=== PATIENT | female | born 1955 | race Caucasian/White ===

== ENCOUNTER 2018-01-30 12:37 | Observation (INO) ==
--- NOTE | 2018-01-30 12:59 | Emergency Department Note ---
ED Disposition Clinical Impression: Troponin level elevated Disposition: Admitted As Inpatient Condition on Discharge: Good Additional Instructions: Dr Houser ([facility]) will take pt to [facility] - Critical Care Critical Care Time: No Attestation: On , the high probability of a clinically significant, sudden or life threatening deterioration of the following system(s) required my full and direct attention, intervention and personal management. The time I documented below is in addition to time spent performing reported procedures but includes the following listed in this critical care notation. Medical Decision Making - Medical Records Medical records reviewed: Yes: I reviewed the patient's medical records. - [place] Inquiry Pt receiving controlled substance: No Vital Signs: 01/30/18 12:39 Temperature 97.8 F Temperature Source Oral Pulse Rate [Left Radial] 98 H Respiratory Rate 22 Blood Pressure [Right Arm] 131/74 Blood Pressure Mean [Right Arm] 93 Blood Pressure Source [Right Arm] Automatic Cuff Blood Pressure Position [Right Arm] Sitting 02 Sat by Pulse Oximetry 74 L Oxygen Delivery Method Room Air - Lab Data Lab results reviewed: Yes: I reviewed the patient's lab results. Lab Results 01/30/18 13:05: WBC 15.9 H, RBC 4.69, Hgb 13.8, Hct 42.6, MCV 90.9, MCH 29.5, MCHC 32.4, RDW 14.7, Plt Count 347, MPV 7.7, Neut % (Auto) 85.5 H, Lymph % (Auto) 9.3 L, [place] % (Auto) 4.6, Eos % (Auto) 0.3, Baso % (Auto) 0.3, Neut # (Auto) 13.6 H, Lymph # (Auto) 1.5, [place] # (Auto) 0.7, Eos # (Auto) 0.1, Baso # (Auto) 0.0, Total Counted 100, Neutrophils % (Manual) 84 H, Band Neutrophils % 2.0, Lymphocytes % (Manual) 9 L, Monocytes % (Manual) 5, Platelet Estimate Normal, RBC Morphology Normal 01/30/18 13:05: Sodium 131 L, Potassium 3.8, Chloride 93 L, Carbon Dioxide 27, Anion Gap 14.8, BUN 27 H, Creatinine 0.91, Estimated Creat Clear 61, Estimated GFR 63, Est GFR ( Amer) 76, Glucose 115 H, Calcium 9.4, Total Bilirubin 1.1 H, AST 13 L, ALT 24, Alkaline Phosphatase 144 H, Troponin I 0.91 H, Total Protein 8.2, Albumin 2.8 L, Globulin 5.4 H, Albumin/Globulin Ratio 0.5 L 01/30/18 13:05: Lactate 1.8 01/30/18 13:05: B-Natriuretic Peptide 1310 H 01/30/18 13:05: D-Dimer 955 H* 01/30/18 13:15: Influenza Type A Ag Negative, Influenza Type B Ag Negative Result diagrams: 01/30/18 13:05 01/30/18 13:05 Orders (Tests/Meds): ED MEDICATIONS Generic Name Dose Route Start Last Admin Trade Name Freq PRN Reason Stop Dose Admin Levofloxacin/Dextrose 500 mg in 100 mls @ 100 mls/hr 01/30/18 14:15 01/30/18 14:13 Levaquin 500mg/100ml Premix IV 02/13/18 14:14 100 mls/hr Q24H SHRUTHI Administration Protocol Discontinued Medications Generic Name Dose Route Start Last Admin Trade Name Freq PRN Reason Stop Dose Admin Albuterol/Ipratropium 3 ml 01/30/18 12:55 01/30/18 12:55 Duoneb 3ml Neb IH 01/30/18 12:56 3 ml ONCE ONE Administration Aspirin 324 mg 01/30/18 14:51 01/30/18 14:54 Aspirin 81mg Chewable Tablet PO 01/30/18 14:52 324 mg ONCE ONE Administration Iopamidol 75 ml 01/30/18 14:32 01/30/18 14:33 [id number]; 75ml Vial IV 01/30/18 14:33 75 ml ONCE ONE Administration Protocol Methylprednisolone Sodium Succinate 125 mg 01/30/18 12:55 01/30/18 13:01 Solu-Medrol 125mg/2ml Vial IM 01/30/18 12:56 125 mg ONCE ONE Administration Nitroglycerin 0.5 gm 01/30/18 14:51 01/30/18 14:54 Nitroglycerin 1 Inch Oint Udp TD 01/30/18 14:52 0.5 gm ONCE ONE Administration Sodium Chloride 50 ml 01/30/18 14:32 01/30/18 14:32 Rad-Ns 50ml Vial IV 01/30/18 14:33 50 ml ONCE ONE Administration Sodium Chloride 10 ml 01/30/18 14:32 01/30/18 14:33 Rad-Saline Flush 10ml Syringe IV 01/30/18 14:33 10 ml ONCE ONE Administration Ticagrelor 180 mg 01/30/18 14:51 01/30/18 14:54 Brilinta 90mg Tablet PO 01/30/18 14:52 180 mg ONCE ONE Administration ORDERS Category Date Time Status CTA Chest [CT angio chest] Stat Cat Scan 01/30/18 14:06 Taken Blood Culture Stat Micro 01/30/18 13:05 Received ECG Request by /Angella Stat Y 01/30/18 14:30 Ordered - ECG Data Tracing #1 I reviewed this ECG and interpreted as documented below: Normal Sinus Rhythm: Yes (anterior t abn, no stemi) General Adult HPI - General Chief complaint: Shortness of Breath/Dyspnea Stated complaint: SOA Hasnt eated 4 days Time Seen by Provider: 01/30/18 12:56 Mode of Arrival: Ambulatory Limitations: No Limitations Description of Symptoms (Recalled from ER Triage Doc. by RN): states she had an ear infection and what she thought was bronchitis over . States she got better but over the past four days she has had trouble breathing and has been unable to eat - History of Present Illness HPI narrative: mild to mod off and on congested cough today, no fever, speech fluent - Related Data Home Medications Medication Instructions Recorded Confirmed No Known Home Medications 01/30/18 01/30/18 Allergies Allergy/AdvReac Type Severity Reaction Status Date / Time No Known Allergies Allergy Verified 01/30/18 12:53 [facility] History I have reviewed the patient's past medical history: Yes - Social History Educational Level: Completed High School Smoking Status: Former smoker Tobacco Type: cigarettes Alcohol Intake: never - Psychiatric History Expresses thoughts of harming self/others: None Suicide Plan Description: No Plan ROS Obtained: Yes Systems reviewed as appropriate & no additional complaints - Constitutional Constitutional: Denies fever(s) - Eyes Eyes: Denies eye discharge - ENT Ears, Nose, Mouth, and Throat: Denies nasal congestion - Cardiovascular Cardiovascular: Denies chest pain - Respiratory Respiratory: Yes cough, Yes dyspnea - Gastrointestinal Gastrointestingal: Denies: abdominal pain - Musculoskeletal Musculoskeletal: Denies muscle weakness - Integumentary/Breasts Skin/Breast: Denies rash - Neurologic Neurologic: Denies dizziness Physical Exam - General General appearance: alert, in no apparent distress - Head Head exam: atraumatic - Eye Eye exam: Present: normal appearance - ENT ENT exam: Present: normal exam - Neck Neck exam: Present: normal inspection - Chest Chest inspection: Present: normal inspection - Respiratory Respiratory exam: Present: wheezes. Absent: stridor - Cardiovascular Cardiovascular exam: Present: regular rate, normal rhythm - Abdominal Exam Abdominal exam: Present: soft. Absent: rebound - Extremities Exam Extremities exam: Present: full ROM - Neurological Exam Neurological exam: Present: alert, oriented X3 - Psychiatric Psychiatric exam: Present: normal affect - Skin Skin exam: Present: warm, dry
[2018-01-30 13:28] LABS: Basophils % 0.3 % (0.1-2.0); Eosinophils # 0.1 K/mm3 (0.0-0.4); Eosinophils % 0.3 % (0.1-12.0); Hematocrit 42.6 % (37.0-47.0); Hemoglobin 13.8 g/dL (12.2-16.2); Lymphocytes # 1.5 K/mm3 (0.7-4.5); Lymphocytes % 9.3 % (10-50); Mean Corpuscular HGB Conc 32.4 g/dL (31.8-35.4); Mean Corpuscular Hemoglobin 29.5 pg (27.0-31.2); Mean Corpuscular Volume 90.9 fl (81-99); Mean Platelet Volume 7.7 fl (7.4-10.4); Monocytes # 0.7 K/mm3 (0.1-1.0); Monocytes % 4.6 % (1.7-9.3); Neutrophils # 13.6 K/mm3 (1.8-7.8); Neutrophils % 85.5 % (37.0-80.0); Platelet Count 347 K/mm3 (142-424); Red Blood Count 4.69 M/mm3 (4.20-5.40); Red Cell Distribution Width 14.7 % (11.5-17.5); White Blood Count 15.9 K/mm3 (4.8-10.8)
[2018-01-30 14:00] LABS: Lymphocytes % 9 % (10-50); Monocytes % 5 % (2-9); Neutrophils % 84 % (42-76); RBC Morphology Normal; Total Cells Counted 100
[2018-01-30 14:02] LABS: Albumin Level 2.8 gm/dL (3.4-5.0); Albumin/Globulin Ratio 0.5 (1.1-1.8); Anion Gap 14.8 mEq/L (5-15); Bilirubin,Total 1.1 mg/dL (0.2-1.0); Calcium 9.4 mg/dL (8.5-10.1); Globulin 5.4 gm/dl (1.3-3.2); Potassium 3.8 mmoL/L (3.5-5.1); Total Protein,Serum 8.2 gm/dL (6.4-8.2)
--- NOTE | 2018-01-30 14:54 | Consult Report ---
History of Present Illness Consult date: 01/30/18 Consult reason: chest pain, shortness of breath Chief complaint: Chest pain, elevated troponin Additional 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:: 1. Tobacco use 2. Hospitalized, 01/2018, for SOA with elevated D-dimer (CT of chest negative for PE) along with elevated troponin (0.91) with abnormal EKG (PRWP anteriorly with ST coving) for which patient had cardiac cath (no evidence of acute thrombus or significant stenosis). Likely all related to pneumonia. History of present illness: 62-year-old white female with tobacco use presented to the ER for shortness of breath. Patient relates recent cold-like symptoms that progressed to difficulty hearing and possible ear infection to now with shortness of breath and cough. She denies any chest pain but relates chest tightness and shortness of breath with exertion. She does smoke. Denies any history of hypertension or diabetes. Initial ER workup revealed elevated troponin. EKG obtained after patient patient returned from CT scan for elevated d-dimer. EKG shows sinus rhythm with slight coving of the ST segments in the anterior leads. Cardiology consulted for evaluation recommendations. [facility] History - *Social History Educational Level: Completed High School Smoking Status: Former smoker Tobacco Type: cigarettes Alcohol Intake: never - Psychiatric History Expresses thoughts of harming self/others: None Suicide Plan Description: No Plan Meds Home Medications Medication Instructions Recorded Confirmed Type No Known Home Medications 01/30/18 01/30/18 History Allergies Allergy/AdvReac Type Severity Reaction Status Date / Time No Known Allergies Allergy Verified 01/30/18 12:53 Review of Systems - *Cardiovascular Reports chest pain, Reports shortness of breath with activity - *Respiratory Reports shortness of breath with activity - *Gastrointestinal Denies abdominal pain, Denies loose stools - *Genitourinary Denies blood in urine - *Musculoskeletal Denies joint pain, Denies back pain - *Neurologic Denies dizziness Exam Vital signs and Labs for Last 24 Hours: Temp Pulse Resp BP Pulse Ox 97.8 F 98 H 22 131/74 74 L 01/30/18 12:39 01/30/18 12:39 01/30/18 12:39 01/30/18 12:39 01/30/18 12:39 Laboratory Results - last 24 hr 01/30/18 13:05: WBC 15.9 H, RBC 4.69, Hgb 13.8, Hct 42.6, MCV 90.9, MCH 29.5, MCHC 32.4, RDW 14.7, Plt Count 347, MPV 7.7, Neut % (Auto) 85.5 H, Lymph % (Auto) 9.3 L, [place] % (Auto) 4.6, Eos % (Auto) 0.3, Baso % (Auto) 0.3, Neut # (Auto) 13.6 H, Lymph # (Auto) 1.5, [place] # (Auto) 0.7, Eos # (Auto) 0.1, Baso # (Auto) 0.0, Total Counted 100, Neutrophils % (Manual) 84 H, Band Neutrophils % 2.0, Lymphocytes % (Manual) 9 L, Monocytes % (Manual) 5, Platelet Estimate Normal, RBC Morphology Normal 01/30/18 13:05: Sodium 131 L, Potassium 3.8, Chloride 93 L, Carbon Dioxide 27, Anion Gap 14.8, BUN 27 H, Creatinine 0.91, Estimated Creat Clear 61, Estimated GFR 63, Est GFR ( Amer) 76, Glucose 115 H, Calcium 9.4, Total Bilirubin 1.1 H, AST 13 L, ALT 24, Alkaline Phosphatase 144 H, Troponin I 0.91 H, Total Protein 8.2, Albumin 2.8 L, Globulin 5.4 H, Albumin/Globulin Ratio 0.5 L 01/30/18 13:05: Lactate 1.8 01/30/18 13:05: B-Natriuretic Peptide 1310 H 01/30/18 13:05: D-Dimer 955 H* 01/30/18 13:15: Influenza Type A Ag Negative, Influenza Type B Ag Negative I & O for Last 24 hours: Intake & Output 01/28/18 01/29/18 01/30/18 01/31/18 11:59 11:59 11:59 11:59 Weight 145 lb - *Routine Neck Exam Present: supple. Absent: JVD, carotid bruit - *Routine Respiratory Exam Present: decreased breath sounds, crackles, diminished air movement. Absent: accessory muscle use, rales, rhonchi, wheezes - *Routine Cardiovascular Exam Present: RRR. Absent: murmur, gallop, rubs - *Routine Abdominal Exam Present: soft. Absent: tenderness, distended, guarding - *Routine Extremities Exam Absent: edema, calf tenderness - *Routine Neurological Exam Present: alert, oriented X3, moving all extremities Assessment and Plan (1) Acute myocardial infarction Current visit: Yes Status: Acute Category: Medical Code(s): I21.9 - Acute myocardial infarction, unspecified (2) Tobacco use Current visit: Yes Status: Acute Category: Medical Code(s): Z72.0 - Tobacco use (3) Elevated d-dimer Current visit: Yes Status: Acute Category: Medical Code(s): R79.89 - Other specified abnormal findings of blood chemistry (4) COPD (chronic obstructive pulmonary disease) Current visit: Yes Status: Acute Category: Medical Code(s): J44.9 - Chronic obstructive pulmonary disease, unspecified - Assessment and plan all Dx Assessment and Plan for all problems:: In light of the elevated troponin with abnormal EKG, recommend proceeding with cardiac catheterization today. Patient is to be given 4 baby aspirin along with Brilinta 180 mg daily and 1 inch of Nitropaste. Further recommendations to follow.
--- NOTE | 2018-01-30 17:12 | History & Physical Report ---
*Admission Date: 01/30/18 *Chief complaint: SOA *History of present illness: 62yo F with Hx of COPD who presents with SOA, Cest pain, Elevated troponins. HEart cath after Cards consult Dx: PNA, NSTEMI 2, COPD, CHF exacerbation [facility] History 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: Denies:: Cancer, Diabetes Mellitus Type 1, Diabetes Mellitus Type 2, MRSA Other Surgeries: Yes: Tubal Ligation Amputation: No Fractures: No - *Social History Educational Level: Attended High School Smoking Status: Current every day smoker Tobacco Type: cigarettes # Packs/Day (cigarettes): 1 Alcohol Intake: former Alcohol Intake Frequency:: 0-2 drinks per day Occupational Status: retired Housing: house Household Members: children - Psychiatric History Expresses thoughts of harming self/others: None Suicide Plan Description: No Plan *Family Hx:: Non-contributory Review of Systems - *Neurologic Denies dizziness Meds Home Medications Medication Instructions Recorded Confirmed Type No Known Home Medications 01/30/18 01/30/18 History Allergies Allergy/AdvReac Type Severity Reaction Status Date / Time No Known Allergies Allergy Verified 01/30/18 12:53 Exam Vital signs and Labs for Last 24 Hours: Temp Pulse Resp BP Pulse Ox 98.3 F 79 20 143/86 H 96 01/30/18 16:35 01/30/18 16:35 01/30/18 16:35 01/30/18 16:35 01/30/18 16:35 Laboratory Results - last 24 hr 01/30/18 13:05: WBC 15.9 H, RBC 4.69, Hgb 13.8, Hct 42.6, MCV 90.9, MCH 29.5, MCHC 32.4, RDW 14.7, Plt Count 347, MPV 7.7, Neut % (Auto) 85.5 H, Lymph % (Auto) 9.3 L, [place] % (Auto) 4.6, Eos % (Auto) 0.3, Baso % (Auto) 0.3, Neut # (Auto) 13.6 H, Lymph # (Auto) 1.5, [place] # (Auto) 0.7, Eos # (Auto) 0.1, Baso # (Auto) 0.0, Total Counted 100, Neutrophils % (Manual) 84 H, Band Neutrophils % 2.0, Lymphocytes % (Manual) 9 L, Monocytes % (Manual) 5, Platelet Estimate Normal, RBC Morphology Normal 01/30/18 13:05: Sodium 131 L, Potassium 3.8, Chloride 93 L, Carbon Dioxide 27, Anion Gap 14.8, BUN 27 H, Creatinine 0.91, Estimated Creat Clear 61, Estimated GFR 63, Est GFR ( Amer) 76, Glucose 115 H, Calcium 9.4, Total Bilirubin 1.1 H, AST 13 L, ALT 24, Alkaline Phosphatase 144 H, Troponin I 0.91 H, Total Protein 8.2, Albumin 2.8 L, Globulin 5.4 H, Albumin/Globulin Ratio 0.5 L 01/30/18 13:05: Lactate 1.8 01/30/18 13:05: B-Natriuretic Peptide 1310 H 01/30/18 13:05: D-Dimer 955 H* 01/30/18 13:15: Influenza Type A Ag Negative, Influenza Type B Ag Negative I & O for Last 24 hours: Intake & Output 01/27/18 01/28/18 01/29/18 01/30/18 23:59 23:59 23:59 23:59 Weight 75.75 kg Assessment and Plan (1) Acute myocardial infarction Current visit: Yes Status: Acute Category: Medical Code(s): I21.9 - Acute myocardial infarction, unspecified (2) Tobacco use Current visit: Yes Status: Acute Category: Medical Code(s): Z72.0 - Tobacco use (3) Elevated d-dimer Current visit: Yes Status: Acute Category: Medical Code(s): R79.89 - Other specified abnormal findings of blood chemistry (4) COPD (chronic obstructive pulmonary disease) Current visit: Yes Status: Acute Category: Medical Code(s): J44.9 - Chronic obstructive pulmonary disease, unspecified (5) Pneumonia Current visit: Yes Status: Acute Category: Medical Code(s): J18.9 - Pneumonia, unspecified organism
[2018-01-31 06:36] LABS: Basophils # 0.1 K/mm3 (0-0.2); Basophils % 0.4 % (0.1-2.0); Eosinophils % 0.1 % (0.1-12.0); Hematocrit 40.8 % (37.0-47.0); Hemoglobin 13.3 g/dL (12.2-16.2); Lymphocytes # 1.6 K/mm3 (0.7-4.5); Lymphocytes % 13.3 % (10-50); Mean Corpuscular HGB Conc 32.6 g/dL (31.8-35.4); Mean Corpuscular Hemoglobin 29.7 pg (27.0-31.2); Mean Corpuscular Volume 91.2 fl (81-99); Monocytes # 0.8 K/mm3 (0.1-1.0); Monocytes % 6.5 % (1.7-9.3); Neutrophils # 9.5 K/mm3 (1.8-7.8); Neutrophils % 79.6 % (37.0-80.0); Platelet Count 338 K/mm3 (142-424); Red Blood Count 4.47 M/mm3 (4.20-5.40); Red Cell Distribution Width 14.7 % (11.5-17.5)
[2018-01-31 06:48] LABS: Anion Gap 10.5 mEq/L (5-15); Calcium 8.6 mg/dL (8.5-10.1); Potassium 3.5 mmoL/L (3.5-5.1)
[2018-01-31 06:55] LABS: Chol/HDL Ratio 3.9 (1-3.5)
--- NOTE | 2018-01-31 07:42 | Pharmacy Consult Notes ---
[facility] Pharmacy VTE Monitoring - Patient Demographics Admission date: 01/30/18 Report Date: 01/31/18 Time: 07:42 Allergies/Adverse Reactions: Patient Allergies No Known Allergies Allergy (Verified 01/30/18 12:53) Height: 1.68 m Weight: 75.75 kg Patient Problems: Current Active Problems Acute myocardial infarction (Acute) Tobacco use (Acute) Elevated d-dimer (Acute) COPD (chronic obstructive pulmonary disease) (Acute) Troponin level elevated (Acute) Pneumonia (Acute) - VTE Risk Labs: VTE Related Lab Results Hgb 13.3 g/dL (12.2-16.2) 01/31/18 06:09 Hct 40.8 % (37.0-47.0) 01/31/18 06:09 Plt Count 338 K/mm3 (142-424) 01/31/18 06:09 BUN 24 mg/dL (7-18) H 01/31/18 06:09 Creatinine 0.88 mg/dL (0.55-1.02) 01/31/18 06:09 Estimated Creat Clear 71 mL/min (50-200) 01/31/18 06:09 VTE Score: 2 - Prophylaxis VTE Prophylaxis Ordered?: Yes Types of VTE Prophylaxis: TEDS Knee High Location of Applied Device: Bilateral Lower Extremeties - VTE Diagnosis Confirmed Treatment or plan recommended: Continue Current Treatment
--- NOTE | 2018-01-31 09:40 | Progress Note ---
Subjective Date: 01/31/18 Time: 09:36 Principal diagnosis: SOA Interval history: 62-year-old white female sitting in bed in no acute distress. Still with some conversational shortness of breath. Right wrist access site looks good. Patient denies any chest pain, pressure or tightness peer Exam Vital signs and Labs for Last 24 Hours: Temp Pulse Resp BP Pulse Ox 97.9 F 80 17 114/68 84 L 01/31/18 08:00 01/31/18 08:00 01/31/18 08:00 01/31/18 08:00 01/31/18 08:56 Laboratory Results - last 24 hr 01/30/18 13:05: WBC 15.9 H, RBC 4.69, Hgb 13.8, Hct 42.6, MCV 90.9, MCH 29.5, MC HC 32.4, RDW 14.7, Plt Count 347, MPV 7.7, Neut % (Auto) 85.5 H, Lymph % (Auto) 9.3 L, [place] % (Auto) 4.6, Eos % (Auto) 0.3, Baso % (Auto) 0.3, Neut # (Auto) 13.6 H, Lymph # (Auto) 1.5, [place] # (Auto) 0.7, Eos # (Auto) 0.1, Baso # (Auto) 0.0, Total Counted 100, Neutrophils % (Manual) 84 H, Band Neutrophils % 2.0, Lymphocytes % (Manual) 9 L, Monocytes % (Manual) 5, Platelet Estimate Normal, RBC Morphology Normal 01/30/18 13:05: Sodium 131 L, Potassium 3.8, Chloride 93 L, Carbon Dioxide 27, Anion Gap 14.8, BUN 27 H, Creatinine 0.91, Estimated Creat Clear 61, Estimated GFR 63, Est GFR ( Amer) 76, Glucose 115 H, Calcium 9.4, Total Bilirubin 1.1 H, AST 13 L, ALT 24, Alkaline Phosphatase 144 H, Troponin I 0.91 H, Total Protein 8.2, Albumin 2.8 L, Globulin 5.4 H, Albumin/Globulin Ratio 0.5 L 01/30/18 13:05: Lactate 1.8 01/30/18 13:05: B-Natriuretic Peptide 1310 H 01/30/18 13:05: D-Dimer 955 H* 01/30/18 13:15: Influenza Type A Ag Negative, Influenza Type B Ag Negative 01/30/18 17:05: POC Glucose 129 H 01/30/18 18:51: Troponin I 0.73 H 01/30/18 21:56: Troponin I 0.55 H 01/30/18 22:26: POC Glucose 130 H 01/31/18 05:44: POC Glucose 104 01/31/18 06:09: WBC 12.0 H, RBC 4.47, Hgb 13.3, Hct 40.8, MCV 91.2, MCH 29.7, MCHC 32.6, RDW 14.7, Plt Count 338, MPV 8.0, Neut % (Auto) 79.6, Lymph % (Auto) 13.3, [place] % (Auto) 6.5, Eos % (Auto) 0.1, Baso % (Auto) 0.4, Neut # (Auto) 9.5 H, Lymph # (Auto) 1.6, [place] # (Auto) 0.8, Eos # (Auto) 0.0, Baso # (Auto) 0.1 01/31/18 06:09: Sodium 132 L, Potassium 3.5, Chloride 92 L, Carbon Dioxide 33 H D, Anion Gap 10.5, BUN 24 H, Creatinine 0.88, Estimated Creat Clear 71, Estimated GFR 65, Est GFR ( Amer) 79, Glucose 97, Calcium 8.6 01/31/18 06:09: Triglycerides 73, Cholesterol 116 L, LDL Cholesterol 71, VLDL Cholesterol 15, HDL Cholesterol 30, Cholesterol/HDL Ratio 3.9 H I & O for Last 24 hours: Intake & Output 01/28/18 01/29/18 01/30/18 01/31/18 11:59 11:59 11:59 11:59 Intake Total 840 / 840 Output Total 700 / 700 Balance 140 / 140 Weight 167 lb 0.002 oz - *Routine Respiratory Exam Present: decreased breath sounds, rhonchi, diminished air movement. Absent: accessory muscle use, rales, wheezes - *Routine Cardiovascular Exam Present: irregularly irregular. Absent: murmur, gallop, rubs - *Routine Extremities Exam Absent: edema, calf tenderness - *Routine Neurological Exam Present: alert, oriented X3, moving all extremities Progress Note: A&P (1) Tobacco use Status: Acute Current Visit: Yes (2) Elevated d-dimer Status: Acute Current Visit: Yes (3) COPD (chronic obstructive pulmonary disease) Status: Acute Current Visit: Yes (4) Non-ST elevation MO (NSTEMI) Status: Acute Current Visit: Yes (5) Diastolic dysfunction with heart failure Status: Acute Current Visit: Yes Assessment and Plan for All Diagnoses:: Patient's elevated troponin/non-ST elevation MO felt secondary to demand ischemia related to pulmonary compromise. Normal coronary arteries noted on cardiac catheterization but with evidence of diastolic dysfunction and hyperdynamic left ventricle. Patient has been started on beta-maricarmen therapy with improved heart rate and blood pressure. She will also be started on low- dose diuretic therapy as well (recommend either spironolactone or low-dose Lasix with lab work next week). Patient does have paroxysmal atrial fibrillation and will be started on Eliquis per Dr. Calder. Rod for discharge from cardiology standpoint. Follow-up in our clinic in 1 week.
--- NOTE | 2018-01-31 11:30 | H&P/Discharge Summary ---
General - General Admission date:: 01/30/18 Discharge date: 01/31/18 *Admission Date: 01/30/18 *Chief complaint: chest pain *History of present illness: 62yo F with Hx of COPD, tobacco use disorder who presents to ER with SOA, Chest pain, Elevated troponins. Patient complains of recent cold-like symptoms that progressed to difficulty hearing and possible ear infection to now with shortness of breath and cough. She denies any chest pain but relates chest tightness and shortness of breath with exertion. She does smoke. Denies any history of hypertension or diabetes. Initial ER workup revealed elevated trop onin. EKG obtained after patient patient returned from CT scan for elevated d- dimer. EKG shows sinus rhythm with slight coving of the ST segments in the anterior leads. Cardiology consulted for evaluation recommendations. Patient admitted to medicine for further management. Taken to [facility] due to elevated troponins, concern for inferior/septal infarct. Of note chest imaging showed positive airspace disease in the lingula consistent with pneumonia. Started on antibiotics. Required supplemental oxygen. Additionally had some volume overload status was given diuretics. [facility] History I have reviewed the patient's past medical history: Yes 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: Denies:: Cancer, Diabetes Mellitus Type 1, Diabetes Mellitus Type 2, MRSA Other Surgeries: Yes: Tubal Ligation Amputation: No Fractures: No - *Social History Educational Level: Completed High School Smoking Status: Former smoker Tobacco Type: cigarettes # Packs/Day (cigarettes): 1 Alcohol Intake: never Alcohol Intake Frequency:: 0-2 drinks per day Occupational Status: retired Housing: house Household Members: children - Psychiatric History Expresses thoughts of harming self/others: None Suicide Plan Description: No Plan *Family Hx:: Non-contributory Review of Systems - Review of Systems Review of systems:: pertinent systems reviewed and negative unless documented below - *Neurologic Denies dizziness Exam Vital signs and Labs for Last 24 Hours: Temp Pulse Resp BP Pulse Ox 98.0 F 74 18 126/66 92 L 01/31/18 11:23 01/31/18 11:23 01/31/18 11:23 01/31/18 11:23 01/31/18 11:23 Laboratory Results - last 24 hr 01/30/18 13:05: WBC 15.9 H, RBC 4.69, Hgb 13.8, Hct 42.6, MCV 90.9, MCH 29.5, MCHC 32.4, RDW 14.7, Plt Count 347, MPV 7.7, Neut % (Auto) 85.5 H, Lymph % (Auto) 9.3 L, [place] % (Auto) 4.6, Eos % (Auto) 0.3, Baso % (Auto) 0.3, Neut # (Auto) 13.6 H, Lymph # (Auto) 1.5, [place] # (Auto) 0.7, Eos # (Auto) 0.1, Baso # (Auto) 0.0, Total Counted 100, Neutrophils % (Manual) 84 H, Band Neutrophils % 2.0, Lymphocytes % (Manual) 9 L, Monocytes % (Manual) 5, Platelet Estimate Normal, RBC Morphology Normal 01/30/18 13:05: Sodium 131 L, Potassium 3.8, Chloride 93 L, Carbon Dioxide 27, Anion Gap 14.8, BUN 27 H, Creatinine 0.91, Estimated Creat Clear 61, Estimated GFR 63, Est GFR ( Amer) 76, Glucose 115 H, Calcium 9.4, Total Bilirubin 1.1 H, AST 13 L, ALT 24, Alkaline Phosphatase 144 H, Troponin I 0.91 H, Total Protein 8.2, Albumin 2.8 L, Globulin 5.4 H, Albumin/Globulin Ratio 0.5 L 01/30/18 13:05: Lactate 1.8 01/30/18 13:05: B-Natriuretic Peptide 1310 H 01/30/18 13:05: D-Dimer 955 H* 01/30/18 13:15: Influenza Type A Ag Negative, Influenza Type B Ag Negative 01/30/18 17:05: POC Glucose 129 H 01/30/18 18:51: Troponin I 0.73 H 01/30/18 21:56: Troponin I 0.55 H 01/30/18 22:26: POC Glucose 130 H 01/31/18 05:44: POC Glucose 104 01/31/18 06:09: WBC 12.0 H, RBC 4.47, Hgb 13.3, Hct 40.8, MCV 91.2, MCH 29.7, MCHC 32.6, RDW 14.7, Plt Count 338, MPV 8.0, Neut % (Auto) 79.6, Lymph % (Auto) 13.3, [place] % (Auto) 6.5, Eos % (Auto) 0.1, Baso % (Auto) 0.4, Neut # (Auto) 9.5 H, Lymph # (Auto) 1.6, [place] # (Auto) 0.8, Eos # (Auto) 0.0, Baso # (Auto) 0.1 01/31/18 06:09: Sodium 132 L, Potassium 3.5, Chloride 92 L, Carbon Dioxide 33 H D, Anion Gap 10.5, BUN 24 H, Creatinine 0.88, Estimated Creat Clear 71, Estimated GFR 65, Est GFR ( Amer) 79, Glucose 97, Calcium 8.6 01/31/18 06:09: Triglycerides 73, Cholesterol 116 L, LDL Cholesterol 71, VLDL Cholesterol 15, HDL Cholesterol 30, Cholesterol/HDL Ratio 3.9 H I & O for Last 24 hours: Intake & Output 01/28/18 01/29/18 01/30/18 01/31/18 23:59 23:59 23:59 23:59 Intake Total 240 / 240 600 / 600 Output Total 700 / 700 Balance -460 / -460 600 / 600 Weight 75.75 kg 75.75 kg - *Routine HEENT Exam Head: Present: normocephalic, atraumatic Eye: Present: EOMI, PERRL ENT: Present: mucous membranes moist. Absent: dentition normal - *Routine Neck Exam Present: supple. Absent: lymphadenopathy - *Routine Respiratory Exam Present: rales. Absent: accessory muscle use, CTA bilaterally, prolonged expiratory phase, wheezes, crackles - *Routine Cardiovascular Exam Present: Normal S1, irregularly irregular. Absent: RRR, murmur - *Routine Abdominal Exam Present: soft, normoactive bowel sounds. Absent: tenderness - *Routine Rectal Exam Patient deferred: visual exam - *Routine Exam Patient deferred: external exam - *Routine Extremities Exam Absent: cyanosis, clubbing, edema - *Routine Skin Exam Present: intact. Absent: cyanosis, erythema - *Routine Neurological Exam Present: alert, oriented X3. Absent: altered mental status Hospital Course Hospital Course: Patient was taken to the [facility] emergently due to elevated troponins and EKG changes. Found to have an coronaries. Additionally found to have right-sided heart failure/diastolic dysfunction. Treated with diuresis for CHF exacerbation and antibiotics for pneumonia. On supplemental oxygen overnight. Patient had improvement in symptoms over the first 24 hours. Transition to oral medications for continued management. Of note patient has had episodes of A. fib since her heart cath. Was started on metoprolol in the [facility]. Plan to continue metoprolol for rate control, echo obtained with no signs of thrombus. Initiate Eliquis for anticoagulation. Set up with home oxygen due to consistent O2 sats below 88 while on room air. No further episodes of chest pain. Results Labs on day of discharge: Labs from last 24 hours 01/31/18 01/31/18 01/31/18 06:09 06:09 06:09 WBC 12.0 H RBC 4.47 Hgb 13.3 Hct 40.8 MCV 91.2 MCH 29.7 MCHC 32.6 RDW 14.7 Plt Count 338 MPV 8.0 Neut % (Auto) 79.6 Lymph % (Auto) 13.3 [place] % (Auto) 6.5 Eos % (Auto) 0.1 Baso % (Auto) 0.4 Neut # (Auto) 9.5 H Lymph # (Auto) 1.6 [place] # (Auto) 0.8 Eos # (Auto) 0.0 Baso # (Auto) 0.1 Total Counted Neutrophils % (Manual) Band Neutrophils % Lymphocytes % (Manual) Monocytes % (Manual) Platelet Estimate RBC Morphology D-Dimer Sodium 132 L Potassium 3.5 Chloride 92 L Carbon Dioxide 33 H D Anion Gap 10.5 BUN 24 H Creatinine 0.88 Estimated Creat Clear 71 Estimated GFR 65 Est GFR ( Amer) 79 Glucose 97 POC Glucose Lactate Calcium 8.6 Total Bilirubin AST ALT Alkaline Phosphatase Troponin I B-Natriuretic Peptide Total Protein Albumin Globulin Albumin/Globulin Ratio Triglycerides 73 Cholesterol 116 L LDL Cholesterol 71 VLDL Cholesterol 15 HDL Cholesterol 30 Cholesterol/HDL Ratio 3.9 H Influenza Type A Ag Influenza Type B Ag 01/31/18 01/30/18 01/30/18 05:44 22:26 21:56 WBC RBC Hgb Hct MCV MCH MCHC RDW Plt Count MPV Neut % (Auto) Lymph % (Auto) [place] % (Auto) Eos % (Auto) Baso % (Auto) Neut # (Auto) Lymph # (Auto) [place] # (Auto) Eos # (Auto) Baso # (Auto) Total Counted Neutrophils % (Manual) Band Neutrophils % Lymphocytes % (Manual) Monocytes % (Manual) Platelet Estimate RBC Morphology D-Dimer Sodium Potassium Chloride Carbon Dioxide Anion Gap BUN Creatinine Estimated Creat Clear Estimated GFR Est GFR ( Amer) Glucose POC Glucose 104 130 H Lactate Calcium Total Bilirubin AST ALT Alkaline Phosphatase Troponin I 0.55 H B-Natriuretic Peptide Total Protein Albumin Globulin Albumin/Globulin Ratio Triglycerides Cholesterol LDL Cholesterol VLDL Cholesterol HDL Cholesterol Cholesterol/HDL Ratio Influenza Type A Ag Influenza Type B Ag 01/30/18 01/30/18 01/30/18 18:51 17:05 13:15 WBC RBC Hgb Hct MCV MCH MCHC RDW Plt Count MPV Neut % (Auto) Lymph % (Auto) [place] % (Auto) Eos % (Auto) Baso % (Auto) Neut # (Auto) Lymph # (Auto) [place] # (Auto) Eos # (Auto) Baso # (Auto) Total Counted Neutrophils % (Manual) Band Neutrophils % Lymphocytes % (Manual) Monocytes % (Manual) Platelet Estimate RBC Morphology D-Dimer Sodium Potassium Chloride Carbon Dioxide Anion Gap BUN Creatinine Estimated Creat Clear Estimated GFR Est GFR ( Amer) Glucose POC Glucose 129 H Lactate Calcium Total Bilirubin AST ALT Alkaline Phosphatase Troponin I 0.73 H B-Natriuretic Peptide Total Protein Albumin Globulin Albumin/Globulin Ratio Triglycerides Cholesterol LDL Cholesterol VLDL Cholesterol HDL Cholesterol Cholesterol/HDL Ratio Influenza Type A Ag Negative Influenza Type B Ag Negative 01/30/18 01/30/18 01/30/18 13:05 13:05 13:05 WBC RBC Hgb Hct MCV MCH MCHC RDW Plt Count MPV Neut % (Auto) Lymph % (Auto) [place] % (Auto) Eos % (Auto) Baso % (Auto) Neut # (Auto) Lymph # (Auto) [place] # (Auto) Eos # (Auto) Baso # (Auto) Total Counted Neutrophils % (Manual) Band Neutrophils % Lymphocytes % (Manual) Monocytes % (Manual) Platelet Estimate RBC Morphology D-Dimer 955 H* Sodium Potassium Chloride Carbon Dioxide Anion Gap BUN Creatinine Estimated Creat Clear Estimated GFR Est GFR ( Amer) Glucose POC Glucose Lactate 1.8 Calcium Total Bilirubin AST ALT Alkaline Phosphatase Troponin I B-Natriuretic Peptide 1310 H Total Protein Albumin Globulin Albumin/Globulin Ratio Triglycerides Cholesterol LDL Cholesterol VLDL Cholesterol HDL Cholesterol Cholesterol/HDL Ratio Influenza Type A Ag Influenza Type B Ag 01/30/18 01/30/18 13:05 13:05 WBC 15.9 H RBC 4.69 Hgb 13.8 Hct 42.6 MCV 90.9 MCH 29.5 MCHC 32.4 RDW 14.7 Plt Count 347 MPV 7.7 Neut % (Auto) 85.5 H Lymph % (Auto) 9.3 L [place] % (Auto) 4.6 Eos % (Auto) 0.3 Baso % (Auto) 0.3 Neut # (Auto) 13.6 H Lymph # (Auto) 1.5 [place] # (Auto) 0.7 Eos # (Auto) 0.1 Baso # (Auto) 0.0 Total Counted 100 Neutrophils % (Manual) 84 H Band Neutrophils % 2.0 Lymphocytes % (Manual) 9 L Monocytes % (Manual) 5 Platelet Estimate Normal RBC Morphology Normal D-Dimer Sodium 131 L Potassium 3.8 Chloride 93 L Carbon Dioxide 27 Anion Gap 14.8 BUN 27 H Creatinine 0.91 Estimated Creat Clear 61 Estimated GFR 63 Est GFR ( Amer) 76 Glucose 115 H POC Glucose Lactate Calcium 9.4 Total Bilirubin 1.1 H AST 13 L ALT 24 Alkaline Phosphatase 144 H Troponin I 0.91 H B-Natriuretic Peptide Total Protein 8.2 Albumin 2.8 L Globulin 5.4 H Albumin/Globulin Ratio 0.5 L Triglycerides Cholesterol LDL Cholesterol VLDL Cholesterol HDL Cholesterol Cholesterol/HDL Ratio Influenza Type A Ag Influenza Type B Ag DS: Diagnosis - Discharge Diagnosis (1) Tobacco use Status: Chronic (2) Elevated d-dimer Status: Acute (3) COPD (chronic obstructive pulmonary disease) Status: Chronic Problem details: Chest x-ray concerning for lingular pneumonia versus COPD exacerbation. Treated with antibiotics, attrition oral for home. Supplement oxygen started, will go home with 2 L continuous use, reassess in outpatient setting. (4) Non-ST elevation [place] (NSTEMI) Status: Acute (5) Diastolic dysfunction with heart failure Status: Chronic (6) Atrial fibrillation Status: Acute Problem details: New diagnosis. Initiated metoprolol for rate control and Eliquis for anticoagulation. Discharge Medications - Medications for Discharge Home Medication List at Discharge: New Metoprolol Succinate [Toprol XL 25mg tablet] 25 mg PO DAILY 30 Days #30 tab.er.24h Disposition Disposition: Home, Self-Care
--- NOTE | 2018-01-31 19:35 | Cardiology Report ---
PROCEDURE: 2-D M-mode and color Doppler study INDICATIONS FOR THE TEST: Chest pain COPDX Heart Murmur Tobacco SmokingX Palpitations Fatigue Syncope Edema HypertensionXDiabetes Mellitus Rheumatic Fever SOB CANTU Obesity Hyperlipidemia Family History HD Additional History CHF,ABN EKG, PAF PATIENT INFORMATION HEIGHT: 67 WEIGHT:167 GENDER: Female B/P:143/86 2-D/M-MODE INTERPRETATION: 2-D MEASUREMENTS OBSERVED VALUES IN CMS Right Ventricular Dimension (RVDd) 3.6 Interventricular Septum (Thickness)(IVsd) 1.0 Left Ventricular Internal Dimensions(LVIDd) 4.7 Left Ventricular Posterior Wall (Thickness)(LVPWd) 1.0 Aortic Root 3.7 Aortic Cusp Separation 1.8 Left Atrial Dimensions (LAD) 2.5 2D 1. Left atrium is mildly enlarged, left ventricle is normal size, mild concentric left ventricular hypertrophy, visually estimated ejection fraction 55% with no regional wall motion abnormality. 2. The right atrium and right ventricle are moderately enlarged, contractility of the right ventricle is normal, there is abnormal septal motion. 3. The aortic valve is minimally thickened and fibrosed. 4. The mitral and tricuspid valve leaflets are minimally thickened 5. The pulmonic valve is poorly is poorly visualized. 6. No significant pericardial effusion noted. DOPPLER INTERROGATION: Doppler interrogation of the aortic, mitral and tricuspid valvular presence of mild mitral and tricuspid regurgitation, dilated right ventricular systolic pressure is 49 mmHg consistent with moderate pulmonary hypertension, grade 1 diastolic dysfunction seen without tissue Doppler evidence of raised left atrial pressure. CONCLUSION: 1. Normal left ventricular size, mild concentric left ventricular hypertrophy, visually estimated ejection fraction 55% with no regional wall motion abnormality, grade 1 diastolic dysfunction seen without tissue Doppler evidence of raised left atrial pressure. 2. Moderately enlarged right ventricle with normal contractility. 3. Mild mitral and tricuspid regurgitation, calculated right ventricular systolic pressure is 49 mmHg consistent with moderate pulmonary hypertension. 4. No significant pericardial effusion noted.
== END 2018-01-31 14:36 | disposition home or self-care (01) ==
LOC: ER 12:37 → CATHLAB 15:04 → ER 15:05 → INTOOBSV 16:19 → 2ND 16:19
PROVIDERS: ADMIT Internal Medicine Adolescent Medicine; ATTEND Internal Medicine Adolescent Medicine

== ENCOUNTER → 2018-02-10 10:31 | Outpatient (CLI) | payer OTHER, SELFPAY | PROVIDERS: PCP Internal Medicine Adolescent Medicine; Visit Provider Internal Medicine Adolescent Medicine | DX: Z79.01 Long term (current) use of anticoagulants (principal) ==

== ENCOUNTER 2018-02-13 08:59 | Outpatient (CLI) | payer OTHER, SELFPAY ==
[2018-02-13 10:54] LABS: PHA INR Fingerstick 1.8 (0.9-1.1)
== END 2018-02-13 10:59 | disposition home or self-care (01) ==
LOC: ACC 09:00
PROVIDERS: PCP Internal Medicine Adolescent Medicine; Visit Provider Internal Medicine Adolescent Medicine
DX: Z51.81 Encounter for therapeutic drug level monitoring (principal); Z79.01 Long term (current) use of anticoagulants; I48.91 Unspecified atrial fibrillation
CPT/HCPCS: 85610; 99211; G0463

== ENCOUNTER 2018-02-17 09:27 | Outpatient (CLI) | payer OTHER, SELFPAY ==
[2018-02-17 10:34] LABS: PHA INR Fingerstick 1.8 (0.9-1.1)
== END 2018-02-17 10:36 | disposition home or self-care (01) ==
LOC: ACC 09:28
PROVIDERS: PCP Internal Medicine Adolescent Medicine; Visit Provider Internal Medicine Adolescent Medicine
DX: I48.91 Unspecified atrial fibrillation (principal)
CPT/HCPCS: 85610; 99211; G0463

== ENCOUNTER 2018-02-24 10:27 | Outpatient (CLI) | payer OTHER, SELFPAY ==
[2018-02-24 14:36] LABS: PHA INR Fingerstick 1.7 (0.9-1.1)
== END 2018-02-24 15:10 | disposition home or self-care (01) ==
LOC: ACC 10:28
PROVIDERS: PCP Internal Medicine Adolescent Medicine; Visit Provider Internal Medicine Adolescent Medicine
DX: Z51.81 Encounter for therapeutic drug level monitoring (principal); Z79.01 Long term (current) use of anticoagulants; I48.91 Unspecified atrial fibrillation
CPT/HCPCS: 85610; 99211; G0463

== ENCOUNTER 2018-03-10 11:28 | Outpatient (CLI) | payer OTHER, SELFPAY ==
[2018-03-10 14:33] LABS: PHA INR Fingerstick 1.7 (0.9-1.1)
== END 2018-03-10 14:41 | disposition home or self-care (01) ==
LOC: ACC 11:31
PROVIDERS: PCP Internal Medicine Adolescent Medicine; Visit Provider Internal Medicine Adolescent Medicine
DX: Z51.81 Encounter for therapeutic drug level monitoring (principal); Z79.01 Long term (current) use of anticoagulants; I48.91 Unspecified atrial fibrillation
CPT/HCPCS: 85610; 99211; G0463

== ENCOUNTER 2018-03-24 10:32 | Outpatient (CLI) | payer OTHER, SELFPAY ==
[2018-03-24 13:35] LABS: PHA INR Fingerstick 1.8 (0.9-1.1)
== END 2018-03-24 13:39 | disposition home or self-care (01) ==
LOC: ACC 10:33
PROVIDERS: PCP Internal Medicine Adolescent Medicine; Visit Provider Internal Medicine Adolescent Medicine
DX: Z51.81 Encounter for therapeutic drug level monitoring (principal); Z79.01 Long term (current) use of anticoagulants; I48.91 Unspecified atrial fibrillation
CPT/HCPCS: 85610; 99211; G0463

== ENCOUNTER 2018-04-19 09:14 | Outpatient (CLI) | payer MEDICAID, SELFPAY ==
[2018-04-19 13:51] LABS: PHA INR Fingerstick 2.3 (0.9-1.1)
== END 2018-04-19 13:59 | disposition home or self-care (01) ==
LOC: ACC 09:15
PROVIDERS: PCP Internal Medicine Adolescent Medicine; Visit Provider Internal Medicine Adolescent Medicine
DX: Z51.81 Encounter for therapeutic drug level monitoring (principal); Z79.01 Long term (current) use of anticoagulants
CPT/HCPCS: 85610; 99211; G0463

== ENCOUNTER 2018-05-17 09:10 | Outpatient (CLI) | payer MEDICAID, SELFPAY | END 2018-05-17 12:10 | disposition home or self-care (01) | LOC: ACC 09:11 | PROVIDERS: PCP Internal Medicine Adolescent Medicine; Visit Provider Internal Medicine Adolescent Medicine | DX: Z51.81 Encounter for therapeutic drug level monitoring (principal); Z79.01 Long term (current) use of anticoagulants; I48.91 Unspecified atrial fibrillation | CPT/HCPCS: 85610; 99211; G0463 ==

== ENCOUNTER 2018-06-14 09:13 | Outpatient (CLI) | payer MEDICAID, SELFPAY ==
[2018-06-14 10:59] LABS: PHA INR Fingerstick 1.7 (0.9-1.1)
== END 2018-06-14 11:04 | disposition home or self-care (01) ==
LOC: ACC 09:14
PROVIDERS: PCP Internal Medicine Adolescent Medicine; Visit Provider Internal Medicine Adolescent Medicine
DX: Z51.81 Encounter for therapeutic drug level monitoring (principal); Z79.01 Long term (current) use of anticoagulants
CPT/HCPCS: 85610; 99211; G0463

== ENCOUNTER 2018-07-12 09:40 | Outpatient (CLI) | payer MEDICAID, SELFPAY ==
[2018-07-12 12:06] LABS: PHA INR Fingerstick 2.1 (0.9-1.1)
== END 2018-07-12 15:01 | disposition home or self-care (01) ==
LOC: ACC 09:40
PROVIDERS: PCP Internal Medicine Adolescent Medicine; Visit Provider Internal Medicine Adolescent Medicine
DX: Z51.81 Encounter for therapeutic drug level monitoring (principal); Z79.01 Long term (current) use of anticoagulants; I48.91 Unspecified atrial fibrillation
CPT/HCPCS: 85610; 99211; G0463

== ENCOUNTER 2018-08-09 09:34 | Outpatient (CLI) | payer MEDICAID, SELFPAY | END 2018-08-09 11:28 | disposition home or self-care (01) | LOC: ACC 09:35 | PROVIDERS: PCP Internal Medicine Adolescent Medicine; Visit Provider Internal Medicine Adolescent Medicine | DX: Z51.81 Encounter for therapeutic drug level monitoring (principal); Z79.01 Long term (current) use of anticoagulants; I48.91 Unspecified atrial fibrillation | CPT/HCPCS: 85610; 99211; G0463 ==

== ENCOUNTER 2018-09-05 07:57 | Outpatient (CLI) | payer MEDICAID, SELFPAY ==
[2018-09-05 12:00] LABS: PHA INR Fingerstick 2.5 (0.9-1.1)
== END 2018-09-05 12:01 | disposition home or self-care (01) ==
LOC: ACC 07:58
PROVIDERS: PCP Internal Medicine Adolescent Medicine; Visit Provider Internal Medicine Adolescent Medicine
DX: Z51.81 Encounter for therapeutic drug level monitoring (principal); Z79.01 Long term (current) use of anticoagulants; I48.91 Unspecified atrial fibrillation
CPT/HCPCS: 85610; 99211; G0463

== ENCOUNTER 2018-10-17 08:14 | Outpatient (CLI) | payer MEDICAID, SELFPAY ==
[2018-10-17 14:34] LABS: PHA INR Fingerstick 3.3 (0.9-1.1)
== END 2018-10-17 14:43 | disposition home or self-care (01) ==
LOC: ACC 08:15
PROVIDERS: PCP Internal Medicine Adolescent Medicine; Visit Provider Internal Medicine Adolescent Medicine
DX: Z51.81 Encounter for therapeutic drug level monitoring (principal); Z79.01 Long term (current) use of anticoagulants; I48.91 Unspecified atrial fibrillation
CPT/HCPCS: 85610; 99211; G0463

== ENCOUNTER 2018-11-01 08:21 | Outpatient (CLI) | payer MEDICAID, SELFPAY ==
[2018-11-01 09:57] LABS: PHA INR Fingerstick 2.8 (0.9-1.1)
== END 2018-11-01 09:58 | disposition home or self-care (01) ==
LOC: ACC 08:22
PROVIDERS: PCP Internal Medicine Adolescent Medicine; Visit Provider Internal Medicine Adolescent Medicine
DX: Z51.81 Encounter for therapeutic drug level monitoring (principal); Z79.01 Long term (current) use of anticoagulants; I48.91 Unspecified atrial fibrillation
CPT/HCPCS: 85610; 99211; G0463

== ENCOUNTER 2018-11-27 08:49 | Outpatient (CLI) | payer MEDICAID, SELFPAY ==
[2018-11-27 11:10] LABS: INR 6.67 (0.9-1.1); Prothrombin Time 63.4 seconds (9.4-11.8)
[2018-11-27 14:10] LABS: PHA INR Fingerstick 7.1 (0.9-1.1)
== END 2018-11-27 14:21 | disposition home or self-care (01) ==
PROVIDERS: PCP Internal Medicine Adolescent Medicine; Visit Provider Internal Medicine Adolescent Medicine
DX: Z51.81 Encounter for therapeutic drug level monitoring (principal); Z79.01 Long term (current) use of anticoagulants; I48.91 Unspecified atrial fibrillation
CPT/HCPCS: 36415; 85610; 99211; G0463

== ENCOUNTER 2018-12-22 09:44 | Outpatient (CLI) | payer OTHER, SELFPAY ==
[2018-12-22 13:24] LABS: PHA INR Fingerstick 3.6 (0.9-1.1)
== END 2018-12-22 13:29 | disposition home or self-care (01) ==
LOC: ACC 09:45
PROVIDERS: PCP Internal Medicine Adolescent Medicine; Visit Provider Internal Medicine Adolescent Medicine
DX: Z51.81 Encounter for therapeutic drug level monitoring (principal); Z79.01 Long term (current) use of anticoagulants; I48.91 Unspecified atrial fibrillation
CPT/HCPCS: 85610; 99211; G0463

== ENCOUNTER 2019-01-05 09:52 | Outpatient (CLI) | payer OTHER, SELFPAY ==
[2019-01-05 11:20] LABS: Prothrombin Time 39.9 seconds (9.4-11.8)
[2019-01-05 15:33] LABS: PHA INR Fingerstick 4.1 (0.9-1.1)
== END 2019-01-05 15:36 | disposition home or self-care (01) ==
LOC: ACC 09:53
PROVIDERS: PCP Internal Medicine Adolescent Medicine; Visit Provider Internal Medicine Adolescent Medicine
DX: Z51.81 Encounter for therapeutic drug level monitoring (principal); Z79.01 Long term (current) use of anticoagulants; I48.91 Unspecified atrial fibrillation
CPT/HCPCS: 36415; 85610; 99211; G0463

== ENCOUNTER 2019-01-12 13:45 | Outpatient (CLI) | payer OTHER, SELFPAY ==
[2019-01-12 14:44] LABS: Basophils % 0.3 % (0.1-2.0); Eosinophils # 0.2 K/mm3 (0.0-0.4); Eosinophils % 2.6 % (0.1-12.0); Hematocrit 31.8 % (37.0-47.0); Hemoglobin 9.8 g/dL (12.2-16.2); Lymphocytes # 0.9 K/mm3 (0.7-4.5); Lymphocytes % 14.6 % (10-50); Mean Corpuscular HGB Conc 30.9 g/dL (31.8-35.4); Mean Corpuscular Volume 90.4 fl (81-99); Mean Platelet Volume 8.3 fl (7.4-10.4); Monocytes # 0.5 K/mm3 (0.1-1.0); Monocytes % 7.5 % (1.7-9.3); Neutrophils # 4.5 K/mm3 (1.8-7.8); Platelet Count 206 K/mm3 (142-424); Red Blood Count 3.52 M/mm3 (4.20-5.40); Red Cell Distribution Width 15.3 % (11.5-17.5)
[2019-01-12 14:50] LABS: PHA INR Fingerstick 1.8 (0.9-1.1)
== END 2019-01-12 14:51 | disposition home or self-care (01) ==
PROVIDERS: PCP Internal Medicine Adolescent Medicine; Visit Provider Internal Medicine Adolescent Medicine
DX: T14.8XXA Other injury of unspecified body region, initial encounter (principal); Z51.81 Encounter for therapeutic drug level monitoring; Z79.01 Long term (current) use of anticoagulants
CPT/HCPCS: 36415; 85025; 85610; 99211; G0463

== ENCOUNTER 2019-01-31 09:47 | Outpatient (CLI) | payer OTHER, SELFPAY ==
[2019-01-31 16:18] LABS: PHA INR Fingerstick 1.7 (0.9-1.1)
== END 2019-01-31 16:33 | disposition home or self-care (01) ==
LOC: ACC 09:47
PROVIDERS: PCP Internal Medicine Adolescent Medicine; Visit Provider Internal Medicine Adolescent Medicine
DX: Z51.81 Encounter for therapeutic drug level monitoring (principal); Z79.01 Long term (current) use of anticoagulants; I48.91 Unspecified atrial fibrillation
CPT/HCPCS: 85610; 99211; G0463

== ENCOUNTER 2019-02-26 09:45 | Outpatient (CLI) | payer OTHER, SELFPAY ==
[2019-02-26 14:48] LABS: PHA INR Fingerstick 1.7 (0.9-1.1)
== END 2019-02-26 15:22 | disposition home or self-care (01) ==
LOC: ACC 09:46
PROVIDERS: PCP Internal Medicine Adolescent Medicine; Visit Provider Internal Medicine Adolescent Medicine
DX: Z51.81 Encounter for therapeutic drug level monitoring (principal); Z79.01 Long term (current) use of anticoagulants; I48.91 Unspecified atrial fibrillation
CPT/HCPCS: 85610; 99211; G0463

== ENCOUNTER 2019-03-19 09:41 | Outpatient (CLI) | payer OTHER, SELFPAY ==
[2019-03-19 13:44] LABS: PHA INR Fingerstick 1.6 (0.9-1.1)
== END 2019-03-19 13:45 | disposition home or self-care (01) ==
LOC: ACC 09:42
PROVIDERS: PCP Internal Medicine Adolescent Medicine; Visit Provider Internal Medicine Adolescent Medicine
DX: Z51.81 Encounter for therapeutic drug level monitoring (principal); Z79.01 Long term (current) use of anticoagulants; I48.91 Unspecified atrial fibrillation
CPT/HCPCS: 85610; 99211; G0463

== ENCOUNTER 2019-04-05 13:25 | Outpatient (CLI) | payer OTHER, SELFPAY ==
[2019-04-05 15:47] LABS: PHA INR Fingerstick 1.6 (0.9-1.1)
== END 2019-04-05 15:55 | disposition home or self-care (01) ==
LOC: ACC 13:25
PROVIDERS: PCP Internal Medicine Adolescent Medicine; Visit Provider Internal Medicine Adolescent Medicine
DX: Z51.81 Encounter for therapeutic drug level monitoring (principal); Z79.01 Long term (current) use of anticoagulants; I48.91 Unspecified atrial fibrillation
CPT/HCPCS: 85610; 99211; G0463

== ENCOUNTER 2019-04-25 10:15 | Outpatient (CLI) | payer OTHER, SELFPAY ==
[2019-04-25 11:20] LABS: PHA INR Fingerstick 1.5 (0.9-1.1)
== END 2019-04-25 11:25 | disposition home or self-care (01) ==
LOC: ACC 10:17
PROVIDERS: PCP Internal Medicine Adolescent Medicine; Visit Provider Internal Medicine Adolescent Medicine
DX: Z51.81 Encounter for therapeutic drug level monitoring (principal); Z79.01 Long term (current) use of anticoagulants; I48.91 Unspecified atrial fibrillation
CPT/HCPCS: 85610; 99211; G0463

== ENCOUNTER 2019-06-15 11:33 | Outpatient (CLI) | payer OTHER, SELFPAY ==
[2019-06-15 12:18] LABS: PHA INR Fingerstick 1.5 (0.9-1.1)
== END 2019-06-15 12:20 | disposition home or self-care (01) ==
LOC: ACC 11:35
PROVIDERS: PCP Internal Medicine Adolescent Medicine; Visit Provider Internal Medicine Adolescent Medicine
DX: Z51.81 Encounter for therapeutic drug level monitoring (principal); Z79.01 Long term (current) use of anticoagulants; I48.91 Unspecified atrial fibrillation
CPT/HCPCS: 85610; 99211; G0463

== ENCOUNTER 2019-07-09 10:15 | Outpatient (CLI) | payer OTHER, SELFPAY ==
[2019-07-09 11:32] LABS: PHA INR Fingerstick 1.9 (0.9-1.1)
== END 2019-07-09 11:34 | disposition home or self-care (01) ==
LOC: ACC 10:16
PROVIDERS: PCP Internal Medicine Adolescent Medicine; Visit Provider Internal Medicine Adolescent Medicine
DX: Z51.81 Encounter for therapeutic drug level monitoring (principal); Z79.01 Long term (current) use of anticoagulants; I48.91 Unspecified atrial fibrillation
CPT/HCPCS: 85610; 99211; G0463

== ENCOUNTER 2019-08-06 10:12 | Outpatient (CLI) | payer OTHER, SELFPAY ==
[2019-08-06 13:34] LABS: PHA INR Fingerstick 2.1 (0.9-1.1)
== END 2019-08-06 13:37 | disposition home or self-care (01) ==
LOC: ACC 10:13
PROVIDERS: PCP Internal Medicine Adolescent Medicine; Visit Provider Internal Medicine Adolescent Medicine
DX: Z51.81 Encounter for therapeutic drug level monitoring (principal); Z79.01 Long term (current) use of anticoagulants; I48.91 Unspecified atrial fibrillation
CPT/HCPCS: 85610; 99211; G0463

== ENCOUNTER 2019-08-12 02:44 | Emergency (ER) | payer OTHER, SELFPAY ==
[2019-08-12 02:57] VITALS: BP 150/72; PULSE 83; RESP 18; TEMP 36.8; O2SAT 99; BMI 29.8
--- NOTE | 2019-08-12 03:05 | [facility].EDGENADL ---
ED Disposition Clinical Impression: Food impaction of esophagus Qualifiers: Encounter type: initial encounter Qualified Code(s): T18.128A - Food in esophagus causing other injury, initial encounter Disposition: Home, Self-Care Condition on Discharge: Good Additional Instructions: Cut meat in small pieces before eating and chew well. If difficulty with swallowing persists, follow-up with Dr. Godwin for endoscopy. Return to the emergency room if food gets stuck and you are unable to swallow saliva or liquids. Referrals: Nagi Shelton MD [Primary Care Provider] - Mehrdad Godwin MD [Staff Physician] - - Critical Care Critical Care Time: No Attestation: On 08/12/19, the high probability of a clinically significant, sudden or life threatening deterioration of the following system(s) required my full and direct attention, intervention and personal management. The time I documented below is in addition to time spent performing reported procedures but includes the following listed in this critical care notation. Medical Decision Making - [place] Inquiry Pt receiving controlled substance: No Vital Signs: 08/12/19 02:57 Temperature 98.3 F Temperature Source Oral Pulse Rate [Right] 83 Respiratory Rate 18 Blood Pressure [Right Arm] 150/72 H Blood Pressure Mean [Right Arm] 98 Blood Pressure Source [Right Arm] Automatic Cuff Blood Pressure Position [Right Arm] Sitting 02 Sat by Pulse Oximetry 99 Oxygen Delivery Method Nasal Cannula Oxygen Flow Rate (LPM) 3 - Reevaluation(s) Time: 03:16 Reevaluation #1: still able to swallow General Adult HPI - General Stated complaint: Choked on food earlier,difficulty swallowing Time Seen by Provider: 08/12/19 03:00 - History of Present Illness HPI narrative: The patient states that about 6 PM she was eating a chili dog when she felt like some of the hot dog got stuck. She was able to get some of it up but felt like there was still some stuck. Since then she has not been able to keep down any liquids. She tried drinking water and tea and everything came back up. She used her inhaler and a nebulizer treatment before bed, symptoms still did not resolve. However now that she is arrived in the emergency department she was able to drink a glass of water prior to my evaluation and during my evaluation drank a second glass of water without regurgitation. She says she feels like it is going down. There is still a sensation of fullness in her throat but it feels much better. She denies having previous similar symptoms. Has never had an impacted food bolus in the past. She does not wear dentures. - Related Data Home Medications Medication Instructions Recorded Confirmed Warfarin Sodium 2.5 mg PO SUTUTHSA 02/24/18 04/17/18 Warfarin Sodium 5 mg PO MOWEFR 02/24/18 04/17/18 Metoprolol Succinate [Toprol XL 25 mg PO DAILY 04/17/18 04/17/18 25mg tablet] Previous Rx's Medication Instructions Recorded Albuterol Sulfate [Albuterol 2.5 mg IH Q3HP PRN #90 neb 03/29/19 Sulfate 2.5mg/0.5ml Neb] methylPREDNISolone [Medrol 4mg 4 mg PO DIRECTED #21 tab 03/29/19 tab] Allergies Allergy/AdvReac Type Severity Reaction Status Date / Time No Known Allergies Allergy Verified 04/17/18 08:56 [facility] History - Hepatitis A Screen Attestation statement:: This patient has been screened for Hepatitis A risk factors. I have reviewed the patient's past medical history: Yes 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: Denies:: Cancer, Diabetes Mellitus Type 1, Diabetes Mellitus Type 2, MRSA Other Surgeries: Yes: Tubal Ligation Amputation: No Fractures: No - Social History Smoking Status: Former smoker Tobacco Type: cigarettes # Packs/Day (cigarettes): 1 Alcohol Intake: never Alcohol Intake Frequency:: 0-2 drinks per day Occupational Status: retired Housing: house Household Members: children Family Hx:: Non-contributory ROS Obtained: Yes Systems reviewed as appropriate & no blessing
--- NOTE | 2019-08-12 03:16 | PC.NURSE ---
Pt able to drink 2 8oz glasses of water and keep it down. Pt able to communicate clearly after drinking.
[2019-08-12 03:20] VITALS: BP 148/72; PULSE 80; RESP 18; TEMP 36.8; O2SAT 98
--- NOTE | 2019-08-12 03:22 | PC.NURSE ---
Pt remained on her O2 concentrator while here
== END 2019-08-12 03:22 | disposition home or self-care (01) ==
PROVIDERS: Emergency Provider Emergency Medicine; PCP Internal Medicine Adolescent Medicine
DX: T18.128A Food in esophagus causing other injury, initial encounter (principal); Z87.891 Personal history of nicotine dependence
CPT/HCPCS: 99281

== ENCOUNTER 2019-09-10 10:19 | Outpatient (CLI) | payer OTHER, SELFPAY ==
[2019-09-10 11:30] LABS: PHA INR Fingerstick 1.7 (0.9-1.1)
== END 2019-09-10 11:32 | disposition home or self-care (01) ==
PROVIDERS: PCP Internal Medicine Adolescent Medicine; Visit Provider Internal Medicine Adolescent Medicine
DX: Z51.81 Encounter for therapeutic drug level monitoring (principal); Z79.01 Long term (current) use of anticoagulants; I48.91 Unspecified atrial fibrillation
CPT/HCPCS: 85610; 99211; G0463

== ENCOUNTER 2019-10-22 10:14 | Outpatient (CLI) | payer OTHER, SELFPAY ==
[2019-10-22 11:29] LABS: PHA INR Fingerstick 1.8 (0.9-1.1)
== END 2019-10-22 12:09 | disposition home or self-care (01) ==
LOC: ACC 10:17
PROVIDERS: PCP Internal Medicine Adolescent Medicine; Visit Provider Internal Medicine Adolescent Medicine
DX: Z51.81 Encounter for therapeutic drug level monitoring (principal); Z79.01 Long term (current) use of anticoagulants
CPT/HCPCS: 85610; 99211; G0463

== ENCOUNTER 2019-11-12 10:22 | Outpatient (CLI) | payer OTHER, SELFPAY ==
[2019-11-12 15:36] LABS: PHA INR Fingerstick 1.9 (0.9-1.1)
== END 2019-11-12 15:40 | disposition home or self-care (01) ==
LOC: ACC 10:24
PROVIDERS: PCP Internal Medicine Adolescent Medicine; Visit Provider Internal Medicine Adolescent Medicine
DX: Z79.01 Long term (current) use of anticoagulants (principal)
CPT/HCPCS: 85610; 99211; G0463

== ENCOUNTER 2019-12-03 10:18 | Outpatient (CLI) | payer OTHER, SELFPAY ==
[2019-12-03 13:06] LABS: PHA INR Fingerstick 2.1 (0.9-1.1)
== END 2019-12-03 13:12 | disposition home or self-care (01) ==
LOC: ACC 10:19
PROVIDERS: PCP Internal Medicine Adolescent Medicine; Visit Provider Internal Medicine Adolescent Medicine
DX: Z51.81 Encounter for therapeutic drug level monitoring (principal); Z79.01 Long term (current) use of anticoagulants; I48.91 Unspecified atrial fibrillation
CPT/HCPCS: 85610; 99211; G0463

== ENCOUNTER 2020-01-09 10:16 | Outpatient (CLI) | payer OTHER, SELFPAY ==
[2020-01-09 15:29] LABS: PHA INR Fingerstick 1.8 (0.9-1.1)
== END 2020-01-09 15:31 | disposition home or self-care (01) ==
LOC: ACC 10:17
PROVIDERS: PCP Internal Medicine Adolescent Medicine; Visit Provider Internal Medicine Adolescent Medicine
DX: Z51.81 Encounter for therapeutic drug level monitoring (principal); Z79.01 Long term (current) use of anticoagulants; I48.91 Unspecified atrial fibrillation
CPT/HCPCS: 85610; 99211; G0463

== ENCOUNTER 2020-01-30 09:55 | Outpatient (CLI) | payer OTHER, SELFPAY ==
[2020-01-30 15:31] LABS: PHA INR Fingerstick 2.6 (0.9-1.1)
== END 2020-01-30 15:34 | disposition home or self-care (01) ==
LOC: ACC 09:56
PROVIDERS: PCP Internal Medicine Adolescent Medicine; Visit Provider Internal Medicine Adolescent Medicine
DX: Z51.81 Encounter for therapeutic drug level monitoring (principal); Z79.01 Long term (current) use of anticoagulants
CPT/HCPCS: 85610; 99211; G0463

== ENCOUNTER 2020-02-27 10:46 | Outpatient (CLI) | payer OTHER, SELFPAY ==
[2020-02-27 12:27] LABS: PHA INR Fingerstick 2.6 (0.9-1.1)
== END 2020-02-27 13:22 | disposition home or self-care (01) ==
LOC: ACC 10:47
PROVIDERS: PCP Internal Medicine Adolescent Medicine; Visit Provider Internal Medicine Adolescent Medicine
DX: Z51.81 Encounter for therapeutic drug level monitoring (principal); Z79.01 Long term (current) use of anticoagulants
CPT/HCPCS: 85610; 99211; G0463

== ENCOUNTER 2020-04-25 08:29 | Outpatient (CLI) | payer OTHER, SELFPAY ==
[2020-04-25 12:33] LABS: PHA INR Fingerstick 2.6 (0.9-1.1)
== END 2020-04-25 12:38 | disposition home or self-care (01) ==
LOC: ACC 08:31
PROVIDERS: PCP Internal Medicine Adolescent Medicine; Visit Provider Internal Medicine Adolescent Medicine
DX: Z51.81 Encounter for therapeutic drug level monitoring (principal); Z79.01 Long term (current) use of anticoagulants; I48.91 Unspecified atrial fibrillation
CPT/HCPCS: 85610; 99211; G0463

== ENCOUNTER 2020-06-06 08:56 | Outpatient (CLI) | payer OTHER, SELFPAY ==
[2020-06-06 11:33] LABS: PHA INR Fingerstick 2.4 (0.9-1.1)
== END 2020-06-06 11:55 | disposition home or self-care (01) ==
LOC: ACC 08:56
PROVIDERS: PCP Internal Medicine Adolescent Medicine; Visit Provider Internal Medicine Adolescent Medicine
DX: Z51.81 Encounter for therapeutic drug level monitoring (principal); Z79.01 Long term (current) use of anticoagulants; I48.91 Unspecified atrial fibrillation
CPT/HCPCS: 85610; 99211; G0463

== ENCOUNTER 2020-07-18 09:49 | Outpatient (CLI) | payer OTHER, SELFPAY ==
[2020-07-18 10:23] LABS: PHA INR Fingerstick 1.8 (0.9-1.1)
== END 2020-07-18 10:25 | disposition home or self-care (01) ==
LOC: ACC 09:49
PROVIDERS: PCP Internal Medicine Adolescent Medicine; Visit Provider Internal Medicine Adolescent Medicine
DX: Z51.81 Encounter for therapeutic drug level monitoring (principal); Z79.01 Long term (current) use of anticoagulants; I48.91 Unspecified atrial fibrillation
CPT/HCPCS: 85610; 99211; G0463

== ENCOUNTER 2020-08-29 09:51 | Outpatient (CLI) | payer OTHER, SELFPAY ==
[2020-08-29 15:11] LABS: PHA INR Fingerstick 2.5 (0.9-1.1)
== END 2020-08-29 15:12 | disposition home or self-care (01) ==
LOC: ACC 09:52
PROVIDERS: PCP Internal Medicine Adolescent Medicine; Visit Provider Internal Medicine Adolescent Medicine
DX: Z51.81 Encounter for therapeutic drug level monitoring (principal); Z79.01 Long term (current) use of anticoagulants; I48.91 Unspecified atrial fibrillation
CPT/HCPCS: 85610; 99211; G0463

== ENCOUNTER 2020-10-10 09:47 | Outpatient (CLI) | payer OTHER, SELFPAY ==
[2020-10-10 13:55] LABS: PHA INR Fingerstick 2.3 (0.9-1.1)
== END 2020-10-10 14:06 | disposition home or self-care (01) ==
LOC: ACC 09:48
PROVIDERS: PCP Internal Medicine Adolescent Medicine; Visit Provider Internal Medicine Adolescent Medicine
DX: Z51.81 Encounter for therapeutic drug level monitoring (principal); Z79.01 Long term (current) use of anticoagulants; I48.91 Unspecified atrial fibrillation
CPT/HCPCS: 85610; 99211; G0463

== ENCOUNTER 2020-11-21 10:02 | Outpatient (CLI) | payer OTHER, SELFPAY ==
[2020-11-21 15:10] LABS: PHA INR Fingerstick 1.9 (0.9-1.1)
== END 2020-11-21 15:16 | disposition home or self-care (01) ==
LOC: ACC 10:03
PROVIDERS: PCP Internal Medicine Adolescent Medicine; Visit Provider Internal Medicine Adolescent Medicine
DX: Z51.81 Encounter for therapeutic drug level monitoring (principal); Z79.01 Long term (current) use of anticoagulants
CPT/HCPCS: 85610; 99211; G0463

== ENCOUNTER → 2020-11-25 10:31 | Outpatient (CLI) | payer OTHER, SELFPAY ==
[2020-11-25 11:18] LABS: Basophils % 0.6 % (0.1-2.0); Eosinophils # 0.3 K/mm3 (0.0-0.4); Eosinophils % 4.4 % (0.1-12.0); Hematocrit 33.4 % (37.0-47.0); Hemoglobin 10.8 g/dL (12.2-16.2); Lymphocytes # 1.3 K/mm3 (0.7-4.5); Lymphocytes % 17.2 % (10-50); Mean Corpuscular HGB Conc 32.4 g/dL (31.8-35.4); Mean Corpuscular Hemoglobin 29.1 pg (27.0-31.2); Mean Corpuscular Volume 89.6 fl (81-99); Mean Platelet Volume 9.6 fl (7.4-10.4); Monocytes # 0.5 K/mm3 (0.1-1.0); Monocytes % 6.6 % (1.7-9.3); Neutrophils # 5.3 K/mm3 (1.8-7.8); Neutrophils % 71.3 % (37.0-80.0); Platelet Count 122 K/mm3 (142-424); Red Blood Count 3.73 M/mm3 (4.20-5.40); Red Cell Distribution Width 16.6 % (11.5-17.5); White Blood Count 7.4 K/mm3 (4.8-10.8)
[2020-11-25 11:31] LABS: Hemoglobin A1C 5.4 % (4.0-6.0)
[2020-11-25 11:44] LABS: Alanine Aminotransferase 33 U/L (12-78); Albumin Level 4.2 g/dl (3.5-5.0); Albumin/Globulin Ratio 1.2 (1.1-1.8); Alkaline Phosphatase 161 U/L (38-126); Anion Gap 14.9 mEq/L (5-15); Aspartate Amino Transferase 35 U/L (14-36); Bilirubin,Total 0.5 mg/dl (0.2-1.3); Blood Urea Nitrogen 8 mg/dl (7-17); Calcium 9.3 mg/dl (8.4-10.2); Carbon Dioxide 22 mmol/L (22.0-30.0); Chloride 102 mmol/L (98-107); Chol/HDL Ratio 3.6 (1-3.5); Cholesterol 171 mg/dl (140-200); Estimated Glomerular Filt Rate 72 ml/min (>60); GFR (African American) 87 ML/MIN (>60); Globulin 3.5 g/dL (1.3-3.2); Glucose 103 mg/dl (74-100); HDL Cholesterol 48 mg/dl (40-60); Potassium 4.9 mmoL/L (3.5-5.1); Sodium 134 mmol/L (136-145); Total Protein,Serum 7.7 g/dl (6.3-8.2); Triglycerides 93 mg/dl (30-150); VLDL Cholesterol 19 mg/dL (0-40)
[2020-11-25 11:55] LABS: Direct LDL Cholesterol 78.88 mg/dL (100-129)
[2020-11-25 12:15] LABS: Thyroid Stimulating Hormone 0.88 uIU/mL (0.465-4.68)
== END ==
PROVIDERS: Visit Provider Internal Medicine Adolescent Medicine
DX: I10 Essential (primary) hypertension (principal); Z79.899 Other long term (current) drug therapy
CPT/HCPCS: 36415; 80053; 80061; 83036; 84443; 85025

== ENCOUNTER 2020-12-26 09:49 | Outpatient (CLI) | payer OTHER, SELFPAY ==
[2020-12-26 10:24] LABS: PHA INR Fingerstick 2.6 (0.9-1.1)
== END 2020-12-26 10:27 | disposition home or self-care (01) ==
LOC: ACC 09:50
PROVIDERS: PCP Internal Medicine Adolescent Medicine; Visit Provider Internal Medicine Adolescent Medicine
DX: Z51.81 Encounter for therapeutic drug level monitoring (principal); Z79.01 Long term (current) use of anticoagulants; I48.91 Unspecified atrial fibrillation
CPT/HCPCS: 85610; 99211; G0463

== ENCOUNTER 2021-02-06 09:53 | Outpatient (CLI) | payer OTHER, SELFPAY ==
[2021-02-06 13:48] LABS: PHA INR Fingerstick 1.6 (0.9-1.1)
== END 2021-02-06 14:00 | disposition home or self-care (01) ==
LOC: ACC 09:54
PROVIDERS: PCP Internal Medicine Adolescent Medicine; Visit Provider Internal Medicine Adolescent Medicine
DX: Z51.81 Encounter for therapeutic drug level monitoring (principal); Z79.01 Long term (current) use of anticoagulants; I48.91 Unspecified atrial fibrillation
CPT/HCPCS: 85610; 99211; G0463

== ENCOUNTER → 2021-03-12 08:52 | Outpatient (CLI) | payer OTHER, SELFPAY ==
[2021-03-12 14:29] LABS: PHA INR Fingerstick 1.9 (0.9-1.1)
== END ==
PROVIDERS: PCP Internal Medicine Adolescent Medicine; Visit Provider Internal Medicine Adolescent Medicine
DX: Z51.81 Encounter for therapeutic drug level monitoring (principal); Z79.01 Long term (current) use of anticoagulants; I48.91 Unspecified atrial fibrillation
CPT/HCPCS: 85610

== ENCOUNTER 2021-04-29 08:55 | Outpatient (CLI) | payer MEDICARE, OTHER, SELFPAY ==
[2021-04-29 10:45] LABS: PHA INR Fingerstick 3.1 (0.9-1.1)
== END 2021-04-29 10:47 | disposition home or self-care (01) ==
LOC: ACC 08:57
PROVIDERS: PCP Internal Medicine Adolescent Medicine; Visit Provider Internal Medicine Adolescent Medicine
DX: Z51.81 Encounter for therapeutic drug level monitoring (principal); Z79.01 Long term (current) use of anticoagulants; I48.91 Unspecified atrial fibrillation
CPT/HCPCS: 85610; 99211; G0463

== ENCOUNTER 2021-05-27 08:55 | Outpatient (CLI) | payer MEDICARE, OTHER, SELFPAY ==
[2021-05-27 14:03] LABS: PHA INR Fingerstick 1.7 (0.9-1.1)
== END 2021-05-27 14:05 | disposition home or self-care (01) ==
PROVIDERS: PCP Internal Medicine Adolescent Medicine; Visit Provider Internal Medicine Adolescent Medicine
DX: Z51.81 Encounter for therapeutic drug level monitoring (principal); Z79.01 Long term (current) use of anticoagulants; I48.91 Unspecified atrial fibrillation
CPT/HCPCS: 85610; 99211; G0463

== ENCOUNTER 2021-06-18 08:45 | Outpatient (CLI) | payer MEDICARE, OTHER, SELFPAY ==
[2021-06-18 13:38] LABS: PHA INR Fingerstick 2.2 (0.9-1.1)
== END 2021-06-18 14:27 | disposition home or self-care (01) ==
LOC: ACC 08:46
PROVIDERS: PCP Internal Medicine Adolescent Medicine; Visit Provider Internal Medicine Adolescent Medicine
DX: Z51.81 Encounter for therapeutic drug level monitoring (principal); Z79.01 Long term (current) use of anticoagulants; I48.91 Unspecified atrial fibrillation
CPT/HCPCS: 85610; 99211; G0463

== ENCOUNTER 2021-07-30 08:43 | Outpatient (CLI) | payer MEDICARE, OTHER, SELFPAY ==
[2021-07-30 15:47] LABS: PHA INR Fingerstick 1.6 (0.9-1.1)
== END 2021-07-30 15:58 | disposition home or self-care (01) ==
LOC: ACC 08:45
PROVIDERS: PCP Internal Medicine Adolescent Medicine; Visit Provider Internal Medicine Adolescent Medicine
DX: Z51.81 Encounter for therapeutic drug level monitoring (principal); Z79.01 Long term (current) use of anticoagulants
CPT/HCPCS: 85610; 99211; G0463

== ENCOUNTER 2021-08-26 09:20 | Outpatient (CLI) | payer MEDICARE, OTHER, SELFPAY ==
[2021-08-26 12:55] LABS: PHA INR Fingerstick 1.6 (0.9-1.1)
== END 2021-08-26 13:08 | disposition home or self-care (01) ==
LOC: ACC 09:21
PROVIDERS: PCP Internal Medicine Adolescent Medicine; Visit Provider Internal Medicine Adolescent Medicine
DX: Z51.81 Encounter for therapeutic drug level monitoring (principal); Z79.01 Long term (current) use of anticoagulants; I48.91 Unspecified atrial fibrillation
CPT/HCPCS: 85610; 99211; G0463

== ENCOUNTER 2021-09-23 09:08 | Outpatient (CLI) | payer MEDICARE, OTHER, SELFPAY ==
[2021-09-23 11:23] LABS: PHA INR Fingerstick 2.3 (0.9-1.1)
== END 2021-09-23 11:37 | disposition home or self-care (01) ==
LOC: ACC 09:10
PROVIDERS: PCP Internal Medicine Adolescent Medicine; Visit Provider Internal Medicine Adolescent Medicine
DX: Z51.81 Encounter for therapeutic drug level monitoring (principal); Z79.01 Long term (current) use of anticoagulants; I48.91 Unspecified atrial fibrillation
CPT/HCPCS: 85610; 99211; G0463

== ENCOUNTER 2021-10-28 09:19 | Outpatient (CLI) | payer MEDICARE, OTHER, SELFPAY ==
[2021-10-28 11:06] LABS: PHA INR Fingerstick 2.5 (0.9-1.1)
== END 2021-10-28 11:07 ==
LOC: ACC 09:20
PROVIDERS: PCP Internal Medicine Adolescent Medicine; Visit Provider Internal Medicine Adolescent Medicine
DX: Z51.81 Encounter for therapeutic drug level monitoring (principal); Z79.01 Long term (current) use of anticoagulants; I48.91 Unspecified atrial fibrillation
CPT/HCPCS: 85610; 99211; G0463

== ENCOUNTER 2021-12-09 09:16 | Outpatient (CLI) | payer MEDICARE, OTHER, SELFPAY ==
[2021-12-09 13:16] LABS: PHA INR Fingerstick 2.2 (0.9-1.1)
== END 2021-12-09 14:09 ==
LOC: ACC 09:18
PROVIDERS: PCP Internal Medicine Adolescent Medicine; Visit Provider Internal Medicine Adolescent Medicine
DX: Z51.81 Encounter for therapeutic drug level monitoring (principal); Z79.01 Long term (current) use of anticoagulants
CPT/HCPCS: 85610; 99211; G0463

== ENCOUNTER 2022-01-06 | Emergency (ER) | payer MEDICARE, OTHER, SELFPAY ==
[2022-01-06 00:13] VITALS: BP 179/82; PULSE 78; RESP 18; TEMP 36.7; O2SAT 98; BMI 34.7
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
[2022-01-06 00:26] LABS: Microscopic, Urine URINE MICROSCOPIC (MICROSCOPIC)
[2022-01-06 00:29] LABS: Basophils # 0.1 K/mm3 (0-0.2); Basophils % 0.9 % (0.1-2.0); Eosinophils # 0.2 K/mm3 (0.0-0.4); Hematocrit 32.3 % (37.0-47.0); Hemoglobin 10.5 g/dL (12.2-16.2); Lymphocytes % 17.4 % (10-50); Mean Corpuscular HGB Conc 32.5 g/dL (31.8-35.4); Mean Corpuscular Hemoglobin 27.1 pg (27.0-31.2); Mean Corpuscular Volume 83.3 fl (81-99); Mean Platelet Volume 11.8 fl (7.4-10.4); Monocytes # 0.4 K/mm3 (0.1-1.0); Monocytes % 6.5 % (1.7-9.3); Neutrophils % 71.2 % (37.0-80.0); Red Blood Count 3.88 M/mm3 (4.20-5.40); White Blood Count 5.6 K/mm3 (4.8-10.8)
[2022-01-06 00:31] LABS: Appearance,Urine CLEAR (Clear); Bilirubin,Urine Negative (Negative); Blood, Urine 1+ (Negative); Color,Urine YELLOW (Yellow); Glucose,Urine (UA) Negative (Negative); Ketones,Urine Negative (Negative); Leukocyte Esterase,Urine Negative (Negative); Nitrate,Urine Negative (Negative); Protein,Urine Negative (Negative); Specific Gravity, Urine 1.025 (1.005-1.030); Urobilinogen,Urine 0.2 EU/dl (0.2)
[2022-01-06 00:36] LABS: Chloride 101 mmol/L (98-107); Potassium 4.3 mmoL/L (3.5-5.1); Sodium 137 mmol/L (136-145)
[2022-01-06 00:38] LABS: INR 2.83 (0.9-1.1); Prothrombin Time 28.8 seconds (10.1-12.5)
[2022-01-06 00:39] LABS: Alanine Aminotransferase 28 U/L (12-78); Albumin Level 4.2 g/dl (3.5-5.0); Albumin/Globulin Ratio 1.3 (1.1-1.8); Alkaline Phosphatase 155 U/L (38-126); Anion Gap 13.3 mEq/L (5-15); Aspartate Amino Transferase 36 U/L (14-36); Bilirubin,Total 0.4 mg/dl (0.2-1.3); Blood Urea Nitrogen 17 mg/dl (7-17); Carbon Dioxide 27 mmol/L (22.0-30.0); Creatinine Clearance Estimated 86 mL/min (50-200); Estimated Glomerular Filt Rate 56 ml/min (>60); GFR (African American) 67 ML/MIN (>60); Globulin 3.3 g/dL (1.3-3.2); Total Protein,Serum 7.5 g/dl (6.3-8.2)
[2022-01-06 00:40] LABS: Calcium 9.5 mg/dl (8.4-10.2); Glucose 101 mg/dl (74-100)
[2022-01-06 00:44] LABS: Platelet Count 41 K/mm3 (142-424)
--- NOTE | 2022-01-06 00:45 | PC.NURSE ---
notified graciela of critical plts count 41
[2022-01-06 00:54] LABS: Bacteria,Urine 1+ /lpf; WBC,Urine Occasional #/hpf (0-3)
[2022-01-06 01:08] LABS: Erythrocyte Sedimentation Rate 81 mm/hr (0-30)
--- NOTE | 2022-01-06 01:36 | HMH.EDBACK ---
Discharge Plan Disposition Patient Disposition: Home, Self-Care Prescriptions Prescriptions: No Action lisinopril 5 mg tablet 5 mg PO DAILY Label Comments: TAKE 1 TABLET BY MOUTH ONCE DAILY FOR 90 DAYS Anoro Ellipta 62.5-25 mcg/actuation blister with device 1 inh INHALATION DAILY Label Comments: INHALE 1 PUFF BY MOUTH ONCE DAILY warfarin 5 MG tablet 5 mg PO MOWEFR Rx Instructions: Every day except tuesday and tuesday warfarin 5 MG tablet 2.5 mg PO SUTUTHSA Rx Instructions: Mondays and Fridays metoprolol succinate 25 MG tablet extended release 24 hr 25 mg PO DAILY Referrals Follow up/Referrals: Boo Carpenter MD [Primary Care Provider] - See instructions Clinical Impressions Clinical Impression: Lymphadenopathy, Thrombocytopenia, Fall, Lumbar contusion Instructions Patient Instructions: DI for Low Back Pain Discharge ED Provider: Cole Ramos Back Pain HPI General Stated Complaint: Severe Back Pain Time Seen by Provider: 01/06/22 01:36 Mode of Arrival: Ambulatory Source of Information: Patient, Spouse and Medical Record Limitations: No Limitations Description of Symptoms (Recalled from ER Triage Doc. by RN): Patient states that this morning she was bent over looking in her kitchen cabinet when she twisted and developed severe back pain. States that the pain radiates down her whole right side. History of Present Illness HPI Narrative: acute fall with rt sided back pain - hx of coumadin use - no loc and no head pain Complaint: back pain, back injury and fall Onset (ago): hour(s) Duration: intermittent Similar Symptoms Previously: No Location: lumbar spine, thoracic spine and right flank Severity: moderate Context: fall Associated symptoms: denies other symptoms Related Data Home Medications Medication Instructions Recorded Confirmed warfarin 5 mg tablet 2.5 mg PO SUTUTHSA Blood thinner 02/24/18 01/06/22 warfarin 5 mg tablet 5 mg PO MOWEFR Blood thinner 02/24/18 01/06/22 metoprolol succinate 25 mg 25 mg PO DAILY Hypertension 04/17/18 01/06/22 tablet,extended release 24 hr lisinopril 5 mg tablet 5 mg PO DAILY htn 01/06/22 01/06/22 umeclidinium 62.5 mcg-vilanterol 1 inh inhalation DAILY COPD 01/06/22 01/06/22 25 mcg/actuation powdr for inhalation (Anoro Ellipta) Allergies Allergy/AdvReac Type Severity Reaction Status Date / Time No Known Allergies Allergy Verified 04/17/18 08:56 PFSH PFSH Social History Smoking Status: Former smoker second hand exposure: No alcohol intake: never current occupational status: disabled Travel in the last 8 weeks: None household members: children housing: house current occupational exposures/hazards: No caffeine: Yes ROS Obtained: Yes All systems reviewed & no additional complaints except as documented Physical Exam General General appearance: alert Head Head exam: normocephalic Eye Eye exam: Present PERRL and EOMI ENT ENT exam: Present mucous membranes moist Neck Neck exam: Present trachea midline Respiratory Respiratory exam: Absent respiratory distress Cardiovascular Cardiovascular exam: Present regular rate Abdominal Exam Abdominal exam: Present soft; Absent tenderness Extremities Exam Extremities exam: Present full ROM Back Exam Back exam: Absent CVA tenderness (R) Neurological Exam Neurological exam: Present alert, oriented X3 and CN II-XII intact Psychiatric Psychiatric exam: Present normal affect Skin Skin exam: Present other (bruising ); Absent rash Medical Decision Making Medical Records Medical records reviewed: Yes I reviewed the patient's medical records. [place] Inquiry Pt receiving controlled substance: No Vital Signs: 01/06/22 00:13 Temperature 98.1 F Temperature Source Oral Pulse Rate [Apical] 78 Respiratory Rate 18 Blood Pressure [Right Arm] 179/82 H Blood Pressure Mean [Right Arm] 114 Blood Pressure Source [Right Arm] Au
[2022-01-06 02:26] VITALS: BP 143/79; PULSE 72; RESP 16; TEMP 36.8; O2SAT 98
[2022-01-07 10:11] LABS: Peripheral Smear Review Scanned Results
== END 2022-01-06 02:37 | disposition home or self-care (01) ==
PROVIDERS: Emergency Provider Emergency Medicine; PCP Internal Medicine Adolescent Medicine
DX: S30.0XXA Contusion of lower back and pelvis, initial encounter (principal); D69.6 Thrombocytopenia, unspecified; R59.1 Generalized enlarged lymph nodes; W19.XXXA Unspecified fall, initial encounter; Z79.01 Long term (current) use of anticoagulants; Z79.899 Other long term (current) drug therapy; I11.0 Hypertensive heart disease with heart failure; J44.9 Chronic obstructive pulmonary disease, unspecified; I48.91 Unspecified atrial fibrillation; I50.30 Unspecified diastolic (congestive) heart failure; I25.2 Old myocardial infarction
CPT/HCPCS: 72128; 80053; 81001; 85025; 85610; 85651; 99285; Q9967

== ENCOUNTER → 2022-01-14 11:45 | Outpatient (CLI) | payer MEDICARE, OTHER, SELFPAY ==
[2022-01-14 12:50] LABS: Basophils # 0.1 K/mm3 (0-0.2); Basophils % 0.9 % (0.1-2.0); Eosinophils # 0.3 K/mm3 (0.0-0.4); Eosinophils % 4.4 % (0.1-12.0); Hematocrit 31.7 % (37.0-47.0); Hemoglobin 10.2 g/dL (12.2-16.2); Lymphocytes # 1.1 K/mm3 (0.7-4.5); Lymphocytes % 16.6 % (10-50); Mean Corpuscular HGB Conc 32.3 g/dL (31.8-35.4); Mean Corpuscular Hemoglobin 27.2 pg (27.0-31.2); Mean Corpuscular Volume 84.1 fl (81-99); Mean Platelet Volume 12.6 fl (7.4-10.4); Monocytes # 0.4 K/mm3 (0.1-1.0); Monocytes % 6.6 % (1.7-9.3); Neutrophils # 4.5 K/mm3 (1.8-7.8); Neutrophils % 71.6 % (37.0-80.0); Platelet Count 74 K/mm3 (142-424); Red Blood Count 3.77 M/mm3 (4.20-5.40); Red Cell Distribution Width 18.4 % (11.5-17.5); White Blood Count 6.3 K/mm3 (4.8-10.8)
[2022-01-14 13:52] LABS: Activated Partial Thrombo Time 32.8 seconds (22.8-30.6); INR 1.62 (0.9-1.1)
[2022-01-16 11:50] LABS: Peripheral Smear Review Scanned Result
== END ==
PROVIDERS: PCP Nurse Practitioner Family; Visit Provider Nurse Practitioner Family
DX: Z51.81 Encounter for therapeutic drug level monitoring (principal); Z79.01 Long term (current) use of anticoagulants; I48.20 Chronic atrial fibrillation, unspecified; D69.6 Thrombocytopenia, unspecified
CPT/HCPCS: 36415; 85025; 85610; 85730

== ENCOUNTER 2022-01-19 09:29 | Outpatient (CLI) | payer MEDICARE, OTHER, SELFPAY ==
[2022-01-19 11:22] LABS: PHA INR Fingerstick 3.3 (0.9-1.1)
== END 2022-01-19 11:23 ==
LOC: ACC 09:29
PROVIDERS: PCP Internal Medicine Adolescent Medicine; Visit Provider Internal Medicine Adolescent Medicine
DX: Z51.81 Encounter for therapeutic drug level monitoring (principal); Z79.01 Long term (current) use of anticoagulants
CPT/HCPCS: 85610; 99211; G0463

== ENCOUNTER 2022-01-29 09:55 | Outpatient (CLI) | payer MEDICARE, OTHER, SELFPAY ==
[2022-01-29 14:13] LABS: PHA INR Fingerstick 1.6 (0.9-1.1)
--- NOTE | 2022-02-04 08:45 | CT_ITS ---
FINAL REPORT CLINICAL HISTORY: MEDIASTINAL LYMPHADENOPATHY COMPARISON: January 2018; December 2021 FINDINGS: Axial images were obtained from the lung apex to the mid abdomen by computed tomography after the administration of IV contrast. Coronal reformatted images were obtained. This study was performed with techniques to keep radiation doses as low as reasonably achievable, (ALARA). Individualized dose reduction techniques using automated exposure control or adjustment of mA and/or kV according to the patient's size were employed. There is no axillary adenopathy. Multiple small and borderline size mediastinal lymph nodes have improved and were likely reactive. Heart size is normal. There is no pericardial or pleural effusion. Images through the upper abdomen demonstrate mild gallbladder wall thickening with questionable stones in the neck. There is marked improvement in multinodular opacities that were likely inflammatory. There is mild persistent scarring. IMPRESSION: Improved adenopathy was likely reactive. Mild gallbladder wall thickening with questionable gallstones in the neck of the gallbladder. If indicated, ultrasound could further evaluate. Reviewed, Interpreted and Dictated by Mehrdad Pires III, MD Transcribed by King Garcia Authenticated and . [facility]
== END 2022-01-29 15:27 ==
LOC: ACC 09:55
PROVIDERS: PCP Internal Medicine Adolescent Medicine; Visit Provider Internal Medicine Adolescent Medicine
DX: Z51.81 Encounter for therapeutic drug level monitoring (principal); Z79.01 Long term (current) use of anticoagulants
CPT/HCPCS: 71260; 85610; 99211; G0463; Q9967

== ENCOUNTER → 2022-02-04 08:40 | Outpatient (CLI) | payer MEDICARE, OTHER, SELFPAY | PROVIDERS: PCP Internal Medicine Adolescent Medicine; Visit Provider Internal Medicine Adolescent Medicine | DX: R59.0 Localized enlarged lymph nodes (principal) ==

== ENCOUNTER 2022-02-18 10:19 | Outpatient (CLI) | payer MEDICARE, OTHER, SELFPAY ==
[2022-02-18 15:35] LABS: PHA INR Fingerstick 2.8 (0.9-1.1)
== END 2022-02-18 15:39 ==
LOC: ACC 10:21
PROVIDERS: PCP Internal Medicine Adolescent Medicine; Visit Provider Internal Medicine Adolescent Medicine
DX: Z51.81 Encounter for therapeutic drug level monitoring (principal); Z79.01 Long term (current) use of anticoagulants; I48.91 Unspecified atrial fibrillation
CPT/HCPCS: 85610; 99211; G0463

== ENCOUNTER → 2022-03-11 10:35 | Outpatient (CLI) | payer MEDICARE, OTHER, SELFPAY ==
[2022-03-11 11:38] LABS: Basophils # 0.1 K/mm3 (0-0.2); Basophils % 0.8 % (0.1-2.0); Eosinophils # 0.4 K/mm3 (0.0-0.4); Eosinophils % 6.2 % (0.1-12.0); Hematocrit 33.6 % (37.0-47.0); Hemoglobin 10.5 g/dL (12.2-16.2); Lymphocytes # 1.2 K/mm3 (0.7-4.5); Lymphocytes % 18.6 % (10-50); Mean Corpuscular HGB Conc 31.3 g/dL (31.8-35.4); Mean Corpuscular Hemoglobin 26.1 pg (27.0-31.2); Mean Corpuscular Volume 83.6 fl (81-99); Mean Platelet Volume 11.8 fl (7.4-10.4); Monocytes # 0.4 K/mm3 (0.1-1.0); Monocytes % 6.8 % (1.7-9.3); Neutrophils # 4.2 K/mm3 (1.8-7.8); Neutrophils % 67.7 % (37.0-80.0); Platelet Count 67 K/mm3 (142-424); Red Blood Count 4.02 M/mm3 (4.20-5.40); Red Cell Distribution Width 18.1 % (11.5-17.5); White Blood Count 6.2 K/mm3 (4.8-10.8)
[2022-03-11 12:22] LABS: Alanine Aminotransferase 20 U/L (12-78); Albumin Level 4.3 g/dl (3.5-5.0); Albumin/Globulin Ratio 1.5 (1.1-1.8); Alkaline Phosphatase 145 U/L (38-126); Anion Gap 14.3 mEq/L (5-15); Aspartate Amino Transferase 30 U/L (14-36); Bilirubin,Total 0.6 mg/dl (0.2-1.3); Blood Urea Nitrogen 12 mg/dl (7-17); Calcium 8.9 mg/dl (8.4-10.2); Carbon Dioxide 22 mmol/L (22.0-30.0); Chloride 103 mmol/L (98-107); Estimated Glomerular Filt Rate 63 ml/min (>60); GFR (African American) 76 ML/MIN (>60); Globulin 2.9 g/dL (1.3-3.2); Glucose 92 mg/dl (74-100); Potassium 4.3 mmoL/L (3.5-5.1); Sodium 135 mmol/L (136-145); Total Protein,Serum 7.2 g/dl (6.3-8.2)
[2022-03-11 13:28] LABS: Vitamin B12 727 pg/mL (239-931)
[2022-03-11 13:41] LABS: Folate 6.05 ng/mL
[2022-03-11 15:01] LABS: Iron 50 ug/dL (37-170)
[2022-03-11 15:10] LABS: Total Iron Binding Capacity 435 ug/dL (265-497)
[2022-03-11 15:37] LABS: Ferritin 12.5 ng/ml (11.1-264)
[2022-03-12 16:33] LABS: Albumin 3.8 g/dL (2.9-4.4); Alpha-1-Globulin 0.3 g/dL (0.0-0.4); Alpha-2-Globulin 0.8 g/dL (0.4-1.0); Gamma Globulin 1.3 g/dL (0.4-1.8); Immunoglobulin A, Qn 172 mg/dL (87-352); Immunoglobulin G, Qn 1327 mg/dL (586-1602); Immunoglobulin M, Qn 180 mg/dL (26-217); Protein, Total 7.3 g/dL (6.0-8.5)
[2022-03-16 21:29] LABS: Free Kappa Lt Chains 38.3; Free Lambda Lt Chains 36.4
== END ==
PROVIDERS: PCP Internal Medicine Adolescent Medicine; Visit Provider Internal Medicine Medical Oncology
DX: D64.9 Anemia, unspecified (principal)
CPT/HCPCS: 36415; 80053; 82607; 82728; 82746; 82784; 83540; 83550; 83883; 84155; 84165; 85025; 86334

== ENCOUNTER 2022-04-01 10:01 | Outpatient (CLI) | payer MEDICARE, OTHER, SELFPAY ==
[2022-04-01 10:43] LABS: PHA INR Fingerstick 2.6 (0.9-1.1)
== END 2022-04-01 10:45 ==
LOC: ACC 10:02
PROVIDERS: PCP Internal Medicine Adolescent Medicine; Visit Provider Internal Medicine Adolescent Medicine
DX: Z51.81 Encounter for therapeutic drug level monitoring (principal); Z79.01 Long term (current) use of anticoagulants; I48.91 Unspecified atrial fibrillation
CPT/HCPCS: 85610; 99211; G0463

== ENCOUNTER 2022-05-19 09:45 | Outpatient (CLI) | payer MEDICARE, OTHER, SELFPAY ==
[2022-05-19 10:45] LABS: PHA INR Fingerstick 2.3 (0.9-1.1)
== END 2022-05-19 10:49 ==
LOC: ACC 09:46
PROVIDERS: PCP Internal Medicine Adolescent Medicine; Visit Provider Internal Medicine Adolescent Medicine
DX: Z51.81 Encounter for therapeutic drug level monitoring (principal); Z79.01 Long term (current) use of anticoagulants; I48.91 Unspecified atrial fibrillation
CPT/HCPCS: 85610; 99211; G0463

== ENCOUNTER 2022-06-30 10:02 | Outpatient (CLI) | payer MEDICARE, OTHER, SELFPAY ==
[2022-06-30 10:53] LABS: PHA INR Fingerstick 3.4 (0.9-1.1)
== END 2022-06-30 10:58 ==
LOC: ACC 10:03
PROVIDERS: PCP Internal Medicine Adolescent Medicine; Visit Provider Internal Medicine Adolescent Medicine
DX: Z51.81 Encounter for therapeutic drug level monitoring (principal); Z79.01 Long term (current) use of anticoagulants; I48.91 Unspecified atrial fibrillation
CPT/HCPCS: 85610; 99211; G0463

== ENCOUNTER 2022-07-28 09:55 | Outpatient (CLI) | payer MEDICARE, OTHER, SELFPAY ==
[2022-07-28 13:52] LABS: PHA INR Fingerstick 1.9 (0.9-1.1)
== END 2022-07-28 13:55 ==
LOC: ACC 09:56
PROVIDERS: PCP Internal Medicine Adolescent Medicine; Visit Provider Internal Medicine Adolescent Medicine
DX: Z51.81 Encounter for therapeutic drug level monitoring (principal); Z79.01 Long term (current) use of anticoagulants; I48.91 Unspecified atrial fibrillation
CPT/HCPCS: 85610; 99211; G0463

== ENCOUNTER 2022-08-25 09:52 | Outpatient (CLI) | payer MEDICARE, OTHER, SELFPAY ==
[2022-08-25 10:28] LABS: PHA INR Fingerstick 2.3 (0.9-1.1)
== END 2022-08-25 10:31 ==
LOC: ACC 09:53
PROVIDERS: PCP Internal Medicine Adolescent Medicine; Visit Provider Internal Medicine Adolescent Medicine
DX: Z51.81 Encounter for therapeutic drug level monitoring (principal); Z79.01 Long term (current) use of anticoagulants; I48.91 Unspecified atrial fibrillation
CPT/HCPCS: 85610; 99211; G0463

== ENCOUNTER 2022-10-06 09:49 | Outpatient (CLI) | payer MEDICARE, OTHER, SELFPAY ==
[2022-10-06 10:34] LABS: Prothrombin Time 38.5 seconds (10.1-12.5)
[2022-10-06 11:48] LABS: PHA INR Fingerstick 4.2 (0.9-1.1)
== END 2022-10-06 11:50 ==
LOC: ACC 09:50
PROVIDERS: PCP Internal Medicine Adolescent Medicine; Visit Provider Internal Medicine Adolescent Medicine
DX: Z79.01 Long term (current) use of anticoagulants; Z51.81 Encounter for therapeutic drug level monitoring; I48.91 Unspecified atrial fibrillation
CPT/HCPCS: 36415; 85610; 99211; G0463

== ENCOUNTER 2022-10-21 09:54 | Outpatient (CLI) | payer MEDICARE, OTHER, SELFPAY | END 2022-10-21 14:04 | LOC: ACC 09:55 | PROVIDERS: PCP Internal Medicine Adolescent Medicine; Visit Provider Internal Medicine Adolescent Medicine | DX: Z79.01 Long term (current) use of anticoagulants (principal); Z51.81 Encounter for therapeutic drug level monitoring; I48.91 Unspecified atrial fibrillation | CPT/HCPCS: 85610; 99211; G0463 ==

== ENCOUNTER 2022-11-11 10:01 | Outpatient (CLI) | payer MEDICARE, OTHER, SELFPAY | END 2022-11-11 10:53 | LOC: ACC 10:02 | PROVIDERS: PCP Internal Medicine Adolescent Medicine; Visit Provider Internal Medicine Adolescent Medicine | DX: Z79.01 Long term (current) use of anticoagulants (principal); I48.91 Unspecified atrial fibrillation; Z51.81 Encounter for therapeutic drug level monitoring | CPT/HCPCS: 85610; 99211; G0463 ==

== ENCOUNTER 2022-12-23 10:05 | Outpatient (CLI) | payer MEDICARE, OTHER, SELFPAY ==
[2022-12-23 11:58] LABS: PHA INR Fingerstick 1.6 (0.9-1.1)
== END 2022-12-23 11:59 ==
LOC: ACC 10:06
PROVIDERS: PCP Internal Medicine Adolescent Medicine; Visit Provider Internal Medicine Adolescent Medicine
DX: Z79.01 Long term (current) use of anticoagulants (principal); Z51.81 Encounter for therapeutic drug level monitoring; I48.91 Unspecified atrial fibrillation
CPT/HCPCS: 85610; 99211; G0463

== ENCOUNTER 2023-01-19 09:54 | Outpatient (CLI) | payer MEDICARE, OTHER, SELFPAY ==
[2023-01-19 14:28] LABS: PHA INR Fingerstick 2.1 (0.9-1.1)
== END 2023-01-19 14:49 ==
LOC: ACC 09:55
PROVIDERS: PCP Internal Medicine Adolescent Medicine; Visit Provider Internal Medicine Adolescent Medicine
DX: Z79.01 Long term (current) use of anticoagulants (principal); Z51.81 Encounter for therapeutic drug level monitoring
CPT/HCPCS: 85610; 99211; G0463

== ENCOUNTER 2023-03-02 09:57 | Outpatient (CLI) | payer MEDICARE, OTHER, SELFPAY ==
[2023-03-02 15:23] LABS: PHA INR Fingerstick 2.1 (0.9-1.1)
== END 2023-03-02 15:40 ==
LOC: ACC 10:01
PROVIDERS: PCP Internal Medicine Adolescent Medicine; Visit Provider Internal Medicine Adolescent Medicine
DX: Z79.01 Long term (current) use of anticoagulants (principal); Z51.81 Encounter for therapeutic drug level monitoring; I48.91 Unspecified atrial fibrillation
CPT/HCPCS: 85610; 99211; G0463

== ENCOUNTER 2023-04-10 13:31 | Emergency (ER) | payer MEDICARE, OTHER, SELFPAY ==
[2023-04-10] VITALS (9 sets, daily range): BP systolic 125–159; BP diastolic 69–75; PULSE 58–79; RESP 14–22; TEMP 36.7; O2SAT 98–100; BMI 32.9
--- NOTE | 2023-04-10 14:31 | PC.NURSE ---
DR GALEANO AT BEDSIDE
--- NOTE | 2023-04-10 14:34 | CT_ITS ---
PROCEDURE INFORMATION: Exam: CT Chest Without Contrast; Diagnostic Exam date and time: 04/10/2023 2:50 PM Age: 67 years old Clinical indication: Chest wall pain; Patient HX: Right posterior chest pain, smoked for 30 plus years. On oxygen all the time now. 3 liters she states. ; Additional info: Right posterior thoracic pain TECHNIQUE: Imaging protocol: Diagnostic computed tomography of the chest without contrast. Radiation optimization: All CT scans at this facility use at least one of these dose optimization techniques: automated exposure control; mA and/or kV adjustment per patient size (includes targeted exams where dose is matched to clinical indication); or iterative reconstruction. COMPARISON: CT CHEST W CON 02/04/2022 9:13 AM FINDINGS: Lungs: Bibasilar atelectasis versus parenchymal scarring. Peripheral regions of stellate opacities in the juxtapleural region right lung base measuring 10 x 12 mm in maximum dimensions. Findings are new. Mild changes of bronchiectasis are present in this region. 10 mm stellate mass with spicules extending to the left lung base demonstrated medially in the left lower lobe. Pleural spaces: Unremarkable. No pneumothorax. No pleural effusion. Heart: Unremarkable. No cardiomegaly. No pericardial effusion. Coronary arteries: Coronary artery calcification Lymph nodes: Calcified mediastinal and left hilar lymph nodes. Persistent noncalcified nonspecific adenopathy in the AP window as well as pretracheal space. Vasculature: Regions of atherosclerotic vascular calcification involving the aortic arch. Bones/joints: Unremarkable. No acute fracture. Soft tissues: Unremarkable. Other findings: Findings demonstrated on series 3, image number 67. IMPRESSION: Multiple stellate juxtapleural nodules demonstrated bilaterally at both lung bases as described above. Findings suspicious for malignancy until proven otherwise. Follow-up with Consider non-emergent PET/CT, or tissue sampling.(Reference: Sharlene) REFERENCES: Sharlene Benjamin, et al. Guidelines for Management of Incidental Pulmonary Nodules Detected on CT Images: From the Fleischner Society 2017. Radiology. 2017;284(1):228-243.
--- NOTE | 2023-04-10 14:34 | CT_ITS ---
PROCEDURE INFORMATION: Exam: CT Thoracic Spine Without Contrast Exam date and time: 04/10/2023 2:53 PM Age: 67 years old Clinical indication: Pain in thoracic spine; Other: Post childbirth many years ago; Patient HX: Patient states she has had infrequent thoracic spine pain after having children many years ago. ; Additional info: Severe back pain TECHNIQUE: Imaging protocol: Computed tomography of the thoracic spine without contrast. Radiation optimization: All CT scans at this facility use at least one of these dose optimization techniques: automated exposure control; mA and/or kV adjustment per patient size (includes targeted exams where dose is matched to clinical indication); or iterative reconstruction. COMPARISON: CT THORACIC SPINE WO CON 01/06/2022 1:45 AM FINDINGS: Bones/joints: Probable hemangioma left lateral aspect T12 vertebral body. Osteopenia. Soft tissues: Unremarkable. IMPRESSION: 1. No evidence of acute osseous injury. 2. Probable hemangioma left lateral aspect T12 vertebral body.
--- NOTE | 2023-04-10 14:37 | HMH.EDGENADL ---
Discharge Plan Disposition Patient Disposition: Home, Self-Care Prescriptions Prescriptions: No Action lisinopril 5 mg tablet 5 mg PO DAILY Patient Comments: TAKE 1 TABLET BY MOUTH ONCE DAILY FOR 90 DAYS Anoro Ellipta 62.5-25 mcg/actuation blister with device 1 inh INHALATION DAILY Patient Comments: INHALE 1 PUFF BY MOUTH ONCE DAILY warfarin 5 MG tablet 2.5 mg PO MO Rx Instructions: Mondays warfarin 5 mg tablet 5 mg PO SUTUWETHFRSA Referrals Follow up/Referrals: Boo Carpenter MD [Primary Care Provider] - See instructions Activity Restrictions/Add. Instructions Additional Instructions/Restrictions: At this time it was felt you are safe to be discharged home. If new or worsening symptoms please do not hesitate to return the emergency department. 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 Please continue to follow-up with Dr. Carpenter as discussed. Clinical Impressions Clinical Impression: Back pain, thoracic, Multiple pulmonary nodules Instructions Patient Instructions: DI for Low Back Pain Discharge ED Provider: Tripp Burt General Adult HPI <Tripp Burt MD - Last Filed: 04/10/23 14:38> General Chief complaint: Back Pain/Injury Stated complaint: back pain Time Seen by Provider: 04/10/23 14:30 Mode of Arrival: Ambulatory Source of Information: Patient Limitations: No Limitations Description of Symptoms (Recalled from ER Triage Doc. by RN): patient ambulatory to ED with complaints of back pain x 2 weeks. She reports she was reaching for something 2 weeks ago, and pulled a muscle. Pain is constant and sharp originating at right flanks. denies fall or bruning/frequency with urinations. Dr. Carpenter prescibed Robaxin 2 days ago without relief. Lidocaine patch in place to affected area. patient with chronic back issues since 80s with acute flare ups History of Present Illness HPI narrative: Patient is a 67-year-old female present today with severe back pain. States she was reaching over the incident 2 weeks ago and felt like something tore on the superior lateral aspect of the right side of the thoracic cage. Since that time she has been taking anti-inflammatory medications as well as lidocaine patches and her doctor recently prescribed Robaxin. No significant improvement and states it got severe. No chest pain no shortness of breath no fevers or chills or cough. Related Data Home Medications Medication Instructions Recorded Confirmed warfarin 5 mg tablet 2.5 mg PO MO Blood thinner, AFIB 02/24/18 03/02/23 lisinopril 5 mg tablet 5 mg PO DAILY Hypertension 01/06/22 03/02/23 umeclidinium 62.5 mcg-vilanterol 1 inh inhalation DAILY COPD 01/06/22 03/02/23 25 mcg/actuation powdr for inhalation (Anoro Ellipta) warfarin 5 mg tablet 5 mg PO SUTUWETHFRSA BLOOD 12/23/22 03/02/23 THINNER, AFIB Allergies Allergy/AdvReac Type Severity Reaction Status Date / Time No Known Allergies Allergy Verified 03/11/22 09:12 REPLACED BY [facility] <Tripp Burt MD - Last Filed: 04/10/23 14:38> REPLACED BY [facility] Disclaimer: The information contained in this section may have been updated after the patient was seen, as this information can be updated by other users. 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 Atrial fibrillation History of hypertension Surgical History History of bilateral tubal ligation Social History Smoking Status: Never smoker second hand exposure: No alcohol intake: never current occupational status: disabled Travel in the last 8 weeks: None household members: children housing: house current occupational exposures/hazards: No caffeine: Yes <Tripp Burt MD - Last Filed: 04/10/23 14:38> ROS Obtained: Yes All systems reviewed & no additional complaints except as documented Physical Exam <Tripp Burt MD - Last Filed: 04/10/23 14:38> General General appearance: alert Respiratory Respiratory exam: Present normal lung sounds bilaterally Cardiovascular Cardiovascular exam: Present regular rate Back Exam Back 1 view image: 1. ttp Neurological Exam Neurological exam: Present alert and oriented X3 Medical Decision Making <Tripp Burt MD - Last Filed: 04/10/23 14:38> [place] Inquiry Pt receiving controlled substance: No Vital Signs: 04/10/23 13:32 04/10/23 14:40 04/10/23 15:01 Temperature 98.0 F Temperature Source Oral Pulse Rate 69 64 Pulse Rate [Left] 79 Respiratory Rate 22 Blood Pressure 159/75 H 141/74 H Blood Pressure [Right Arm] 158/75 H Blood Pressure Mean [Right Arm] 102 Blood Pressure Source [Right Arm] Automatic Cuff Blood Pressure Position [Right Arm] Sitting 02 Sat by Pulse Oximetry 98 98 100 Oxygen Delivery Method Room Air Nasal Cannula Nasal Cannula Oxygen Flow Rate (LPM) 3.5 3.5 04/10/23 15:41 04/10/23 16:00 Temperature Temperature Source Pulse Rate 61 58 L Pulse Rate [Left] Respiratory Rate Blood Pressure 132/69 140/72 Blood Pressure [Right Arm] Blood Pressure Mean [Right Arm] Blood Pressure Source [Right Arm] Blood Pressure Position [Right Arm] 02 Sat by Pulse Oximetry 100 99 Oxygen Delivery Method Nasal Cannula Nasal Cannula Oxygen Flow Rate (LPM) 3.5 3.5 Orders (Tests/Meds): ED MEDICATIONS Discontinued Medications Generic Name Dose Route Start Last Admin Trade Name Freq PRN Reason Stop Dose Admin Hydrocodone Bitart/Acetaminophen 1 tab 04/10/23 14:36 04/10/23 14:40 Hydrocodone/Apap 5/325 Mg Tablet PO 04/10/23 14:37 1 tab ONCE ONE Administration Ketorolac Tromethamine 60 mg 04/10/23 14:36 04/10/23 14:40 Ketorolac 60mg/2ml Vial IM 04/10/23 14:37 60 mg ONCE ONE Administration ORDERS Category Date Time Status CT chest wo con Stat Cat Scan 04/10/23 14:[address] thoracic spine wo con Stat Cat Scan 04/10/23 14:34 Completed Medical Decision Narrative: 67-year-old female with a history of a probable musculoskeletal strain given her mechanism. However with the superficial and severe pain that she is having despite treatment at home other differential would include pathologic rib fractures pneumonia malignancy in that region spine fracture etc. Will get a CT scan of her thoracic spine as well as her chest without contrast. I do not suspect aortic dissection pulmonary embolism etc. Will give her Toradol as well as Chester and reassess of care we can transition to Dr. Huber Perez for further evaluation and treatment. <Sekou Perez MD - Last Filed: 04/10/23 16:57> Vital Signs: 04/10/23 13:32 04/10/23 14:40 04/10/23 15:01 Temperature 98.0 F Temperature Source Oral Pulse Rate 69 64 Pulse Rate [Left] 79 Respiratory Rate 22 Blood Pressure 159/75 H 141/74 H Blood Pressure [Right Arm] 158/75 H Blood Pressure Mean [Right Arm] 102 Blood Pressure Source [Right Arm] Automatic Cuff Blood Pressure Position [Right Arm] Sitting 02 Sat by Pulse Oximetry 98 98 100 Oxygen Delivery Method Room Air Nasal Cannula Nasal Cannula Oxygen Flow Rate (LPM) 3.5 3.5 04/10/23 15:41 04/10/23 16:00 Temperature Temperature Source Pulse Rate 61 58 L Pulse Rate [Left] Respiratory Rate Blood Pressure 132/69 140/72 Blood Pressure [Right Arm] Blood Pressure Mean [Right Arm] Blood Pressure Source [Right Arm] Blood Pressure Position [Right Arm] 02 Sat by Pulse Oximetry 100 99 Oxygen Delivery Method Nasal Cannula Nasal Cannula Oxygen Flow Rate (LPM) 3.5 3.5 Orders (Tests/Meds): ED MEDICATIONS Discontinued Medications Generic Name Dose Route Start Last Admin Trade Name Freq PRN Reason Stop Dose Admin Hydrocodone Bitart/Acetaminophen 1 tab 04/10/23 14:36 04/10/23 14:40 Hydrocodone/Apap 5/325 Mg Tablet PO 04/10/23 14:37 1 tab ONCE ONE Administration Ketorolac Tromethamine 60 mg 04/10/23 14:36 04/10/23 14:40 Ketorolac 60mg/2ml Vial IM 04/10/23 14:37 60 mg ONCE ONE Administration ORDERS Category Date Time Status CT chest wo con Stat Cat Scan 04/10/23 14:[address] thoracic spine wo con Stat Cat Scan 04/10/23 14:34 Completed Medical Decision Narrative: 67-year-old female with a history of a probable musculoskeletal strain given her mechanism. However with the superficial and severe pain that she is having despite treatment at home other differential would include pathologic rib fractures pneumonia malignancy in that region spine fracture etc. Will get a CT scan of her thoracic spine as well as her chest without contrast. I do not suspect aortic dissection pulmonary embolism etc. Will give her Toradol as well as Chester and reassess of care we can transition to Dr. Huber Perez for further evaluation and treatment. Sekou Perez: Upon assumption of care patient is hemodynamically stable. Workup reviewed by me, CT imaging shows no acute thoracic spine abnormality, incidental hemangioma of the T12 vertebral body for which no further workup is indicated. Multiple stellate nodules bilaterally at the lung bases suspicious for malignancy until proven otherwise. These findings were relayed to the patient and patient was instructed to follow-up with Dr. Carpenter within the next week or 2 for continued outpatient evaluation. Critical Care <Tripp Burt MD - Last Filed: 04/10/23 14:38> Critical Care Time Critical Care Time: No
[2023-04-10] MEDS: HYDROCODONE/APAP 5/325 MG TABLET 1 TAB PO (14:40)
[2023-04-10] MEDS: KETOROLAC 60MG/2ML VIAL 60 MG IM (14:40)
--- NOTE | 2023-04-10 15:30 | PC.NURSE ---
ROUNDED ON PT, UPDATED ON POC. CALL LIGHT WITHIN REACH. AT BEDSIDE. NO NEEDS AT THIS TIME
--- NOTE | 2023-04-10 16:50 | PC.NURSE ---
DR BELL AT BEDSIDE TO UPDATE PT
== END 2023-04-10 17:06 | disposition home or self-care (01) ==
PROVIDERS: Emergency Provider Student in an Organized Health Care Education/Training Program; PCP Internal Medicine Adolescent Medicine
DX: M54.6 Pain in thoracic spine (principal); R91.8 Other nonspecific abnormal finding of lung field; I48.91 Unspecified atrial fibrillation; I10 Essential (primary) hypertension; X50.0XXA Overexertion from strenuous movement or load, initial encounter
CPT/HCPCS: 71250; 72128; 96372; 99285

== ENCOUNTER 2023-04-13 13:45 | Emergency (ER) | payer MEDICARE, OTHER, SELFPAY ==
[2023-04-13 13:46] VITALS: BP 155/83; PULSE 86; RESP 18; TEMP 36.7; O2SAT 96; BMI 29.7
[2023-04-13 14:00] VITALS: BP 153/75; PULSE 82; O2SAT 97
--- NOTE | 2023-04-13 14:12 | ED_ITS ---
Discharge Plan Disposition Patient Disposition: Home, Self-Care Condition: Good Prescriptions Prescriptions: New methocarbamol 750 mg tablet 750 mg PO TID PRN (Reason: pain) 5 Days Qty: 15 0RF lidocaine 5 % adhesive patch,medicated 1 patch topical DAILY Qty: 15 0RF Rx Instructions: leave on most painful area for up to 12 hrs No Action lisinopril 5 mg tablet 5 mg PO DAILY Patient Comments: TAKE 1 TABLET BY MOUTH ONCE DAILY FOR 90 DAYS Anoro Ellipta 62.5-25 mcg/actuation blister with device 1 inh INHALATION DAILY Patient Comments: INHALE 1 PUFF BY MOUTH ONCE DAILY warfarin 5 MG tablet 2.5 mg PO MO Rx Instructions: Mondays warfarin 5 mg tablet 5 mg PO SUTUWETHFRSA Referrals Follow up/Referrals: Boo Carpenter MD [Primary Care Provider] - See instructions Activity Restrictions/Add. Instructions Additional Instructions/Restrictions: You have been evaluated in the ED for your complaints. You may follow-up with your PCP in the next 3 to 5 days. Please return to ED for any new or worsening symptoms. I have written for prescription for Robaxin to further assist with your pain. I have also written for more lidocaine patches. Please follow-up with your PCP for reassessment. Please keep your appointment with pain management on 05/02/2023. Clinical Impressions Clinical Impression: Back pain, Back muscle spasm Instructions Patient Instructions: DI for Low Back Pain Discharge ED Provider: Gideon Cedeño Adult HPI General Chief complaint: Back Pain/Injury Stated complaint: back pain Time Seen by Provider: 04/13/23 13:50 Mode of Arrival: Ambulatory Source of Information: Patient Limitations: No Limitations Description of Symptoms (Recalled from ER Triage Doc. by RN): Patient reports right mid to lower back pain for [address]. [address] Carpenter prescribed her Robaxin and it helps the lower part for a little bit but her right mid back is hurting really bad. Denies any injury. History of Present Illness HPI narrative: 67-year-old female with past medical history significant for atrial fibrillation, hypertension, COPD on 2 to 3 L of O2, history of NSTEMI, presents today for evaluation concerning right-sided back pain that has been present over the past 3 weeks. She does state that 3 weeks ago she was bending over and pulled a muscle in her back. She was evaluated in the ED on 04/10/2023 for the same complaint and had CT scans that did not show any fractures. States that she has been taking Robaxin over the past few days with some but not complete relief of her pain. She denies any new injuries. States that she has been following up with her primary care provider and attempted to call him today secondary to her pain however she could not get a hold of his office and came to the ED for further management. She has continued to ambulate however with pain. No further complaints Related Data Home Medications Medication Instructions Recorded Confirmed warfarin 5 mg tablet 2.5 mg PO MO Blood thinner, AFIB 02/24/18 03/02/23 lisinopril 5 mg tablet 5 mg PO DAILY Hypertension 01/06/22 03/02/23 umeclidinium 62.5 mcg-vilanterol 1 inh inhalation DAILY COPD 01/06/22 03/02/23 25 mcg/actuation powdr for inhalation (Anoro Ellipta) warfarin 5 mg tablet 5 mg PO SUTUWETHFRSA BLOOD 12/23/22 03/02/23 THINNER, AFIB Previous Rx's Medication Instructions Recorded lidocaine 5 % topical patch 1 patch topical DAILY #15 ea 04/13/23 methocarbamol 750 mg tablet 750 mg PO TID PRN pain 5 days #15 04/13/23 tabs Allergies Allergy/AdvReac Type Severity Reaction Status Date / Time No Known Allergies Allergy Verified 03/11/22 09:12 [facility] Disclaimer: The information contained in this section may have been updated after the adam self was seen, as this information can be updated by other users. 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 Atrial fibrillation History of hypertension Surgical History History of bilateral tubal ligation Social History Smoking Status: Unknown if ever smoked second hand exposure: No alcohol intake: never current occupational status: disabled Travel in the last 8 weeks: None household members: children housing: house current occupational exposures/hazards: No caffeine: Yes ROS Obtained: Yes All systems reviewed & no additional complaints except as documented Physical Exam General General appearance: alert and in no apparent distress Head Head exam: atraumatic and normocephalic Eye Eye exam: Present normal appearance, PERRL and EOMI ENT ENT exam: Present normal oropharynx and mucous membranes moist Neck Neck exam: Present full ROM; Absent meningismus Respiratory Respiratory exam: Absent respiratory distress, wheezes, stridor or accessory muscle use Cardiovascular Cardiovascular exam: Present normal rhythm Abdominal Exam Abdominal exam: Present soft; Absent distention, tenderness, guarding, rebound or rigidity Back Exam Back exam: Present full ROM, tenderness, muscle spasm and other (Patient with no midline tenderness palpation of the C/T/L-spine. Tenderness along the musculature of the right side of the back in the thoracic and lumbar regions. Mild hypertonicity.); Absent vertebral tenderness or rashes Neurological Exam Neurological exam: Present alert, oriented X3 and CN II-XII intact; Absent motor sensory deficit Psychiatric Psychiatric exam: Present normal affect and normal mood Skin Skin exam: Present warm and dry Medical Decision Making Medical Records Medical records reviewed: Yes I reviewed the patient's medical records. [place] Inquiry Pt receiving controlled substance: No S[place] was queried for this patient: No Vital Signs: 04/13/23 13:46 04/13/23 14:00 04/13/23 14:20 Temperature 98.1 F Temperature Source Oral Pulse Rate 82 71 Pulse Rate [Radial] 86 Respiratory Rate 18 Blood Pressure 153/75 H 131/69 Blood Pressure [Right Arm] 155/83 H Blood Pressure Mean 112 105 Blood Pressure Mean [Right Arm] 107 Blood Pressure Source [Right Arm] Automatic Cuff Blood Pressure Position [Right Arm] Sitting 02 Sat by Pulse Oximetry 96 97 98 Oxygen Delivery Method Room Air Room Air Room Air 04/13/23 14:40 04/13/23 15:00 Temperature Temperature Source Pulse Rate 77 67 Pulse Rate [Radial] Respiratory Rate Blood Pressure 140/73 116/63 Blood Pressure [Right Arm] Blood Pressure Mean Blood Pressure Mean [Right Arm] Blood Pressure Source [Right Arm] Blood Pressure Position [Right Arm] 02 Sat by Pulse Oximetry 97 97 Oxygen Delivery Method Room Air Room Air Orders (Tests/Meds): ED MEDICATIONS Discontinued Medications Generic Name Dose Route Start Last Admin Trade Name Freq PRN Reason Stop Dose Admin Acetaminophen 1,000 mg 04/13/23 14:05 04/13/23 14:17 Acetaminophen 500mg Tab PO 04/13/23 14:06 1,000 mg ONCE ONE Administration Oxycodone HCl 5 mg 04/13/23 14:07 02/14/24 14:17 Oxycodone 5mg Immediate Release Tablet PO 04/13/23 14:08 5 mg ONCE ONE Administration Medical Decision Narrative: 67-year-old female with past medical history significant for atrial fibrillation, hypertension, COPD on 2 to 3 L of O2, history of NSTEMI, presents today for evaluation concerning right-sided back pain that has been present over the past 3 weeks. She does state that 3 weeks ago she was bending over and pulled a muscle in her back. She was evaluated in the ED on 04/10/2023 for the same complaint and had CT scans that did not show any fractures. Reports that she has been taking Robaxin that was prescribed by her PCP noting that she did 2 Robaxin around 10 AM. She also had 800 mg of ibuprofen around the same time. Has also been using lidocaine patches. States that her pain is somewhat improved however would not completely go away. Denies any new injuries. On assessment she was hemodynamically stable and in no acute distress. She did have tenderness to palpation along the musculature of the back and the thoracic and lumbar region on the right. There were no external signs of trauma. There is no midline tenderness palpation of the C/T/L-spine. Mild hypertonicity was noted along the musculature. Other physical exam findings were unremarkable. Differential diagnoses include not limited to muscle spasm, uncontrolled pain, fracture, among others. I personally reviewed patient's ED workup from 04/10/2023. She did have CT imaging of the thoracic spine during that time and there was no evidence of acute bony abnormalities. A hemangioma along the left lateral aspect of T12 was noted. Given that patient has no red flag symptoms with a normal neurological exam and no new traumas, did not order new CT imaging to assess. I did provide patient with 1000 mg of Tylenol and 5 mg of oxycodone while in the ED to further assist. I did not provide her with Robaxin as she had already taken it this morning. On reassessment she stated that her pain was improved. I discussed ED workup and management and current plan to discharge home with refill for Kristie cannonin. Also instructed patient that she can continue to take 1000 mg of Tylenol to further assist as well as 800 mg of ibuprofen. She will also continue to use her lidocaine patches. She has an appointment scheduled with pain management on 05/02/2023 which she will keep. Provided her with return ED precautions and instructions concerning PCP follow-up. She verbalized understanding and agreement with plan and was subsequent discharged home hemodynamically stable and in no acute distress. Critical Care Critical Care Time Critical Care Time: No
[2023-04-13] MEDS: ACETAMINOPHEN 500MG TAB 1000 MG PO (14:17)
[2023-04-13] MEDS: OXYCODONE 5MG IMMEDIATE RELEASE TABLET 5 MG PO (14:17)
[2023-04-13 14:20] VITALS: BP 131/69; PULSE 71; O2SAT 98
--- NOTE | 2023-04-13 14:31 | PC.NURSE ---
Rounded on pt. No needs voiced at this time. Call light within reach.
[2023-04-13 14:40] VITALS: BP 140/73; PULSE 77; O2SAT 97
[2023-04-13 15:00] VITALS: BP 116/63; PULSE 67; O2SAT 97
--- NOTE | 2023-04-13 15:15 | PC.NURSE ---
DR LOPEZ AT BEDSIDE TO UPDATE PT
[2023-04-13 15:26] VITALS: BP 113/63; PULSE 62; RESP 18; TEMP 36.7; O2SAT 98
== END 2023-04-13 15:26 | disposition home or self-care (01) ==
PROVIDERS: Emergency Provider Emergency Medicine; PCP Internal Medicine Adolescent Medicine
DX: M54.50 Low back pain, unspecified (principal); M62.830 Muscle spasm of back; J44.9 Chronic obstructive pulmonary disease, unspecified; I10 Essential (primary) hypertension; I48.0 Paroxysmal atrial fibrillation; Z79.01 Long term (current) use of anticoagulants
CPT/HCPCS: 99283

== ENCOUNTER 2023-04-21 09:57 | Outpatient (CLI) | payer MEDICARE, OTHER, SELFPAY ==
[2023-04-21 10:59] LABS: INR 4.32 (0.9-1.1); Prothrombin Time 42.4 seconds (10.1-12.5)
[2023-04-21 14:01] LABS: PHA INR Fingerstick 4.4 (0.9-1.1)
== END 2023-04-21 14:05 ==
PROVIDERS: PCP Internal Medicine Adolescent Medicine; Visit Provider Internal Medicine Adolescent Medicine
DX: Z51.81 Encounter for therapeutic drug level monitoring; Z79.01 Long term (current) use of anticoagulants; I48.91 Unspecified atrial fibrillation
CPT/HCPCS: 36415; 85610; 99211; G0463

== ENCOUNTER 2023-05-06 13:24 | Inpatient (IN) | payer MEDICARE, OTHER, SELFPAY ==
[2023-05-06] VITALS (8 sets, daily range): BP systolic 119–157; BP diastolic 52–72; PULSE 70–107; RESP 16–36; TEMP 36.4–37; O2SAT 97–99; BMI 32.5; BMI 33.5
--- NOTE | 2023-05-06 13:32 | ECG_ITS ---
APPROVED REPORT Exam: Resting ECG HR:100 bpm ECG Measurements Heart Rate 100 AXES AK 212 P 74 QRSd 76 QRS 76 QT 328 T 76 QTc 385 Conclusion SINUS TACHYCARDIA WITH FIRST DEGREE AV BLOCK WITH FREQUENT SUPRAVENTRICULAR PREMATURE COMPLEXES SEPTAL MYOCARDIAL INFARCTION , OF INDETERMINATE AGE [40+ ms Q WAVE IN V1/V2] ABNORMAL ECG UNCONFIRMED REPORT Electronically signed by : Nagi Burt, 05/06/2023 15:45:18
--- NOTE | 2023-05-06 13:56 | XR_ITS ---
FINAL REPORT CLINICAL HISTORY: Shortness of breath, chest tightness COMPARISON: None FINDINGS: A single portable view of the chest was obtained. The heart is normal in size. Pulmonary vascularity is within normal limits. The mediastinum is within normal limits. Right basilar opacities are favored to represent atelectasis. The bony thorax is intact. IMPRESSION: Right basilar opacities favor atelectasis. Reviewed, Interpreted and Dictated by Mehrdad Pires III, MD Transcribed by Niesha Ulloa Authenticated and [facility]
[2023-05-06 14:10] LABS: Alanine Aminotransferase 31 U/L (12-78); Albumin Level 3.6 g/dl (3.5-5.0); Albumin/Globulin Ratio 1.4 (1.1-1.8); Alkaline Phosphatase 101 U/L (38-126); Anion Gap 11.9 mEq/L (5-15); Aspartate Amino Transferase 36 U/L (14-36); Bilirubin,Total 0.4 mg/dl (0.2-1.3); Blood Urea Nitrogen 8 mg/dl (7-17); Calcium 8.5 mg/dl (8.4-10.2); Carbon Dioxide 23 mmol/L (22.0-30.0); Chloride 102 mmol/L (98-107); Creatinine Clearance Estimated 79 mL/min (50-200); Estimated Glomerular Filt Rate 62 ml/min (>60); GFR (African American) 76 ML/MIN (>60); Globulin 2.6 g/dL (1.3-3.2); Glucose 114 mg/dl (74-100); Potassium 3.9 mmoL/L (3.5-5.1); Sodium 133 mmol/L (136-145); Total Protein,Serum 6.2 g/dl (6.3-8.2)
--- NOTE | 2023-05-06 14:10 | PC.NURSE ---
rounded on pt, states she is feeling better after resting in the bed for several minutes. She is maintaining 3LPM NC >95%
[2023-05-06 14:11] LABS: INR 1.38 (0.9-1.1); Prothrombin Time 14.6 seconds (10.1-12.5)
--- NOTE | 2023-05-06 14:17 | PC.NURSE ---
DR GALEANO AT BEDSIDE
[2023-05-06 14:22] LABS: Troponin I 0.02 ng/ml (0.00-0.034)
--- NOTE | 2023-05-06 14:24 | CT_ITS ---
FINAL REPORT TECHNIQUE: Then section axial CT images of the chest were obtained with contrast. Three-D reformatted images were also obtained.This study was performed with techniques to keep radiation doses as low as reasonably achievable (ALARA). Individualized dose reduction techniques using automated exposure control or adjustment of mA and/or kV according to the patient''s size were employed. CLINICAL HISTORY: dyspnea, hypoxia COMPARISON: Prior CT chest dated 04/10/2023 FINDINGS: There is no evidence of pulmonary embolism. There is no evidence of thoracic aortic aneurysm or dissection. There is mild mediastinal adenopathy, with several nodes slightly larger than noted on the prior exam. These are nonspecific, favor reactive over neoplastic but continued follow-up is warranted. Small bilateral pleural effusions are present, new since the prior exam. Mild bibasilar atelectasis is present as well. Limited images of the upper abdomen are remarkable for mild adenopathy as well, slightly worse than noted on the prior exam. IMPRESSION: No evidence of pulmonary embolism. Mild mediastinal adenopathy, slightly worse than noted on the prior exam of April 10. Nonspecific, favor reactive over neoplastic, however continued follow-up is warranted. Upper abdominal adenopathy also slightly worse than seen on the prior exam. New bilateral pleural effusions. Reviewed, Interpreted and Dictated by Mehrdad Pires III, MD Transcribed by Lila Nath Authenticated and . [facility]
[2023-05-06 14:27] LABS: Basophils % 0.6 % (0.1-2.0); Eosinophils # 0.2 K/mm3 (0.0-0.4); Lymphocytes % 18.2 % (10-50); Mean Corpuscular HGB Conc 29.3 g/dL (31.8-35.4); Mean Corpuscular Hemoglobin 23.6 pg (27.0-31.2); Mean Corpuscular Volume 80.8 fl (81-99); Monocytes # 0.4 K/mm3 (0.1-1.0); Monocytes % 7.1 % (1.7-9.3); Neutrophils # 4.1 K/mm3 (1.8-7.8); Platelet Count 201 K/mm3 (142-424); Red Blood Count 2.08 M/mm3 (4.20-5.40); Red Cell Distribution Width 22.8 % (11.5-17.5); White Blood Count 5.7 K/mm3 (4.8-10.8)
[2023-05-06 14:29] LABS: Hematocrit 16.8 % (37.0-47.0); Hemoglobin 4.9 g/dL (12.2-16.2)
--- NOTE | 2023-05-06 14:33 | PC.NURSE ---
CRITICAL H&H 4.9/16.8 RECEIVED FROM BOYKIN IN LAB. PT NAME AND R/V. DR GALEANO NOTIFIED
[2023-05-06] MEDS: 0.9 % SODIUM CHLORIDE 50 ML VIAL IV (14:43)
[2023-05-06] MEDS: IOPAMIDOL-370 (76%);100ML BOTTLE 85 ML IV (14:43)
[2023-05-06 14:51] LABS: D-Dimer < 0.25 ug/mL (0.0-0.5)
--- NOTE | 2023-05-06 15:01 | PC.NURSE ---
Rounded on pt to see if they needed anything. pt had no needs at this time
--- NOTE | 2023-05-06 15:20 | PC.NURSE ---
. Dr. Burt at bedside
[2023-05-06 15:24] LABS: NT Pro Brain Natriuretic Pep. 1210 pg/mL (0-125)
--- NOTE | 2023-05-06 15:24 | PC.NURSE ---
paged Dr Gooden
--- NOTE | 2023-05-06 15:24 | HMH.EDCP ---
Discharge Plan Disposition Patient Disposition: Admitted Prescriptions Prescriptions: No Action warfarin 5 MG tablet 2.5 mg PO MO Rx Instructions: Mondays warfarin 5 mg tablet 5 mg PO SUTUWETHFRSA methocarbamol 750 mg tablet 750 mg PO TID PRN (Reason: pain) 5 Days Qty: 15 0RF lidocaine 5 % adhesive patch,medicated 1 patch topical DAILY Qty: 15 0RF Rx Instructions: leave on most painful area for up to 12 hrs triamcinolone acetonide 0.5 % cream 1 applic TOPICAL BIDP PRN (Reason: Skin Condition) levalbuterol tartrate 45 mcg/actuation HFA aerosol inhaler 2 puff INHALATION DAILY Breztri Aerosphere 160-9-4.8 mcg/actuation HFA aerosol inhaler 2 puff INHALATION BID Patient Comments: INHALE 2 PUFFS TWICE DAILY FOR 30 DAYS Referrals Follow up/Referrals: Boo Carepnter MD [Primary Care Provider] - See instructions Clinical Impressions Clinical Impression: Acute upper gastrointestinal bleeding, Acute blood loss anemia, Acute dyspnea Discharge ED Provider: Tripp Burt HPI General Chief Complaint: Shortness of Breath/Dyspnea Stated Complaint: soa Time Seen by Provider: 05/06/23 14:12 Mode of Arrival: Family Vehicle Source of Information: Patient, Spouse and Medical Record Limitations: No Limitations Description of Symptoms (Recalled from ER Triage Doc. by RN): Pt c/o SOA, dyspnea, and tightness to her chest that has progressively worsened since her pneumonia vaccine at Dr. Carpenter's office earlier this week. She is O2 dependent at 3LPM NC d/t my afib . She is also on warfarin d/t afib. States I can't lay down or walk to the bathroom . States she also had redness and swelling to her face after the vaccine. States Dr. Carpenter thinks I have COPD but I haven't been tested . History of Present Illness HPI narrative: Patient is a 68-year-old female with a history of atrial fibrillation on Coumadin who presents today with dyspnea. States that she has felt this way for the last several days she is convinced that she has pneumonia and was in fact convinced that her recent pneumonia vaccine caused her to feel this way. She denies any fevers or chills did have a runny nose a few days ago. States that she is profoundly dyspneic with any type of walking. Does have a history of diastolic heart dysfunction in the past. No lower extremity swelling or orthopnea or PND. She states she has not felt well over the last several days and has not taken her Coumadin for 1-1/2 doses. Related Data Home Medications Medication Instructions Recorded Confirmed warfarin 5 mg tablet 2.5 mg PO MO Blood thinner, AFIB 02/24/18 05/06/23 warfarin 5 mg tablet 5 mg PO SUTUWETHFRSA BLOOD 12/23/22 05/06/23 THINNER, AFIB budesonide 160 mcg-glycopyr 9 2 puff inhalation BID 05/06/23 05/06/23 mcg-formot 4.8 mcg/actuation HFA inhaler ([employer]) levalbuterol tartrate 45 2 puff inhalation DAILY 05/06/23 05/06/23 mcg/actuation aerosol inhaler triamcinolone acetonide 0.5 % 1 applic topical BIDP PRN Skin 05/06/23 05/06/23 topical cream Condition Previous Rx's Medication Instructions Recorded lidocaine 5 % topical patch 1 patch topical DAILY #15 ea 04/13/23 methocarbamol 750 mg tablet 750 mg PO TID PRN pain 5 days #15 04/13/23 tabs Allergies Allergy/AdvReac Type Severity Reaction Status Date / Time No Known Allergies Allergy Verified 03/11/22 09:12 [facility] Disclaimer: The information contained in this section may have been updated after the patient was seen, as this information can be updated by other users. 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 Atrial fibrillation History of hypertension Surgical History History of bilateral tubal ligation Social History Smoking Status: Never smoker second hand exposure: No alcohol intake: never current occupational status: disabled Travel in the last 8 weeks: None household members: children housing: house current occupational exposures/hazards: No caffeine: Yes ROS Obtained: Yes All systems reviewed & no additional complaints except as documented Physical Exam General General appearance: alert and other (Pale in appearance) Chest Chest inspection: Present normal inspection; Absent symmetric chest wall rise Respiratory Respiratory exam: Present normal lung sounds bilaterally; Absent respiratory distress Cardiovascular Cardiovascular exam: Present normal rhythm and tachycardia Abdominal Exam Abdominal exam: Present soft; Absent distention or tenderness Neurological Exam Neurological exam: Present alert and oriented X3 HEART Score HEART Score HEART Score assessment performed?: Yes History (anamnesis): Slightly suspicious ECG: Non-specific disturbance Age: >65 years Risk factors: 3 or more risk factors Troponin: </= normal limit HEART Score: 5 Procedures Miscellaneous Procedure Procedure Performed: Limited cardiac ultrasound Indication: Dyspnea Identified structures: The heart was visualized in the parasternal long axis, parastenal short axis, apical four chamber and subxyphiod views. The IVC was visualized in the short axis and long axis at its entry into the right atrium. Findings: No currently or severely depressed EF no significant or severe right heart strain no pericardial effusion Impression: Normal limits a cardiac ultrasound Images were saved to permanent archive The study was technically adequate CPT: 21439-09 This study was performed by sd, and I personally interpreted all images/videos. Based on my clinical judgement, these images were adequate and did not necessitate further imaging. Limited lung ultrasound A focused ultrasound exam of the pleural spaces was performed to evaluate for pneumothorax, pulmonary edema, pleural effusion and/or consolidation. The ultrasound was performed with the following indications, as noted in the H&P: Dyspnea Identified structures: Right and left thoracic cavities were examined. Findings: Lung sliding present throughout there is some scant B-lines in all lung jordan but no diffuse B-lines no pleural effusions noted no significant consolidations Impression: Normal bilateral lung ultrasound Images were saved to permanent archive The study was technically adequate CPT 60642-37 This study was performed by sd, and I personally interpreted all images/videos. Based on my clinical judgement, these images were adequate and did not necessitate further imaging. Critical Care Critical Care Time Critical Care Time: Yes Attestation: On 05/06/23, the high probability of a clinically significant, sudden or life threatening deterioration of the following system(s) required my full and direct attention, intervention and personal management. The time I documented below is in addition to time spent performing reported procedures but includes the following listed in this critical care notation. Total Time Total Critical Care Time: 35 Medical Decision Making [place] Inquiry Pt receiving controlled substance: No Vital Signs Vital Signs: 05/06/23 13:25 05/06/23 14:01 05/06/23 14:30 Temperature 97.9 F Temperature Source Oral Pulse Rate 74 70 Pulse Rate [Right] 107 H Respiratory Rate 36 H 25 H 25 H Blood Pressure 125/56 L 122/52 L Blood Pressure [Right Arm] 157/53 H Blood Pressure Mean 73 70 Blood Pressure Mean [Right Arm] 87 Blood Pressure Source [Right Arm] Automatic Cuff 02 Sat by Pulse Oximetry 97 99 98 Oxygen Delivery Method Nasal Cannula Oxygen Flow Rate (LPM) 3 05/06/23 15:00 Temperature Temperature Source Pulse Rate 77 Pulse Rate [Right] Respiratory Rate 25 H Blood Pressure 133/62 Blood Pressure [Right Arm] Blood Pressure Mean 85 Blood Pressure Mean [Right Arm] Blood Pressure Source [Right Arm] 02 Sat by Pulse Oximetry 98 Oxygen Delivery Method Oxygen Flow Rate (LPM) Lab Data Lab results reviewed: Yes I reviewed the patient's lab results. Labs: Lab Results 05/06/23 13:41: WBC 5.7, RBC 2.08 L, Hgb 4.9 L*, Hct 16.8 L*, MCV 80.8 L, MCH 23.6 L, MCHC 29.3 L, RDW 22.8 H, Plt Count 201, MPV 9.0, Neut % (Auto) 71.0, Lymph % (Auto) 18.2, [place] % (Auto) 7.1, Eos % (Auto) 3.0, Baso % (Auto) 0.6, Neut # (Auto) 4.1, Lymph # (Auto) 1.0, [place] # (Auto) 0.4, Eos # (Auto) 0.2, Baso # (Auto) 0.0, PT 14.6 H, INR 1.38 H, D-Dimer < 0.25, Sodium 133 L, Potassium 3.9, Chloride 102, Carbon Dioxide 23, Anion Gap 11.9, BUN 8, Creatinine 0.90, Estimated Creat Clear 79, Estimated GFR 62, Est GFR ( Amer) 76, Glucose 114 H, Calcium 8.5, Total Bilirubin 0.4, AST 36, ALT 31, Alkaline Phosphatase 101, Troponin I 0.02, NT-Pro-B Natriuret Pep 1210 H, Total Protein 6.2 L, Albumin 3.6, Globulin 2.6, Albumin/Globulin Ratio 1.4 05/06/23 14:55: Crossmatch ([facility]) See Detail 05/06/23 15:19: Stool Occult Blood Positive A 05/06/23 13:41 05/06/23 13:41 Response Orders (Tests/Meds): ED MEDICATIONS Generic Name Dose Route Start Last Admin Trade Name Freq PRN Reason Stop Dose Admin Sodium Chloride 250 mls @ 25 mls/hr 05/06/23 14:30 Sod Chlor 0.9% 250ml Bag IV 05/07/23 14:29 .Q10H SHRUTHI Sodium Chloride 10 ml 05/06/23 14:43 Sodium Chloride 0.9% 10ml Syr (Rad Only) IV 06/05/23 14:42 NEEDED PRN Maintain IV Site Discontinued Medications Generic Name Dose Route Start Last Admin Trade Name Freq PRN Reason Stop Dose Admin Iopamidol 85 ml 05/06/23 14:43 05/06/23 14:43 Iopamidol-370 (76%);100ml Bottle IV 05/06/23 14:44 85 ml ONCE ONE Administration Sodium Chloride 50 ml 05/06/23 14:43 05/06/23 14:43 0.9 % Sodium Chloride 50 Ml Vial IV 05/06/23 14:44 50 ml ONCE ONE Administration ORDERS Category Date Time Status Transfuse RBC's [Red Blood Cells] Stat BBK 05/06/23 14:55 Received Type and Screen Stat BBK 05/06/23 14:[address] angio chest PE protocol Stat Cat Scan 05/06/23 14:24 Taken POCUS Point of Care (ER Only) Stat Exams 05/06/23 14:16 Ordered XR chest portable Stat Exams 05/06/23 13:56 Completed BNP [Brain Natriuretic Peptide] Stat Lab 05/06/23 13:41 Completed Complete Blood Count Auto Diff Stat Lab 05/06/23 13:41 Completed Comprehensive Metabolic Panel Stat Lab 05/06/23 13:41 Completed D-Dimer Stat Lab 05/06/23 13:41 Completed Occult Blood,Stool Stat Lab 05/06/23 15:19 Completed PT/INR [Prothrombin Time INR] Stat Lab 05/06/23 13:41 Completed Rapid PCR Covid and Flu A/B Stat Lab 05/06/23 14:23 Ordered Trop I [Troponin I] Stat Lab 05/06/23 13:41 Completed Troponin I Q3H Lab 05/06/23 17:00 Ordered Troponin I Q3H Lab 05/06/23 20:00 Ordered ECG Data Tracing #1: Attestation: I reviewed this ECG and interpreted as documented below: ECG Narrative: Ventricular rate of 102 sinus tachycardia there is a first-degree AV block with a MN interval of 212 normal axis sinus arrhythmia no acute ischemic changes noted no ST depressions or elevations nonspecific there is infrequent supraventricular premature beats MDM Narrative Medical Decision Narrative: This is a 68-year-old female presents today with dyspnea concerning for possible heart failure versus pulmonary embolism versus pneumonia etc. However her H&H came back significantly altered with a hemoglobin of 4.8. This is significantly lower than has been at her baseline. She is on Coumadin for atrial fibrillation but has missed a few doses her INR is only 1.4. She was unaware of the fact that she was having any melena after my rectal exam showed obvious melena which was heme positive. Therefore the diagnosis is an upper GI bleed her shortness of breath is likely secondary to oxygen supply/demand mismatch. I did a limited bedside ultrasound of her heart and lungs after chest x-ray showed possible pneumonia versus interstitial edema on my interpretation. The ultrasound was equivocal. Subsequently I got a CT scan to try to evaluate for further cardiopulmonary pathology but this was unremarkable on my personal interpretation not demonstrating any significant pneumonia or edema. In retrospect with the patient's workup as stated above the dyspnea is likely associated with the profound anemia. I discussed the case with Dr. Gamez who is on-call for general surgery who agreed to keep the patient at [facility] and subsequently spoke with Dr. Shelton who agreed for further evaluation and management and admission. Patient was given IV vitamin K I spoke with pharmacist on-call who will be dosing Kcentra to further reverse her Coumadin. This is technically a life-threatening bleed in the setting of anticoagulation. Patient was also crossed for 4 units and transfused 3 initiated in the ED these have not been completed yet. Dr. Nakul Shelton is aware of all of this and will admit the patient for further evaluation and management.
[2023-05-06 15:26] LABS: Occult Blood,Stool Positive (Negative)
--- NOTE | 2023-05-06 15:27 | PC.NURSE ---
Dr Burt speaking to Dr Shelton
--- NOTE | 2023-05-06 15:33 | PC.NURSE ---
Dr. Burt is s/w Dr. Shelton, agrees to admit. Dr. Gooden consulted for general surgery
[2023-05-06 15:41] LABS: Coronavirus 19, PCR Not Detected (NotDetected); Influenza A, PCR Not Detected (NotDetected); Influenza B, PCR Not Detected (NotDetected)
--- NOTE | 2023-05-06 15:54 | HMH.PHAINT1 ---
Pharmacy Intervention Comments: MEDICAITON RECONCILIATION COMPLETE USING EXTERNAL PHARMACY FILL HISTORY, COUMADIN CLINIC NOTE.
--- NOTE | 2023-05-06 15:55 | PC.NURSE ---
DR GRAHAM AT BEDSIDE
--- NOTE | 2023-05-06 16:00 | PC.NURSE ---
HEARING SPECIALIST NOTIFIED OF ADMISSION
--- NOTE | 2023-05-06 16:02 | PC.NURSE ---
Admissions notified of admit to room 207 for GI Bleed to . Acute.
--- NOTE | 2023-05-06 16:05 | P.CONS_ITS ---
History of Present Illness *Admission Date: 05/06/23 *Reason for visit:: GI bleed *History of present illness: This is a 68yo F seen in consultation after presenting the the ED with SOA. She was diagnosed with significant anemia (presumptive GI source). Please see HPI and MDM from ED evaluation forwarded below. Forwarded from ED evaluation: HPI narrative: Patient is a 68-year-old female with a history of atrial fibrillation on Coumadin who presents today with dyspnea. States that she has felt this way for the last several days she is convinced that she has pneumonia and was in fact convinced that her recent pneumonia vaccine caused her to feel this way. She denies any fevers or chills did have a runny nose a few days ago. States that she is profoundly dyspneic with any type of walking. Does have a history of diastolic heart dysfunction in the past. No lower extremity swelling or orthopnea or PND. She states she has not felt well over the last several days and has not taken her Coumadin for 1-1/2 doses. Medical Decision Narrative: This is a 68-year-old female presents today with dyspnea concerning for possible heart failure versus pulmonary embolism versus pneumonia etc. However her H&H came back significantly altered with a hemoglobin of 4.8. This is significantly lower than has been at her baseline. She is on Coumadin for atrial fibrillation but has missed a few doses her INR is only 1.4. She was unaware of the fact that she was having any melena after my rectal exam showed obvious melena which was heme positive. Therefore the diagnosis is an upper GI bleed her shortness of breath is likely secondary to oxygen supply/demand mismatch. I did a limited bedside ultrasound of her heart and lungs after chest x-ray showed possible pneumonia versus interstitial edema on my interpretation. The ultrasound was equivocal. Subsequently I got a CT scan to try to evaluate for further cardiopulmonary pathology but this was unremarkable on my personal interpretation not demonstrating any significant pneumonia or edema. In retrospect with the patient's workup as stated above the dyspnea is likely associated with the profound anemia. I discussed the case with Dr. Gamez who is on-call for general surgery who agreed to keep the patient at [place] and subsequently spoke with Dr. Shelton who agreed for further evaluation and management and admission. Patient was given IV vitamin K I spoke with pharmacist on-call who will be dosing Kcentra to further reverse her Coumadin. This is technically a life-threatening bleed in the setting of anticoagulation. Patient was also crossed for 4 units and transfused 3 initiated in the ED these have not been completed yet. Dr. Nakul Shelton is aware of all of this and will admit the patient for further evaluation and management. PFSH PFSH Disclaimer: The information contained in this section may have been updated after the patient was seen, as this information can be updated by other users. 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 Atrial fibrillation History of hypertension Surgical History History of bilateral tubal ligation Social History Smoking Status: Never smoker second hand exposure: No alcohol intake: never current occupational status: disabled Travel in the last 8 weeks: None household members: children housing: house current occupational exposures/hazards: No caffeine: Yes Meds Home Medications and Allergies Home Medications Medication Instructions Recorded Confirmed Type warfarin 5 mg tablet 2.5 mg PO MOFR Blood thinner, AFIB 02/24/18 05/06/23 History warfarin 5 mg tablet 5 mg PO SUTUWETHSA BLOOD THINNER, 12/23/22 05/06/23 History AFIB budesonide 160 mcg-glycopyr 9 2 puff inhalation BID Copd 05/06/23 05/06/23 History mcg-formot 4.8 mcg/actuation HFA inhaler ([employer]reztri [employer]osphere) gabapentin 100 mg capsule 100 mg PO TID Pain 05/06/23 05/06/23 History levalbuterol tartrate 45 2 puff inhalation Q4HP PRN 05/06/23 05/06/23 History mcg/actuation aerosol inhaler Shortness Of Breath losartan 50 mg tablet 50 mg PO DAILY High Blood Pressure 05/06/23 05/06/23 History triamcinolone acetonide 0.5 % 1 applic topical BIDP PRN Skin 05/06/23 05/06/23 History topical cream Condition New Prescriptions to Start Prescriptions: Allergies Allergy/AdvReac Type Severity Reaction Status Date / Time No Known Allergies Allergy Verified 03/11/22 09:12 Exam (Inpt) Vital signs and Labs for Last 24 Hours: Temp Pulse Resp BP Pulse Ox O2 Del Method O2 Flow Rate 97.9 F 77 25 H 133/62 98 Nasal Cannula 3 05/06/23 13:25 05/06/23 15:00 05/06/23 15:00 05/06/23 15:00 05/06/23 15:00 05/06/23 13:25 05/06/23 13:25 Laboratory Results - last 24 hr 05/06/23 13:41: WBC 5.7, RBC 2.08 L, Hgb 4.9 L*, Hct 16.8 L*, MCV 80.8 L, MCH 23.6 L, MCHC 29.3 L, RDW 22.8 H, Plt Count 201, MPV 9.0, Neut % (Auto) 71.0, Lymph % (Auto) 18.2, [place] % (Auto) 7.1, Eos % (Auto) 3.0, Baso % (Auto) 0.6, Neut # (Auto) 4.1, Lymph # (Auto) 1.0, [place] # (Auto) 0.4, Eos # (Auto) 0.2, Baso # (Auto) 0.0, PT 14.6 H, INR 1.38 H, D-Dimer < 0.25, Sodium 133 L, Potassium 3.9, Chloride 102, Carbon Dioxide 23, Anion Gap 11.9, BUN 8, Creatinine 0.90, Estimated Creat Clear 79, Estimated GFR 62, Est GFR ( Amer) 76, Glucose 114 H, Calcium 8.5, Total Bilirubin 0.4, AST 36, ALT 31, Alkaline Phosphatase 101, Troponin I 0.02, NT-Pro-B Natriuret Pep 1210 H, Total Protein 6.2 L, Albumin 3.6, Globulin 2.6, Albumin/Globulin Ratio 1.4 05/06/23 14:55: Crossmatch ([facility]) See Detail 05/06/23 15:19: Stool Occult Blood Positive A I & O for Labs for Last 24 Hours: Intake & Output 05/04/23 05/05/23 05/06/23 05/07/23 11:59 11:59 11:59 11:59 Weight 202 lb Constitutional: mild distress Respiratory: Absent respiratory distress Cardiac: Absent Tachycardia Results Labs 05/06/23 13:41 05/06/23 13:41 Labs: Laboratory Results - last 24 hr 05/06/23 13:41: WBC 5.7, RBC 2.08 L, Hgb 4.9 L*, Hct 16.8 L*, MCV 80.8 L, MCH 23.6 L, MCHC 29.3 L, RDW 22.8 H, Plt Count 201, MPV 9.0, Neut % (Auto) 71.0, Lymph % (Auto) 18.2, [place] % (Auto) 7.1, Eos % (Auto) 3.0, Baso % (Auto) 0.6, Neut # (Auto) 4.1, Lymph # (Auto) 1.0, [place] # (Auto) 0.4, Eos # (Auto) 0.2, Baso # (Auto) 0.0, PT 14.6 H, INR 1.38 H, D-Dimer < 0.25, Sodium 133 L, Potassium 3.9, Chloride 102, Carbon Dioxide 23, Anion Gap 11.9, BUN 8, Creatinine 0.90, Estimated Creat Clear 79, Estimated GFR 62, Est GFR ( Amer) 76, Glucose 114 H, Calcium 8.5, Total Bilirubin 0.4, AST 36, ALT 31, Alkaline Phosphatase 101, Troponin I 0.02, NT-Pro-B Natriuret Pep 1210 H, Total Protein 6.2 L, Albumin 3.6, Globulin 2.6, Albumin/Globulin Ratio 1.4 05/06/23 14:55: Crossmatch ([facility]) See Detail 05/06/23 15:19: Stool Occult Blood Positive A Assessment and Plan *Assessment and plan (1) Acute upper gastrointestinal bleeding: Status: Acute Category: Medical Code(s): K92.2 - Gastrointestinal hemorrhage, unspecified Plan: Tranfuse as planned (as needed) Serial H/H PPI NPO p MN for possible EGD in AM (will discuss with Dr. Fajardo) (2) Acute dyspnea: Status: Acute Category: Medical Code(s): R06.00 - Dyspnea, unspecified (3) Acute blood loss anemia: Status: Acute Category: Medical Code(s): D62 - Acute posthemorrhagic anemia
--- NOTE | 2023-05-06 16:34 | PC.NURSE ---
arrived by w/c from ED
[2023-05-06] MEDS: PHYTONADIONE 10 MG in 0.9 % SODIUM CHLORIDE 50 ML 100 MG IV (16:57)
[2023-05-06] MEDS: HUM PROTHROMBIN CPLX IV (16:57)
[2023-05-06] MEDS: [UNRECOGNIZED DRUG - OTHER] IV (16:57)
--- NOTE | 2023-05-06 17:10 | PC.NURSE ---
Addendum entered by Raul Evans RN 05/06/23 17:11: pt is aox4, able to make needs known to staff but is very [place]. currently requiring 3lnc for o2 support. purewick in place for elimination. Original Note: per blood bank pt crossmatch will require send out. dr barton notified.
[2023-05-06] MEDS: PANTOPRAZOLE SODIUM 80 MG in 0.9 % SODIUM CHLORIDE 100 ML 100 MG IV (17:15)
[2023-05-06 17:31] LABS: Troponin I 0.03 ng/ml (0.00-0.034)
--- NOTE | 2023-05-06 18:24 | P.HP_ITS ---
History of Present Illness *Admission Date: 05/06/23 *Reason for visit:: Weakness, shortness of breath *History of present illness: Ms. Carmona is a 68-year-old female with history of A-fib, COPD, chronic hypoxemic respiratory failure, neuropathy, on chronic anticoagulation. She presented to the ER because of several days of worsening shortness of breath and fatigue. She was convinced she had pneumonia as she gets this somewhat frequently. Has had increase her oxygen from her normal 3 L to 4 L. Has been fatigued just walking across the room. Denies increased swelling in her legs orthopnea. She has missed her Coumadin for the past 2 days. Denies any black stools or hematochezia or hematemesis. In the ER, workup remarkable for INR of 1.4, below her therapeutic range. Does state having a dark stool today after further questioning. Stool occult was positive. Found to be profoundly anemic with hemoglobin of 4.9. Kidney function normal, white cell count normal. Chest imaging with no acute focal consolidation. Patient initiated on Kcentra for reversal of her anticoagulation. Patient to be transfused. Medicine consulted for admission after consultation with surgery for further workup of suspected GI bleed. On evaluation after arriving to the floor, patient is very pale. On 4 L with sats in the low 90s. Alert and oriented but hard of hearing. Denies any chest pain, cough, nausea or vomiting. Family at bedside. Awaiting blood, crossmatch difficult due to antibodies. [facility] Disclaimer: The information contained in this section may have been updated after the patient was seen, as this information can be updated by other users. 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 History of hypertension Atrial fibrillation Surgical History History of bilateral tubal ligation Family History Family history of myocardial infarction Father Lung cancer Mother Social History Smoking Status: Former smoker tobacco type: cigarettes packs per day: 1 second hand exposure: No alcohol intake: never current occupational status: disabled Travel in the last 8 weeks: None household members: children housing: house current occupational exposures/hazards: No caffeine: Yes Review of Systems Review of Systems Review of systems (narrative): 14 point review of systems performed, pertinent positives and negatives as per HPI Meds Home Medications and Allergies Home Medications Medication Instructions Recorded Confirmed Type warfarin 5 mg tablet 2.5 mg PO MOFR Blood thinner, AFIB 02/24/18 05/06/23 History warfarin 5 mg tablet 5 mg PO SUTUWETHSA BLOOD THINNER, 12/23/22 05/06/23 History AFIB budesonide 160 mcg-glycopyr 9 2 puff inhalation BID Copd 05/06/23 05/06/23 History mcg-formot 4.8 mcg/actuation HFA inhaler (Breztri Aerosphere) gabapentin 100 mg capsule 100 mg PO TID Pain 05/06/23 05/06/23 History levalbuterol tartrate 45 2 puff inhalation Q4HP PRN 05/06/23 05/06/23 History mcg/actuation aerosol inhaler Shortness Of Breath losartan 50 mg tablet 50 mg PO DAILY High Blood Pressure 05/06/23 05/06/23 History triamcinolone acetonide 0.5 % 1 applic topical BIDP PRN Skin 05/06/23 05/06/23 History topical cream Condition New Prescriptions to Start Prescriptions: Allergies Allergy/AdvReac Type Severity Reaction Status Date / Time No Known Allergies Allergy Verified 05/06/23 18:02 Exam Data for Last 24 hours Vital signs and Labs for Last 24 Hours: Temp Pulse Resp BP Pulse Ox O2 Del Method O2 Flow Rate 97.6 F 86 19 119/72 99 Nasal Cannula 3 05/06/23 16:52 05/06/23 16:52 05/06/23 16:52 05/06/23 16:52 05/06/23 16:52 05/06/23 16:52 05/06/23 16:52 Laboratory Results - last 24 hr 05/06/23 13:41: WBC 5.7, RBC 2.08 L, Hgb 4.9 L*, Hct 16.8 L*, MCV 80.8 L, MCH 23.6 L, MCHC 29.3 L, RDW 22.8 H, Plt Count 201, MPV 9.0, Neut % (Auto) 71.0, Lymph % (Auto) 18.2, [place] % (Auto) 7.1, Eos % (Auto) 3.0, Baso % (Auto) 0.6, Neut # (Auto) 4.1, Lymph # (Auto) 1.0, [place] # (Auto) 0.4, Eos # (Auto) 0.2, Baso # (Auto) 0.0, PT 14.6 H, INR 1.38 H, D-Dimer < 0.25, Sodium 133 L, Potassium 3.9, Chloride 102, Carbon Dioxide 23, Anion Gap 11.9, BUN 8, Creatinine 0.90, Estimated Creat Clear 79, Estimated GFR 62, Est GFR ( Amer) 76, Glucose 114 H, Calcium 8.5, Total Bilirubin 0.4, AST 36, ALT 31, Alkaline Phosphatase 101, Troponin I 0.02, NT-Pro-B Natriuret Pep 1210 H, Total Protein 6.2 L, Albumin 3.6, Globulin 2.6, Albumin/Globulin Ratio 1.4, Blood Type Confirm O Positive 05/06/23 14:55: Blood Type O Positive, Antibody Screen Positive, Crossmatch (AHG) See Detail 05/06/23 15:19: Stool Occult Blood Positive A 05/06/23 15:36: SARS-CoV-2 (PCR) Not detected, Influenza A Untype (PCR) Not detected, Influenza Type B (PCR) Not detected 05/06/23 16:53: Troponin I 0.03 I & O for Last 24 hours: Intake & Output 05/03/23 05/04/23 05/05/23 05/06/23 23:59 23:59 23:59 23:59 Intake Total 470 / 470 Balance 470 / 470 Weight 94.347 kg Constitutional Constitutional: mild distress, obese, chronically ill appearing and cooperative *Routine HEENT Exam Head: Present normocephalic Eye: Present EOMI and PERRL ENT: Present mucous membranes moist *Routine Neck Exam Neck: Present supple; Absent lymphadenopathy *Routine Respiratory Exam Respiratory: Present accessory muscle use, prolonged expiratory phase, crackles (ASIS) and diminished air movement; Absent rhonchi or wheezes *Routine Cardiovascular Exam Cardiovascular: Present murmur and irregularly irregular *Routine Abdominal Exam Abdominal: Present soft and normoactive bowel sounds; Absent tenderness *Routine Rectal Exam Rectal:: deferred *Routine Genitalia Exam Genitalia:: deferred *Routine Extremities Exam Extremities: Absent cyanosis, clubbing or edema *Routine Skin Exam Skin: Present pallor and warm; Absent rash *Routine Neurological Exam Neurological: Present alert, oriented X3 and moving all extremities; Absent altered mental status Assessment and Plan *Assessment and plan (1) Acute upper gastrointestinal bleeding: Status: Acute Category: Medical Code(s): K92.2 - Gastrointestinal hemorrhage, unspecified (2) Acute blood loss anemia: Status: Acute Category: Medical Code(s): D62 - Acute posthemorrhagic anemia (3) Atrial fibrillation: Status: Acute Category: Medical Code(s): I48.91 - Unspecified atrial fibrillation (4) Tobacco use: Status: Chronic Category: Social Hx Code(s): Z72.0 - Tobacco use (5) Chronic anticoagulation: Status: Acute Category: Medical Code(s): Z79.01 - supervisor intermediates (current) use of anticoagulants Plan 68-year-old female with COPD, oxygen dependence, chronic anticoagulation, A-fib. Presents with worsening shortness of breath and fatigue. Workup in the ER concerning for GI bleed and blood loss anemia. Discussed case with the ER, request admission after consultation with surgery. Patient needing transfusion and further monitoring. Medicine agreed to admit. Patient will be n.p.o. at midnight for scope in the morning. Awaiting crossmatch for transfusion. Necessitating close monitoring inpatient management. Problems addressed as follows: Acute blood loss anemia GI bleed Hypercoagulability -Patient with anemia due to blood loss. Positive stool occult. Case discussed with surgery, planning on EGD in the morning. Hemoglobin 4.9. Awaiting transfusion, will transfuse 2 units packed red blood cells. Hemoglobin transfusion threshold of less than 7. Lasix 40 mg IV x 1 between units to decrease risk for pulmonary edema and overload. Repeat H&H 2 hours after 2 units, if still below 7 will administer third unit. -CBC, CMP, magnesium ordered for the morning. Kidney function and electrolytes stable. Sodium 133, potassium 3.9, BUN/creatinine 8 and 0.9 respectively. -Platelets normal at 200. White cell count 5.7. -Chest imaging personally reviewed, low concern for pneumonia at this time. -Protonix 80 mg IV x 1 on admission. Will continue 40 mg IV twice daily -Initiate Cytotec 200 mg 4 times a day, patient reports taking NSAIDs multiple times a week, likely culprit in irritation and blood. -Reversal of anticoagulation, INR 1.4. 1 dose of Lokelma administered. Holding warfarin. Chronic hypoxemic respiratory failure due to COPD -Supplemental oxygen as needed, goal sats greater 90%. Currently on 4 L. Baseline 3 L. -Continue home breathing regimen with oral every 4 hours as needed, Breztri 2 puffs twice daily. Hypertension: Blood pressure within normal range at this time, given anemia, will hold on antihypertensives. Allow for permissive hypertension. Holding home losartan Neuropathy: Continue home gabapentin 100 mg 3 times a day Full code Clear liquid diet, n.p.o. at midnight Holding anticoagulation in the setting of profound anemia and GI bleed
[2023-05-06] MEDS: miSOPROStoL 200 MCG TABLET PO (18:45)
--- NOTE | 2023-05-06 19:31 | PC.NURSE ---
PATIENT C/O BAD MID UPPER BACK ACHE INTERMITTANT CHRONIC, SAYS SHE NEEDS HER LIDOCAINE PATCH. RATES PAIN 09/06. ENDY Davis N.Prosper. NOTIFIED
--- NOTE | 2023-05-06 20:54 | PC.NURSE ---
pantoprozole granuals and lidoderm patches not available. ENDY DavisN.P. NOTIFIED. Patient requesting pain med for back pain. requested iv protonix. awaiting orders.
[2023-05-06] MEDS: GABAPENTIN 100MG CAPSULE 200 MG PO (20:58)
[2023-05-06 21:12] LABS: Troponin I 0.02 ng/ml (0.00-0.034)
[2023-05-06] MEDS: PANTOPRAZOLE 40MG VIAL 40 MG IV (21:20)
[2023-05-07] VITALS (22 sets, daily range): BP systolic 107–138; BP diastolic 58–77; PULSE 68–86; RESP 14–22; TEMP 36.7–37.3; O2SAT 94–99; BMI 336227.6
[2023-05-07] MEDS: miSOPROStoL 200 MCG TABLET PO ×4 (02:34→20:51)
--- NOTE | 2023-05-07 04:36 | PC.NURSE ---
PRBCs HAVE NOT ARRIVED YET. PATIENT COMPLAINED OF UPPER MID BACKACHE 7/10 EARLY IN THE SHIFT. SAYS THIS IS CHRONIC PROBLEM. GABAPENTIN WAS INCREASED TO 200 MG WHICH SEEMED TO BE EFFECTIVE. NO FURTHER COMPLAINTS OF PAIN. NO RECTAL BLEEDING OR HEMATEMESIS REPORTED. NO C/O N/V. HAS BEEN NPO SINCE WI FOR PROCEDURE.
[2023-05-07 07:39] LABS: Alanine Aminotransferase 26 U/L (12-78); Albumin Level 3.4 g/dl (3.5-5.0); Albumin/Globulin Ratio 1.4 (1.1-1.8); Alkaline Phosphatase 91 U/L (38-126); Anion Gap 11.7 mEq/L (5-15); Aspartate Amino Transferase 30 U/L (14-36); Bilirubin,Total 0.4 mg/dl (0.2-1.3); Blood Urea Nitrogen 8 mg/dl (7-17); Calcium 8.2 mg/dl (8.4-10.2); Carbon Dioxide 26 mmol/L (22.0-30.0); Chloride 100 mmol/L (98-107); Creatinine Clearance Estimated 81 mL/min (50-200); Estimated Glomerular Filt Rate 72 ml/min (>60); GFR (African American) 87 ML/MIN (>60); Globulin 2.5 g/dL (1.3-3.2); Glucose 98 mg/dl (74-100); Magnesium 2.1 mg/dl (1.6-2.3); Potassium 3.7 mmoL/L (3.5-5.1); Sodium 134 mmol/L (136-145); Total Protein,Serum 5.9 g/dl (6.3-8.2)
[2023-05-07 07:47] LABS: Basophils % 0.5 % (0.1-2.0); Eosinophils # 0.2 K/mm3 (0.0-0.4); Lymphocytes # 0.9 K/mm3 (0.7-4.5); Lymphocytes % 23.7 % (10-50); Mean Corpuscular HGB Conc 29.7 g/dL (31.8-35.4); Mean Corpuscular Hemoglobin 23.8 pg (27.0-31.2); Mean Platelet Volume 10.3 fl (7.4-10.4); Monocytes # 0.4 K/mm3 (0.1-1.0); Monocytes % 10.4 % (1.7-9.3); Neutrophils # 2.4 K/mm3 (1.8-7.8); Neutrophils % 61.3 % (37.0-80.0); Platelet Count 219 K/mm3 (142-424); Red Blood Count 2.12 M/mm3 (4.20-5.40); Red Cell Distribution Width 22.6 % (11.5-17.5); White Blood Count 3.9 K/mm3 (4.8-10.8)
[2023-05-07 07:53] LABS: Hematocrit 16.9 % (37.0-47.0)
[2023-05-07] MEDS: GABAPENTIN 100MG CAPSULE 200 MG PO ×3 (09:05→20:51)
[2023-05-07] MEDS: PANTOPRAZOLE 40MG VIAL 40 MG IV ×2 (09:05→20:51)
[2023-05-07] MEDS: FUROSEMIDE 40MG/4ML VIAL 40 MG IV (09:57)
--- NOTE | 2023-05-07 12:54 | EXP.SURG.PN ---
Subjective Patient reports: no new complaints Narrative: No bloody BMs overnight. Still feeling SOA Exam Data for Last 24 hours Vital signs and Labs for Last 24 Hours: Temp Pulse Resp BP Pulse Ox O2 Del Method O2 Flow Rate 98.9 F 80 16 109/63 L 95 Nasal Cannula 2 05/07/23 12:17 05/07/23 12:17 05/07/23 12:17 05/07/23 12:17 05/07/23 12:17 05/07/23 09:00 05/07/23 09:00 Laboratory Results - last 24 hr 05/06/23 13:41: WBC 5.7, RBC 2.08 L, Hgb 4.9 L*, Hct 16.8 L*, MCV 80.8 L, MCH 23.6 L, MCHC 29.3 L, RDW 22.8 H, Plt Count 201, MPV 9.0, Neut % (Auto) 71.0, Lymph % (Auto) 18.2, [place] % (Auto) 7.1, Eos % (Auto) 3.0, Baso % (Auto) 0.6, Neut # (Auto) 4.1, Lymph # (Auto) 1.0, [place] # (Auto) 0.4, Eos # (Auto) 0.2, Baso # (Auto) 0.0, PT 14.6 H, INR 1.38 H, D-Dimer < 0.25, Sodium 133 L, Potassium 3.9, Chloride 102, Carbon Dioxide 23, Anion Gap 11.9, BUN 8, Creatinine 0.90, Estimated Creat Clear 79, Estimated GFR 62, Est GFR ( Amer) 76, Glucose 114 H, Calcium 8.5, Total Bilirubin 0.4, AST 36, ALT 31, Alkaline Phosphatase 101, Troponin I 0.02, NT-Pro-B Natriuret Pep 1210 H, Total Protein 6.2 L, Albumin 3.6, Globulin 2.6, Albumin/Globulin Ratio 1.4, Blood Type Confirm O Positive 05/06/23 14:55: Blood Type O Positive, Antibody Screen Positive, Antibody Identification See Comments, Crossmatch (AHG) See Detail 05/06/23 15:19: Stool Occult Blood Positive A 05/06/23 15:36: SARS-CoV-2 (PCR) Not detected, Influenza A Untype (PCR) Not detected, Influenza Type B (PCR) Not detected 05/06/23 16:53: Troponin I 0.03 05/06/23 20:43: Troponin I 0.02 05/07/23 06:25: WBC 3.9 L D, RBC 2.12 L, Hgb 5.0 L*, Hct 16.9 L*, MCV 80.0 L, MCH 23.8 L, MCHC 29.7 L, RDW 22.6 H, Plt Count 219, MPV 10.3, Neut % (Auto) 61.3, Lymph % (Auto) 23.7, [place] % (Auto) 10.4 H, Eos % (Auto) 4.0, Baso % (Auto) 0.5, Neut # (Auto) 2.4, Lymph # (Auto) 0.9, [place] # (Auto) 0.4, Eos # (Auto) 0.2, Baso # (Auto) 0.0, Sodium 134 L, Potassium 3.7, Chloride 100, Carbon Dioxide 26, Anion Gap 11.7, BUN 8, Creatinine 0.80, Estimated Creat Clear 81, Estimated GFR 72, Est GFR ( Amer) 87, Glucose 98, Calcium 8.2 L, Magnesium 2.1, Total Bilirubin 0.4, AST 30, ALT 26, Alkaline Phosphatase 91, Total Protein 5.9 L, Albumin 3.4 L, Globulin 2.5, Albumin/Globulin Ratio 1.4 I & O for Last 24 hours: Intake & Output 05/04/23 05/05/23 05/06/23 05/07/23 23:59 23:59 23:59 23:59 Intake Total 470 / 710 240.63 / 240.63 Output Total 1100 / 1100 1700 / 1700 Balance -630 / -390 -1459.37 / -1459.37 Weight 208 lb 208 lb 5.389 oz *Routine Abdominal Exam Abdominal: Present soft; Absent tenderness or distended Progress Note: A&P Assessment and plan (1) Acute upper gastrointestinal bleeding: Status: Acute Assessment and plan: Stable GI bleed overnight. I suspect she has an UGI source given her history. The transfusion was a little delayed by crossmatch but she is stable. Recommend EGD in the AM as she is stable. Discussed with patient and family and they agree with the plan. (2) Acute blood loss anemia: Status: Acute (3) Atrial fibrillation: Status: Acute (4) Tobacco use: Status: Chronic (5) Chronic anticoagulation: Status: Acute
--- NOTE | 2023-05-07 15:31 | P.PN_ITS ---
Subjective *Date: 05/07/23 *Time: 15:31 Interval history: Feeling a little more energetic today after getting blood. Was examined after lunch as her blood did not arrive till first thing this morning. Hemoglobin was 5 this morning prior to transfusion. Improved oxygen requirement, down to 2 L. Having significant gas. No nausea or vomiting. Afebrile. Blood pressure acceptable. Medical Exam Vital signs and Labs for Last 24 Hours: Vital Signs Temp Pulse Pulse Resp BP BP Pulse Ox 05/07/23 13:00 05/07/23 12:17 98.9 F 80 16 109/63 L 95 05/07/23 11:25 98.5 F 77 18 116/60 97 05/07/23 11:10 98.9 F 72 18 109/64 L 96 05/07/23 11:00 05/07/23 10:55 98.6 F 70 18 117/62 95 05/07/23 10:40 98.6 F 78 16 121/62 97 05/07/23 10:35 99.1 F 77 18 120/62 95 05/07/23 10:30 98.7 F 86 16 127/67 94 L 05/07/23 10:25 98.9 F 86 18 107/77 L 94 L 05/07/23 10:20 98.9 F 76 18 123/70 97 05/07/23 09:55 98.8 F 76 18 138/70 98 05/07/23 09:50 98.9 F 76 18 131/65 98 05/07/23 09:00 05/07/23 08:50 98.5 F 68 18 124/63 97 05/07/23 08:35 98.7 F 71 18 122/66 98 05/07/23 08:20 98.5 F 74 18 124/61 97 05/07/23 08:05 98.9 F 72 16 115/70 99 05/07/23 08:00 05/07/23 08:00 98.4 F 05/07/23 08:00 98.9 F 75 18 124/64 98 05/07/23 07:55 99.1 F 75 18 124/62 96 05/07/23 07:50 99.1 F 72 16 123/62 98 05/07/23 07:40 98.7 F 74 18 121/65 98 05/07/23 06:31 05/07/23 05:00 03/09/24 03:51 98.1 F 71 14 114/58 L 99 05/07/23 03:00 05/07/23 01:00 05/06/23 23:00 05/06/23 21:00 05/06/23 21:00 98.6 F 78 16 126/71 99 05/06/23 20:00 99 05/06/23 16:52 97.6 F 86 19 119/72 99 05/06/23 16:31 97.6 F 86 18 119/72 O2 Del Method O2 Flow Rate 05/07/23 13:00 Nasal Cannula 2 05/07/23 12:17 05/07/23 11:25 05/07/23 11:10 05/07/23 11:00 Nasal Cannula 2 05/07/23 10:55 05/07/23 10:40 05/07/23 10:35 05/07/23 10:30 05/07/23 10:25 05/07/23 10:20 05/07/23 09:55 05/07/23 09:50 05/07/23 09:00 Nasal Cannula 2 05/07/23 08:50 05/07/23 08:35 05/07/23 08:20 05/07/23 08:05 05/07/23 08:00 Nasal Cannula 2 05/07/23 08:00 05/07/23 08:00 05/07/23 07:55 05/07/23 07:50 05/07/23 07:40 05/07/23 06:31 Nasal Cannula 3 05/07/23 05:00 Nasal Cannula 3 05/07/23 03:51 Nasal Cannula 3 05/07/23 03:00 Nasal Cannula 3 05/07/23 01:00 Nasal Cannula 3 05/06/23 23:00 Nasal Cannula 3 05/06/23 21:00 Nasal Cannula 3 05/06/23 21:00 Nasal Cannula 3 05/06/23 20:00 Nasal Cannula 3 05/06/23 16:52 Nasal Cannula 3 05/06/23 16:31 Nasal Cannula 3 Intake and Output 05/06/23 05/07/23 05/07/23 23:59 07:59 15:59 Intake Total 470 / 710 240 / 240.63 0.63 / 240.63 Output Total 1100 / 1100 1700 / 1700 0 / 1700 Balance -630 / -390 -1460 / -1459.37 0.63 / -1459.37 Intake: Intake, Oral Amount 470 / 710 240 / 240 Intake (Blood Product) Amt 0 / 0.63 0.63 / 0.63 Red Blood Cells Unit 0 / 0 0 / 0 [id number] Red Blood Cells Unit 0.63 / 0.63 [id number] Output: Output, Urine Amount 1100 / 1100 1700 / 1700 0 / 1700 Other: Number of Voids 0 Number of Unmeasured Voids 1 1 Weight 94.347 kg 94.5 kg Patient Weight 05/07/23 23:59 Weight 94.5 kg Laboratory Results - last 24 hr 05/06/23 13:41: Blood Type Confirm O Positive 05/06/23 14:55: Blood Type O Positive, Antibody Screen Positive, Antibody Identification See Comments, Crossmatch (AHG) See Detail 05/06/23 15:36: SARS-CoV-2 (PCR) Not detected, Influenza A Untype (PCR) Not d etected, Influenza Type B (PCR) Not detected 05/06/23 16:53: Troponin I 0.03 05/06/23 20:43: Troponin I 0.02 05/07/23 06:25: WBC 3.9 L D, RBC 2.12 L, Hgb 5.0 L*, Hct 16.9 L*, MCV 80.0 L, MCH 23.8 L, MCHC 29.7 L, RDW 22.6 H, Plt Count 219, MPV 10.3, Neut % (Auto) 61.3, Lymph % (Auto) 23.7, [place] % (Auto) 10.4 H, Eos % (Auto) 4.0, Baso % (Auto) 0.5, Neut # (Auto) 2.4, Lymph # (Auto) 0.9, [place] # (Auto) 0.4, Eos # (Auto) 0.2, Baso # (Auto) 0.0, Sodium 134 L, Potassium 3.7, Chloride 100, Carbon Dioxide 26, Anion Gap 11.7, BUN 8, Creatinine 0.80, Estimated Creat Clear 81, Estimated GFR 72, Est GFR ( Amer) 87, Glucose 98, Calcium 8.2 L, Magnesium 2.1, Total Bilirubin 0.4, AST 30, ALT 26, Alkaline Phosphatase 91, Total Protein 5.9 L, Albumin 3.4 L, Globulin 2.5, Albumin/Globulin Ratio 1.4 I & O for Labs for Last 24 Hours: Intake & Output 05/04/23 05/05/23 05/06/23 05/07/23 23:59 23:59 23:59 23:59 Intake Total 470 / 710 240.63 / 240.63 Output Total 1100 / 1100 1700 / 1700 Balance -630 / -390 -1459.37 / -1459.37 Weight 94.347 kg 94.5 kg Constitutional: Present no acute distress, obese and chronically ill appearing Head: Present atraumatic and normocephalic ENT: Present normal exam Neck: Present normal inspection Respiratory: Present prolonged expiratory phase, wheezes, diminished air movement and normal respiratory effort; Absent rhonchi or crackles Cardiac: Present Reg Rate and Rhythm GI: Present soft, distention and normal bowel sounds; Absent tenderness Extremities: Present normal inspection and full ROM Skin: Present intact and pallor (Though improved from yesterday); Absent erythema Neuro: Present Grossly Intact, alert, awake, oriented x 3 and moves all extremi ties Assessment and Plan *Assessment and plan (1) Acute upper gastrointestinal bleeding: Status: Acute Category: Medical Code(s): K92.2 - Gastrointestinal hemorrhage, unspecified (2) Acute blood loss anemia: Status: Acute Category: Medical Code(s): D62 - Acute posthemorrhagic anemia (3) Atrial fibrillation: Status: Acute Category: Medical Code(s): I48.91 - Unspecified atrial fibrillation (4) Tobacco use: Status: Chronic Category: Social Hx Code(s): Z72.0 - Tobacco use (5) Chronic anticoagulation: Status: Acute Category: Medical Code(s): Z79.01 - 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 Presents with worsening shortness of breath and fatigue. Workup in the ER concerning for GI bleed and blood loss anemia. Discussed case with the ER, request admission after consultation with surgery. Patient needing transfusion and further monitoring. Medicine agreed to admit. Transfused this morning. Awaiting post H&H. Patient will be n.p.o. at midnight for scope in the morning. Necessitating close monitoring inpatient management. Problems addressed as follows: Acute blood loss anemia GI bleed Hypercoagulability -Patient with anemia due to blood loss. Positive stool occult. Case discussed with surgery, planning on EGD in the morning. Hemoglobin 4.9 on admission, 5.0 this morning. Status post 2 units transfusion today. Repeat H&H pending. -Discussed case with surgery today, will await transfusion and improvement in hemoglobin prior to scoping. Plan to take patient for scope in the morning. - Hemoglobin transfusion threshold of less than 7. Lasix 40 mg IV x 1 between units to decrease risk for pulmonary edema and overload -CBC, CMP, magnesium ordered for the morning. Kidney function and electrolytes stable. Sodium 134, potassium 3.7, BUN/creatinine 8 and 0.8 respectively. -Platelets normal at 219. White cell count 3.9. -Protonix 40 mg IV twice daily -Cytotec 200 mg 4 times a day, patient reports taking NSAIDs multiple times a week, likely culprit in irritation and blood. -Repeat INR pending Chronic hypoxemic respiratory failure due to COPD -Supplemental oxygen as needed, goal sats greater 90%. Currently on 2 L. Baseline 3 L. -Continue home breathing regimen with oral every 4 hours as needed, Breztri 2 puffs twice daily. Hypertension: Blood pressure within normal range at this time, given anemia, will hold on antihypertensives. Allow for permissive hypertension. Holding home losartan Neuropathy: Continue home gabapentin 100 mg 3 times a day Full code Clear liquid diet, n.p.o. at midnight Holding anticoagulation in the setting of profound anemia and GI bleed
[2023-05-07 15:38] LABS: Hematocrit 22.2 % (37.0-47.0)
[2023-05-07 15:40] LABS: Hemoglobin 7.5 g/dL (12.2-16.2)
--- NOTE | 2023-05-07 17:08 | PC.NURSE ---
PT RECEIVED 2 UNITS PRBCS THIS SHIFT. AOX4 BUT VERY [place]. CURRENTLY ON 2LNC AND TOLERATING WELL. PUREWICK IN PLACE FOR ELIMINATION. 1 BM PER BEDPAN THIS SHIFT. POST H/H REPORTED TO SURGEON STUD MASTER/MISTRESS Anahi MARTÍNEZ PER REQUEST WHO HAS PLANS FOR EGD MORNING OF 05/07. PT HAS TOLERATED LIQUID DIET WELL.
[2023-05-07] MEDS: IPRATROPIUM/ALBUTEROL 3 ML NEB IH ×2 (18:57→23:52)
[2023-05-07 19:08] LABS: Hematocrit 24.8 % (37.0-47.0); Hemoglobin 7.9 g/dL (12.2-16.2)
[2023-05-07 19:19] LABS: INR 1.03 (0.9-1.1); Prothrombin Time 11.1 seconds (10.1-12.5)
[2023-05-07] MEDS: LIDOCAINE 5% TRANSDERMAL PATCH 1 EACH TP (20:51)
[2023-05-07] MEDS: SODIUM CHLORIDE 0.9% 10ML VIAL 10 ML IV (20:51)
--- NOTE | 2023-05-07 21:05 | PC.NURSE ---
spoke with DR. Fajardo, general surgery - reported HGB 7.9 - he wants to continue to hold the other 2u of PRBC's and stated if HGB drops below 7.5 to give him a call, but otherwise its okay for the night.
[2023-05-07 23:48] LABS: Hematocrit 22.1 % (37.0-47.0)
[2023-05-07 23:50] LABS: Hemoglobin 7.1 g/dL (12.2-16.2)
[2023-05-08] VITALS (28 sets, daily range): BP systolic 110–137; BP diastolic 46–74; PULSE 64–91; RESP 16–21; TEMP 36.6–37.1; O2SAT 91–99; BMI 336939.2
[2023-05-08] MEDS: miSOPROStoL 200 MCG TABLET PO ×4 (01:52→20:00)
[2023-05-08 04:51] LABS: Hematocrit 22.1 % (37.0-47.0)
[2023-05-08 04:53] LABS: Hemoglobin 6.9 g/dL (12.2-16.2)
--- NOTE | 2023-05-08 06:46 | PC.NURSE ---
PT LEFT FLOOR TO GO TO SURGERY AT THIS TIME
--- NOTE | 2023-05-08 06:47 | PC.NURSE ---
PRBC infusion started at 0520. Patient just left floor at 0645 with PRBC still infusing, Tito Kelly RN PACU took over care at this time.
--- NOTE | 2023-05-08 07:09 | P.OP_ITS ---
Date of procedure: 05/08/23 Pre-op Diagnosis:: GI bleed Post-op Diagnosis:: Antral ulcers, multiple Procedure performed:: EGD Surgeon:: Zac Fajardo MD Test Engine Evaluator(s):: Enedelia Anesthesia: MAC Estimated blood loss (mL): 0 Clinical Note:: Ms. Carmona is a 68-year-old lady that presented with severe shortness of air. She was found to have melena and a hemoglobin below 5. She was transfused and her hemoglobin dropped again this morning. She was taken to the operating room for EGD. Operative findings:: Multiple antral ulcers and all levels of healing. No active bleeding. Operative note:: The patient was brought to the Endo suite. A brief surgical pause was performed and MAC anesthesia was administered. I began with a brief oropharyngeal exam which was normal. The gastroscope was inserted in the posterior oropharynx and esophagus intubated. Esophagus was normal up to the GE junction at 36 cm. She had a 2 cm sliding hiatal hernia. Stomach was entered below the hiatus. She had several antral ulcers at all levels of healing. No active bleeding. No blood in the stomach. Pylorus was intubated and was normal. Duodenum was no rmal up into the beginning of the third portion. Retroflex showed a small hiatal hernia. Air was withdrawn scope was withdrawn. Patient tolerated the procedure well was woke from anesthesia and transferred the PACU in stable condition. Photodocumentation was obtained. Condition: stable Disposition: PACU Complications:: None
--- NOTE | 2023-05-08 07:25 | SUR.OPER ---
1st unit finished at end of post op time 134/63 73 HR 95 3L NC 16 RR 98.1
--- NOTE | 2023-05-08 07:48 | PC.NURSE ---
SPOKE WITH DR ARREDONDO VIA TELEPHONE WHO GAVE V/O TO HOLD 4TH UNIT OF PRBCS AT THIS TIME.
[2023-05-08 09:00] LABS: Alanine Aminotransferase 25 U/L (12-78); Albumin Level 3.5 g/dl (3.5-5.0); Albumin/Globulin Ratio 1.4 (1.1-1.8); Alkaline Phosphatase 91 U/L (38-126); Anion Gap 9.3 mEq/L (5-15); Aspartate Amino Transferase 31 U/L (14-36); Bilirubin,Total 1.8 mg/dl (0.2-1.3); Blood Urea Nitrogen 8 mg/dl (7-17); Calcium 8.2 mg/dl (8.4-10.2); Carbon Dioxide 29 mmol/L (22.0-30.0); Chloride 96 mmol/L (98-107); Creatinine Clearance Estimated 82 mL/min (50-200); Estimated Glomerular Filt Rate 62 ml/min (>60); GFR (African American) 76 ML/MIN (>60); Globulin 2.5 g/dL (1.3-3.2); Glucose 98 mg/dl (74-100); Potassium 3.3 mmoL/L (3.5-5.1); Sodium 131 mmol/L (136-145)
[2023-05-08 09:01] LABS: Hematocrit 25.8 % (37.0-47.0)
[2023-05-08 09:02] LABS: INR 1.06 (0.9-1.1); Prothrombin Time 11.4 seconds (10.1-12.5)
[2023-05-08 09:14] LABS: Hemoglobin 8.4 g/dL (12.2-16.2)
[2023-05-08] MEDS: PANTOPRAZOLE 40MG VIAL 40 MG IV ×2 (09:36→20:52)
[2023-05-08] MEDS: GABAPENTIN 100MG CAPSULE 200 MG PO ×3 (09:36→20:52)
[2023-05-08] MEDS: IPRATROPIUM/ALBUTEROL 3 ML NEB IH ×3 (11:17→23:09)
[2023-05-08 11:40] LABS: Hematocrit 25.4 % (37.0-47.0); Hemoglobin 8.1 g/dL (12.2-16.2)
[2023-05-08] MEDS: KCl 10mEq/100ml 100 ML 100 MEQ IV ×2 (11:46→13:48)
[2023-05-08] MEDS: LIDOCAINE 5% TRANSDERMAL PATCH 1 EACH TP ×2 (12:50→20:00)
[2023-05-08] MEDS: ACETAMINOPHEN 325MG TAB 650 MG PO (12:50)
[2023-05-08] MEDS: HYDROCODONE/APAP 5/325 MG TABLET 1 TAB PO (13:48)
--- NOTE | 2023-05-08 15:48 | PC.NURSE ---
PT HAS DONE WELL TODAY. EGD THIS MORNING. DID C/O BACK PAIN LIDOCAINE PATCH ANT TYLENOL ADMIN WITH LITTLE EFFECTIVENESS. 5 MG NORCO ORDERED BY MD AND ADMIN. PT NOTED TO BE ASLEEP SHORTLY AFTER. CONTINUES ON 2LNC FOR O2 SUPPORT.
[2023-05-08] MEDS: SIMETHICONE 80MG CHEWABLE TABLET 80 MG PO (16:35)
--- NOTE | 2023-05-08 17:13 | P.PN_ITS ---
Subjective *Date: 05/08/23 *Time: 17:13 Interval history: Patient seen after EGD. EGD found multiple ulcers. No hernia and no active bleeding. Patient denies any chest pain or abdominal pain. Is complaining of back pain. On baseline 3 L oxygen requirement. Hemoglobin dropped this morning to 6.9 necessitating third unit for transfusion. Family at bedside. Alert and oriented x 3. Medical Exam Vital signs and Labs for Last 24 Hours: Vital Signs Temp Pulse Pulse Resp BP BP Pulse Ox 05/08/23 16:51 05/08/23 15:00 05/08/23 14:25 98.1 F 72 17 116/49 L 98 05/08/23 13:25 98.1 F 91 H 18 136/74 94 L 05/08/23 13:00 05/08/23 12:25 98.1 F 64 18 126/61 94 L 05/08/23 11:25 98.5 F 78 19 118/63 94 L 05/08/23 11:18 79 05/08/23 11:18 78 05/08/23 11:18 98 05/08/23 11:00 05/08/23 10:25 98.5 F 75 19 120/69 94 L 05/08/23 09:55 98.0 F 78 19 129/71 95 05/08/23 09:25 98.1 F 81 19 137/68 94 L 05/08/23 09:00 05/08/23 08:55 98.3 F 71 19 127/66 96 05/08/23 08:25 98.1 F 73 19 129/69 95 05/08/23 08:10 98.2 F 74 20 124/69 97 05/08/23 08:00 05/08/23 07:55 98.2 F 72 20 121/62 98 05/08/23 07:40 98.4 F 75 21 120/66 98 05/08/23 07:22 98.1 F 84 17 133/62 96 05/08/23 07:14 75 17 134/66 98 05/08/23 07:04 98 F 76 17 122/56 L 98 05/08/23 06:20 98.5 F 72 16 123/61 99 05/08/23 06:05 98.4 F 71 16 121/63 99 05/08/23 05:50 98.5 F 69 16 126/62 91 L 05/08/23 05:35 98.5 F 69 16 122/59 L 96 05/08/23 05:30 98.7 F 71 16 119/66 95 05/08/23 05:25 98.7 F 77 16 126/69 96 05/08/23 05:20 98.5 F 72 16 118/65 98 05/08/23 05:05 98.5 F 70 16 120/68 98 05/08/23 04:49 05/08/23 04:00 98 F 80 18 115/65 98 05/08/23 03:00 05/08/23 01:00 05/07/23 23:51 05/07/23 23:00 05/07/23 21:00 05/07/23 20:00 98.2 F 77 22 122/61 98 05/07/23 19:10 05/07/23 18:29 05/07/23 17:00 O2 Del Method O2 Flow Rate 05/08/23 16:51 Nasal Cannula 2 05/08/23 15:00 Nasal Cannula 2 05/08/23 14:25 Nasal Cannula 3 05/08/23 13:25 Nasal Cannula 3 05/08/23 13:00 Nasal Cannula 2 05/08/23 12:25 Nasal Cannula 2 05/08/23 11:25 Nasal Cannula 2 05/08/23 11:18 05/08/23 11:18 05/08/23 11:18 Nasal Cannula 2 05/08/23 11:00 Nasal Cannula 2 05/08/23 10:25 Nasal Cannula 2 05/08/23 09:55 Nasal Cannula 2 05/08/23 09:25 Nasal Cannula 2 05/08/23 09:00 Nasal Cannula 2 05/08/23 08:55 Nasal Cannula 2 05/08/23 08:25 Nasal Cannula 2 05/08/23 08:10 Nasal Cannula 2 05/08/23 08:00 Nasal Cannula 2 05/08/23 07:55 Nasal Cannula 2 05/08/23 07:40 Nasal Cannula 2 05/08/23 07:22 05/08/23 07:14 Nasal Cannula 3 05/08/23 07:04 Nasal Cannula 2 05/08/23 06:20 05/08/23 06:05 05/08/23 05:50 05/08/23 05:35 05/08/23 05:30 05/08/23 05:25 05/08/23 05:20 05/08/23 05:05 05/08/23 04:49 Nasal Cannula 2 05/08/23 04:00 Nasal Cannula 2 05/08/23 03:00 Nasal Cannula 2 05/08/23 01:00 Nasal Cannula 2 05/07/23 23:51 Nasal Cannula 2 05/07/23 23:00 Nasal Cannula 2 05/07/23 21:00 Nasal Cannula 2 05/07/23 20:00 Nasal Cannula 2 05/07/23 19:10 Nasal Cannula 2 05/07/23 18:29 Nasal Cannula 2 05/07/23 17:00 Nasal Cannula 2 Intake and Output 05/08/23 05/08/23 05/08/23 07:59 15:59 23:59 Intake Total 420 / 1099.39 250 / 1099.39 Output Total 850 / 1350 Balance 420 / -250.61 -600 / -250.61 Intake: Intake, Oral Amount 420 / 540 Infusion Intake 250 / 250 KCl 10mEq/100ml 100 ml @ 100 250 / 250 mls/hr IV Q1H [facility] Rx#:[id number] Intake (Blood Product) Amt Red Blood Cells Unit [id number] Output: Output, Urine Amount 850 / 1350 Other: Number of Voids Number of Unmeasured Voids Weight Patient Weight 05/09/23 00:59 Weight 94.7 kg Laboratory Results - last 24 hr 05/06/23 14:55: Blood Type O Positive, Antibody Screen Positive, Crossmatch (AHG) See Detail 05/07/23 18:45: Hgb 7.9 L, Hct 24.8 L, PT 11.1, INR 1.03 05/07/23 23:30: Hgb 7.1 L D, Hct 22.1 L 05/08/23 04:48: Hgb 6.9 L, Hct 22.1 L 05/08/23 08:26: Hgb 8.4 L D, Hct 25.8 L, PT 11.4, INR 1.06, Sodium 131 L, Potassium 3.3 L, Chloride 96 L, Carbon Dioxide 29, Anion Gap 9.3, BUN 8, Creatinine 0.90, Estimated Creat Clear 82, Estimated GFR 62, Est GFR ( Amer) 76, Glucose 98, Calcium 8.2 L, Total Bilirubin 1.8 H, AST 31, ALT 25, Alkaline Phosphatase 91, Total Protein 6.0 L, Albumin 3.5, Globulin 2.5, Albumin/Globulin Ratio 1.4 05/08/23 11:20: Hgb 8.1 L, Hct 25.4 L I & O for Labs for Last 24 Hours: Intake & Output 05/05/23 05/06/23 05/07/23 05/09/23 23:59 23:59 23:59 00:59 Intake Total 470 / 710 240.63 / 360.63 1099.39 / 1099.39 Output Total 1100 / 1100 2900 / 2900 1350 / 1350 Balance -630 / -390 -2659.37 / -2539.37 -250.61 / -250.61 Weight 94.347 kg 94.5 kg 94.7 kg Constitutional: Present no acute distress, obese and chronically ill appearing Head: Present atraumatic and normocephalic ENT: Present normal exam Neck: Present normal inspection Respiratory: Present prolonged expiratory phase, wheezes, diminished air movement and normal respiratory effort; Absent rhonchi or crackles Cardiac: Present Reg Rate and Rhythm GI: Present soft, distention and normal bowel sounds; Absent tenderness Extremities: Present normal inspection and full ROM Skin: Present intact and pallor (Though improved from yesterday); Absent erythema Neuro: Present Grossly Intact, alert, awake, oriented x 3 and moves all extremities Assessment and Plan *Assessment and plan (1) Acute upper gastrointestinal bleeding: Status: Acute Category: Medical Code(s): K92.2 - Gastrointestinal hemorrhage, unspecified (2) Peptic ulcer disease: Status: Acute Category: Medical Code(s): K27.9 - Peptic ulcer, site unspecified, unspecified as acute or chronic, without hemorrhage or perforation (3) Acute blood loss anemia: Status: Acute Category: Medical Code(s): D62 - Acute posthemorrhagic anemia (4) Atrial fibrillation: Status: Acute Category: Medical Code(s): I48.91 - Unspecified atrial fibrillation (5) Tobacco use: Status: Chronic Category: Social Hx Code(s): Z72.0 - Tobacco use (6) Chronic anticoagulation: Status: Acute Category: Medical Code(s): Z79.01 - intermediate designer (current) use of anticoagulants Plan 68-year-old female with COPD, oxygen dependence, chronic anticoagulation, A-fib. Presents with worsening shortness of breath and fatigue. Workup in the ER concerning for GI bleed and blood loss anemia. Discussed case with the ER, request admission after consultation with surgery. Patient needing transfusion and further monitoring. Medicine agreed to admit. Transfuse third unit this morning given hemoglobin of 6.9. Patient taken for EGD today. Found to have gastric ulcers, no active bleeding. Surgery continues to assist with care. Continues to require inpatient treatment monitoring overnight and repeat labs in the morning to make sure hemoglobin is stable. Problems addressed as follows: Acute blood loss anemia GI bleed Hypercoagulability -Patient with anemia due to blood loss. Positive stool occult. Case discussed with surgery, taken for EGD, found to have multiple ulcers, hiatal hernia, no active bleeding. Hemoglobin 6.9 this morning, transfused 1 unit, post H&H 8.4. Status post 3 units total since admission. - Hemoglobin transfusion threshold of less than 7 -CBC, CMP, magnesium ordered for the morning. Kidney function and electrolytes stable. Sodium 131, potassium 3.3. Will treat with 2 runs 10 mill equivalent potassium. BUN 8, creatinine 0.9. -Protonix 40 mg IV twice daily -Cytotec 200 mg 4 times a day, patient reports taking NSAIDs multiple times a week, likely culprit in irritation and blood. -Repeat INR 1, repeat level ordered for the morning. Consider resuming warfarin tomorrow Chronic hypoxemic respiratory failure due to COPD -Supplemental oxygen as needed, goal sats greater 90%. Currently on 3 L. Baseline 3 L. -Continue home breathing regimen with oral every 4 hours as needed, Breztri 2 puffs twice daily. Hypertension: Blood pressure within normal range at this time, given anemia, will hold on antihypertensives. Allow for permissive hypertension. Holding home losartan Neuropathy: Continue home gabapentin 100 mg 3 times a day Full code Clear liquid diet, n.p.o. at midnight Holding anticoagulation in the setting of profound anemia and GI bleed
[2023-05-08] MEDS: SODIUM CHLORIDE 0.9% 10ML VIAL 10 ML IV (20:52)
[2023-05-09] MEDS: miSOPROStoL 200 MCG TABLET PO ×2 (00:30→07:43)
[2023-05-09 04:00] VITALS: BP 107/43; PULSE 75; RESP 16; TEMP 37.2; O2SAT 97; BMI 33.5
[2023-05-09 06:07] VITALS: PULSE 85; PULSE 88; O2SAT 97
[2023-05-09] MEDS: IPRATROPIUM/ALBUTEROL 3 ML NEB IH ×2 (06:07→12:02)
--- NOTE | 2023-05-09 06:57 | EXP.SURG.PN ---
Subjective Patient reports: no new complaints and feels better Exam Data for Last 24 hours Vital signs and Labs for Last 24 Hours: Temp Pulse Resp BP Pulse Ox O2 Del Method O2 Flow Rate 99.0 F 85 16 107/43 L 97 Nasal Cannula 2 05/09/23 04:00 05/09/23 06:07 05/09/23 04:00 05/09/23 04:00 05/09/23 06:07 05/09/23 06:10 05/09/23 06:10 Laboratory Results - last 24 hr 05/06/23 14:55: Crossmatch (AHG) See Detail 05/08/23 08:26: Hgb 8.4 L D, Hct 25.8 L, PT 11.4, INR 1.06, Sodium 131 L, Potassium 3.3 L, Chloride 96 L, Carbon Dioxide 29, Anion Gap 9.3, BUN 8, Creatinine 0.90, Estimated Creat Clear 82, Estimated GFR 62, Est GFR ( Amer) 76, Glucose 98, Calcium 8.2 L, Total Bilirubin 1.8 H, AST 31, ALT 25, Alkaline Phosphatase 91, Total Protein 6.0 L, Albumin 3.5, Globulin 2.5, Albumin/Globulin Ratio 1.4 05/08/23 11:20: Hgb 8.1 L, Hct 25.4 L I & O for Last 24 hours: Intake & Output 05/06/23 05/07/23 05/08/23 05/09/23 10:59 10:59 11:59 11:59 Intake Total 1060 / 1060 Output Total 2049 / 2049 Balance -990 / -990 Weight 208 lb 6 oz Constitutional Constitutional: no acute distress *Routine Respiratory Exam Respiratory: Absent respiratory distress *Routine Cardiovascular Exam Cardiovascular: Absent tachycardia Progress Note: A&P Assessment and plan (1) Acute upper gastrointestinal bleeding: Status: Acute (2) Peptic ulcer disease: Status: Acute (3) Acute blood loss anemia: Status: Acute Assessment and Plan Assessment and Plan for All Diagnoses:: Follow-up morning labs Continue medical management of peptic ulcer disease Likely repeat esophagogastroduodenoscopy in 6-8 weeks
[2023-05-09 07:17] LABS: Basophils % 0.4 % (0.1-2.0); Eosinophils # 0.2 K/mm3 (0.0-0.4); Eosinophils % 2.4 % (0.1-12.0); Hemoglobin 8.2 g/dL (12.2-16.2); Mean Corpuscular HGB Conc 31.5 g/dL (31.8-35.4); Mean Corpuscular Hemoglobin 25.5 pg (27.0-31.2); Mean Platelet Volume 8.7 fl (7.4-10.4); Monocytes # 0.5 K/mm3 (0.1-1.0); Monocytes % 7.3 % (1.7-9.3); Neutrophils # 4.7 K/mm3 (1.8-7.8); Neutrophils % 73.9 % (37.0-80.0); Platelet Count 230 K/mm3 (142-424); Red Blood Count 3.21 M/mm3 (4.20-5.40); Red Cell Distribution Width 20.5 % (11.5-17.5); White Blood Count 6.4 K/mm3 (4.8-10.8)
[2023-05-09 07:30] LABS: Alanine Aminotransferase 23 U/L (12-78); Albumin Level 3.5 g/dl (3.5-5.0); Albumin/Globulin Ratio 1.3 (1.1-1.8); Alkaline Phosphatase 100 U/L (38-126); Anion Gap 10.6 mEq/L (5-15); Aspartate Amino Transferase 27 U/L (14-36); Bilirubin,Total 1.1 mg/dl (0.2-1.3); Blood Urea Nitrogen 8 mg/dl (7-17); Calcium 8.3 mg/dl (8.4-10.2); Carbon Dioxide 27 mmol/L (22.0-30.0); Chloride 97 mmol/L (98-107); Creatinine Clearance Estimated 81 mL/min (50-200); Estimated Glomerular Filt Rate 62 ml/min (>60); GFR (African American) 76 ML/MIN (>60); Globulin 2.6 g/dL (1.3-3.2); Glucose 89 mg/dl (74-100); Potassium 3.6 mmoL/L (3.5-5.1); Sodium 131 mmol/L (136-145); Total Protein,Serum 6.1 g/dl (6.3-8.2)
--- NOTE | 2023-05-09 07:30 | P.DS_ITS ---
General Admission date:: 05/06/23 Discharge date: 05/09/23 HPI HPI HPI: Ms. Carmona is a 68-year-old female with history of A-fib, COPD, chronic hypoxemic respiratory failure, neuropathy, on chronic anticoagulation. She presented to the ER because of several days of worsening shortness of breath and fatigue. She was convinced she had pneumonia as she gets this somewhat frequently. Has had increase her oxygen from her normal 3 L to 4 L. Has been fatigued just walking across the room. Denies increased swelling in her legs orthopnea. She has missed her Coumadin for the past 2 days. Denies any black stools or hematochezia or hematemesis. In the ER, workup remarkable for INR of 1.4, below her therapeutic range. Does state having a dark stool today after further questioning. Stool occult was positive. Found to be profoundly anemic with hemoglobin of 4.9. Kidney function normal, white cell count normal. Chest imaging with no acute focal consolidation. Patient initiated on Kcentra for reversal of her anticoagulation. Patient to be transfused. Medicine consulted for admission after consultation with surgery for further workup of suspected GI bleed. On evaluation after arriving to the floor, patient is very pale. On 4 L with sats in the low 90s. Alert and oriented but hard of hearing. Denies any chest pain, cough, nausea or vomiting. Family at bedside. Awaiting blood, crossmatch difficult due to antibodies. Hospital Course Hospital Course Hospital Course: 68-year-old female with COPD, oxygen dependence, chronic anticoagulation, A-fib. Presents with worsening shortness of breath and fatigue. Workup in the ER concerning for GI bleed and blood loss anemia. Discussed case with the ER, request admission after consultation with surgery. Patient needing transfusion and further monitoring. Medicine agreed to admit. Transfuse third unit this morning given hemoglobin of 6.9. Patient taken for EGD today. Found to have gastric ulcers, no active bleeding. Surgery continues to assist with care. Remained stable with hemoglobin above 8 for over 24 hours and no signs of b leeding. Will continue PPI treatment and hold anticoagulation. Discharge home with close follow-up. Problems addressed as follows: Acute blood loss anemia GI bleed Hypercoagulability -Patient with anemia due to blood loss. Positive stool occult. Case discussed with surgery, taken for EGD, found to have multiple ulcers, hiatal hernia, no active bleeding. Hemoglobin 4.9 on admission. Ultimately necessitated 3 units of packed red blood cells. Hemoglobin remained stable between 8.1 and 8.2 for over 24 hours on serial H&H's. No further signs of bleeding. Initiated on Cytotec and pantoprazole during admission. Will continue pantoprazole 40 mg twice daily for 2 weeks, continue once daily thereafter for peptic ulcer disease. INR normalized to 1. Given patient's A-fib being paroxysmal, feel risk of bleeding outweighs risk of stroke at this time. Will hold anticoagulation pending follow-up with surgery and PCP. Chronic hypoxemic respiratory failure due to COPD -Supplemental oxygen as needed, goal sats greater 90%. Currently on 3 L. Baseline 3 L. Continue home breathing regimen with oral every 4 hours as needed, Breztri 2 puffs twice daily. Hypertension: Blood pressure within normal range at this time, given anemia, will hold on antihypertensives. Allow for permissive hypertension during admission. Resumed blood pressure regimen per home at discharge. Neuropathy: Continue home gabapentin 100 mg 3 times a day Stable for discharge home. Close follow-up with PCP and surgery. Total time spent on discharge 32 minutes in counseling, documentation, chart review, and direct care with patient. Exam Data for Last 24 hours Vital signs and Labs for Last 24 Hours: Temp Pulse Resp BP Pulse Ox O2 Del Method O2 Flow Rate 99.0 F 85 16 107/43 L 97 Nasal Cannula 2 05/09/23 04:00 05/09/23 06:07 05/09/23 04:00 05/09/23 04:00 05/09/23 06:07 05/09/23 06:10 05/09/23 06:10 Laboratory Results - last 24 hr 05/06/23 14:55: Crossmatch (AHG) See Detail 05/08/23 08:26: Hgb 8.4 L D, Hct 25.8 L, PT 11.4, INR 1.06, Sodium 131 L, Potassium 3.3 L, Chloride 96 L, Carbon Dioxide 29, Anion Gap 9.3, BUN 8, Creatinine 0.90, Estimated Creat Clear 82, Estimated GFR 62, Est GFR ( Amer) 76, Glucose 98, Calcium 8.2 L, Total Bilirubin 1.8 H, AST 31, ALT 25, Alkaline Phosphatase 91, Total Protein 6.0 L, Albumin 3.5, Globulin 2.5, Albumin/Globulin Ratio 1.4 05/08/23 11:20: Hgb 8.1 L, Hct 25.4 L 05/09/23 06:10: WBC 6.4 D, RBC 3.21 L D, Hgb 8.2 L, Hct 26.0 L, MCV 81.0, MCH 25.5 L, MCHC 31.5 L, RDW 20.5 H, Plt Count 230, MPV 8.7, Neut % (Auto) 73.9, Lymph % (Auto) 16.0, [place] % (Auto) 7.3, Eos % (Auto) 2.4, Baso % (Auto) 0.4, Neut # (Auto) 4.7, Lymph # (Auto) 1.0, [place] # (Auto) 0.5, Eos # (Auto) 0.2, Baso # (Auto) 0.0 I & O for Last 24 hours: Intake & Output 05/06/23 05/07/23 05/08/23 05/09/23 22:59 22:59 23:59 23:59 Intake Total 120 / 120 Output Total 1200 / 1200 Balance -1080 / -1080 Weight 94.517 kg Constitutional Constitutional: no acute distress, obese, chronically ill appearing and cooperative *Routine HEENT Exam Head: Present normocephalic Eye: Present EOMI and PERRL ENT: Present mucous membranes moist *Routine Neck Exam Neck: Present supple; Absent lymphadenopathy *Routine Respiratory Exam Respiratory: Present prolonged expiratory phase, rhonchi, wheezes and diminished air movement; Absent crackles *Routine Cardiovascular Exam Cardiovascular: Present RRR *Routine Abdominal Exam Abdominal: Present soft and normoactive bowel sounds; Absent tenderness or distended *Routine Rectal Exam Patient deferred: visual exam *Routine Exam Patient deferred: external exam *Routine Extremities Exam Extremities: Absent cyanosis, clubbing or edema *Routine Skin Exam Skin: Present warm; Absent rash *Routine Neurological Exam Neurological: Present alert, oriented X3 and moving all extremities; Absent altered mental status Comments: Very hard of hearing Results Data Completed and Pending Labs on day of discharge: Labs from last 24 hours 05/09/23 05/08/23 05/08/23 06:10 11:20 08:26 WBC 6.4 D RBC 3.21 L D Hgb 8.2 L 8.1 L 8.4 L D Hct 26.0 L 25.4 L 25.8 L MCV 81.0 MCH 25.5 L MCHC 31.5 L RDW 20.5 H Plt Count 230 MPV 8.7 Neut % (Auto) 73.9 Lymph % (Auto) 16.0 [place] % (Auto) 7.3 Eos % (Auto) 2.4 Baso % (Auto) 0.4 Neut # (Auto) 4.7 Lymph # (Auto) 1.0 [place] # (Auto) 0.5 Eos # (Auto) 0.2 Baso # (Auto) 0.0 PT 11.4 INR 1.06 Sodium 131 L Potassium 3.3 L Chloride 96 L Carbon Dioxide 29 Anion Gap 9.3 BUN 8 Creatinine 0.90 Estimated Creat Clear 82 Estimated GFR 62 Est GFR ( Amer) 76 Glucose 98 Calcium 8.2 L Total Bilirubin 1.8 H AST 31 ALT 25 Alkaline Phosphatase 91 Total Protein 6.0 L Albumin 3.5 Globulin 2.5 Albumin/Globulin Ratio 1.4 Crossmatch ([facility]) 05/06/23 14:55 WBC RBC Hgb Hct MCV MCH MCHC RDW Plt Count MPV Neut % (Auto) Lymph % (Auto) [place] % (Auto) Eos % (Auto) Baso % (Auto) Neut # (Auto) Lymph # (Auto) [place] # (Auto) Eos # (Auto) Baso # (Auto) PT INR Sodium Potassium Chloride Carbon Dioxide Anion Gap BUN Creatinine Estimated Creat Clear Estimated GFR Est GFR ( Amer) Glucose Calcium Total Bilirubin AST ALT Alkaline Phosphatase Total Protein Albumin Globulin Albumin/Globulin Ratio Crossmatch ([facility]) See Detail DS: Diagnosis Discharge Diagnosis (1) Acute upper gastrointestinal bleeding: Status: Acute Code(s): K92.2 - Gastrointestinal hemorrhage, unspecified (2) Peptic ulcer disease: Status: Acute Code(s): K27.9 - Peptic ulcer, site unspecified, unspecified as acute or chronic, without hemorrhage or perforation (3) Acute blood loss anemia: Status: Acute Code(s): D62 - Acute posthemorrhagic anemia Meds Home Medications and Allergies Home Medications Medication Instructions Recorded Confirmed Type warfarin 5 mg tablet 2.5 mg PO MOFR Blood thinner, AFIB 02/24/18 05/06/23 History warfarin 5 mg tablet 5 mg PO SUTUWETHSA BLOOD THINNER, 12/23/22 05/06/23 History AFIB budesonide 160 mcg-glycopyr 9 2 puff inhalation BID Copd 05/06/23 05/06/23 History mcg-formot 4.8 mcg/actuation HFA inhaler (Breztri Aerosphere) gabapentin 100 mg capsule 100 mg PO TID Pain 05/06/23 05/06/23 History levalbuterol tartrate 45 2 puff inhalation Q4HP PRN 05/06/23 05/06/23 History mcg/actuation aerosol inhaler Shortness Of Breath losartan 50 mg tablet 50 mg PO DAILY High Blood Pressure 05/06/23 05/06/23 History triamcinolone acetonide 0.5 % 1 applic topical BIDP PRN Skin 05/06/23 05/06/23 History topical cream Condition pantoprazole 40 mg tablet,delayed See Rx Instructions .Route 05/09/23 Rx release .COMPLEX #44 tabs New Prescriptions to Start Prescriptions: pantoprazole Nagi Shelton Allergies Allergy/AdvReac Type Severity Reaction Status Date / Time No Known Allergies Allergy Verified 05/06/23 18:02 Discharge Plan Disposition Patient Disposition: Home, Self-Care Condition: Fair Discharge Order Discharge Orders: Discharge Order (Routine); Ordered 05/09/23 Ordered By: Nagi Shelton Follow up Plan Follow up with: Boo Carpenter MD [Primary Care Provider] - 05/16/23 2:00 pm Angel Gooden MD [Staff Physician] - 05/18/23 9:00 am Prescriptions/Medication Reconciliation: New pantoprazole 40 mg tablet,delayed release (DR/EC) See Rx Instructions .ROUTE .COMPLEX Qty: 44 0RF Rx Instructions: 40 mg orally twice daily for 2 weeks, then once daily thereafter Continued triamcinolone acetonide 0.5 % cream 1 applic TOPICAL BIDP PRN (Reason: Skin Condition) levalbuterol tartrate 45 mcg/actuation HFA aerosol inhaler 2 puff INHALATION Q4HP PRN (Reason: Shortness Of Breath) Breztri Aerosphere 160-9-4.8 mcg/actuation HFA aerosol inhaler 2 puff INHALATION BID Patient Comments: INHALE 2 PUFFS TWICE DAILY FOR 30 DAYS losartan 50 mg tablet 50 mg PO DAILY Patient Comments: TAKE 1 TABLET BY MOUTH ONCE DAILY gabapentin 100 mg capsule 100 mg PO TID Patient Comments: TAKE 1 CAPSULE BY MOUTH THREE TIMES DAILY Held warfarin 5 MG tablet 2.5 mg PO MOFR Hold Instructions: Pending follow-up with surgery and PCP warfarin 5 mg tablet 5 mg PO SUTUWETHSA Hold Instructions: Pending follow-up with surgery and PCP Problem Reconciliation Problems Reviewed?: Yes Patient Discharge Instructions ACTIVITY: Continue current activity DIET: continue same diet Patient Instructions: Anemia, DI for Gastrointestinal Bleeding Providers Primary Care Provider: Boo Carpenter Admit Provider: Nagi Shelton Attending Provider: Nagi Shelton
[2023-05-09] MEDS: HYDROCODONE/APAP 5/325 MG TABLET 1 TAB PO (07:44)
[2023-05-09 07:53] LABS: Magnesium 1.9 mg/dl (1.6-2.3)
[2023-05-09 08:00] VITALS: BP 132/62; PULSE 85; RESP 24; TEMP 36.3; O2SAT 99
[2023-05-09] MEDS: GABAPENTIN 100MG CAPSULE 200 MG PO ×2 (09:26→13:01)
[2023-05-09] MEDS: PANTOPRAZOLE 40MG VIAL 40 MG IV (09:27)
[2023-05-09] MEDS: ACETAMINOPHEN 325MG TAB 650 MG PO (10:16)
--- NOTE | 2023-05-09 14:04 | PC.NURSE ---
Patient discharged home with via wheelchair in stable condition. ON 2L O2. Complaint of chronic back pain. No other complaints at this time. Patient states understanding of followup appointments and when to seek medical attention.
--- NOTE | 2023-05-10 10:43 | CARE MANAGER ---
Spoke with patient roommate as patient is hearing impaired, she is aware of follow-up appointments and got medications filled. No issues noted.
== END 2023-05-09 14:05 | disposition home or self-care (01) | DRG 378 ==
LOC: ER 15:24 → 2ND 16:26
PROVIDERS: Student in an Organized Health Care Education/Training Program; Admitting Provider Internal Medicine Adolescent Medicine; Emergency Provider Student in an Organized Health Care Education/Training Program; PCP Internal Medicine Adolescent Medicine; Visit Provider Internal Medicine Adolescent Medicine
PROC: 0FT44ZZ Resection of Gallbladder, Percutaneous Endoscopic Approach (ICD-10-PCS; CPT 47562; principal; 2023-05-08 07:00)
DX: K25.4 Chronic or unspecified gastric ulcer with hemorrhage (principal); D62 Acute posthemorrhagic anemia; I48.20 Chronic atrial fibrillation, unspecified; J96.11 Chronic respiratory failure with hypoxia; Z79.01 Long term (current) use of anticoagulants; Z87.891 Personal history of nicotine dependence; Z99.81 Dependence on supplemental oxygen; J44.9 Chronic obstructive pulmonary disease, unspecified; G62.9 Polyneuropathy, unspecified; K44.9 Diaphragmatic hernia without obstruction or gangrene; I10 Essential (primary) hypertension; R79.1 Abnormal coagulation profile
CPT/HCPCS: 43235; 36415; 71045; 71275; 80053; 82272; 83735; 83880; 84484; 85014; 85018; 85025; 85378; 85610; 86850; 86870; 87636; 93005; 94640; 94761; 99291; G0328; J7168; P9016; Q9967

== ENCOUNTER 2023-05-18 09:03 | Outpatient (CLI) | payer MEDICARE, OTHER, SELFPAY ==
[2023-05-18 09:23] LABS: Hematocrit 26.8 % (37.0-47.0); Hemoglobin 8.7 g/dL (12.2-16.2)
== END 2023-05-18 23:59 ==
PROVIDERS: PCP Internal Medicine Adolescent Medicine; Visit Provider Surgery
DX: D64.9 Anemia, unspecified (principal)
CPT/HCPCS: 36415; 85014; 85018

== ENCOUNTER 2023-06-11 12:37 | Emergency (ER) | payer MEDICARE, OTHER, SELFPAY ==
[2023-06-11] VITALS (9 sets, daily range): BP systolic 130–154; BP diastolic 68–94; PULSE 63–88; RESP 15–18; TEMP 36.6–37; O2SAT 97–100; BMI 32.1; BMI 31.9
--- NOTE | 2023-06-11 13:40 | EXP.UTC ---
Discharge Plan Disposition Patient Disposition: Still a Patient Prescriptions Prescriptions: No Action gabapentin 100 mg capsule 100 mg PO DAILY Patient Comments: TAKE 1 CAPSULE BY MOUTH THREE TIMES DAILY levalbuterol tartrate 45 mcg/actuation HFA aerosol inhaler 2 puff INHALATION Q4HP PRN (Reason: Shortness Of Breath) Breztri Aerosphere 160-9-4.8 mcg/actuation HFA aerosol inhaler 2 puff INHALATION BID Patient Comments: INHALE 2 PUFFS TWICE DAILY FOR 30 DAYS losartan 50 mg tablet 50 mg PO DAILY Patient Comments: TAKE 1 TABLET BY MOUTH ONCE DAILY Referrals Follow up/Referrals: Boo Carpenter MD [Primary Care Provider] - See instructions Discharge ED Provider: C[facility] ([facility] HPI General Stated complaint: vomiting, back pain, no appetite Mode of Arrival: Ambulatory Source of Information: Patient Limitations: No Limitations Time Seen by Provider: 06/11/23 13:40 Description of Symptoms (Recalled from Triage Doc. by RN): PATIENT C/O VOMITING, DIARRHEA, AND BACK PAIN HEENT Symptoms (Recalled from RN notes): No Resp Symptoms (Recalled from RN notes): No Skin Symptoms (Recalled from RN notes): No MS Symptoms (Recalled from RN notes): Yes Functional Status (Recalled from RN notes): WNL History of Present Illness Provider Complaint: 68 YR OLD FEMALE PRESNETS FOR BACK PAIN AND VOMITING/NAUSEA AND DIARRHEA. PT STATES SHE HAS NOT BEEN ABLE TO EAT SINCE LAST TUESDAY DUE TO FEELING WEAK AND SICK. PT STATES SHE WAS IN THE HOSPITAL 3 WEEKS AGO FOR GI BLEED. Related Data Home Medications Medication Instructions Recorded Confirmed budesonide 160 mcg-glycopyr 9 2 puff inhalation BID Copd 05/06/23 06/11/23 mcg-formot 4.8 mcg/actuation HFA inhaler (Breztri Aerosphere) levalbuterol tartrate 45 2 puff inhalation Q4HP PRN 05/06/23 06/11/23 mcg/actuation aerosol inhaler Shortness Of Breath losartan 50 mg tablet 50 mg PO DAILY High Blood Pressure 05/06/23 06/11/23 gabapentin 100 mg capsule 100 mg PO DAILY 06/11/23 06/11/23 Allergies Allergy/AdvReac Type Severity Reaction Status Date / Time No Known Allergies Allergy Verified 05/18/23 08:53 Worker's Comp Is this a Worker's Comp case?: No [facility] Disclaimer: The information contained in this section may have been updated after the patient was seen, as this information can be updated by other users. 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) Smoking Status: Former smoker tobacco type: cigarettes packs per day: 1 second hand exposure: No alcohol intake: never current occupational status: disabled Travel in the last 8 weeks: None household members: children housing: house current occupational exposures/hazards: No caffeine: Yes ROS Obtained: Yes All systems reviewed & no additional complaints except as documented Constitutional Constitutional: Reports system reviewed and no additional complaints, except as documented and Reports as per HPI Eyes Eyes: Reports system reviewed and no additional complaints, except as documented ENT Ears, Nose, Mouth, and Throat: Reports system reviewed and no additional complaints, except as documented Cardiovascular Cardiovascular: Reports system reviewed and no additional complaints, except as documented Respiratory Respiratory: Reports system reviewed and no additional complaints, except as documented Gastrointestinal Gastrointestingal: Reports system reviewed and no additional complaints, except as documented, as per HPI, diarrhea, nausea and vomiting Musculoskeletal Musculoskeletal: Reports system reviewed and no additional complaints, except as documented, Reports as per HPI and Reports back pain Integumentary/Breasts Skin/Breast: Reports system reviewed and no additional complaints, except as documented Neurologic Neurologic: Reports system reviewed and no additional complaints, except as documented Endocrine Endocrine: Reports system reviewed and no additional complaints, except as documented Hematologic/Lymphatic Henatologic/Lymphatic: Reports system reviewed and no additional complaints, except as documented Allergic/Immunologic Allergic/Immunologic: Reports system reviewed and no additional complaints, except as documented Physical Exam General General appearance: alert and in no apparent distress Head Head exam: atraumatic Eye Eye exam: Present normal appearance and PERRL ENT ENT exam: Present normal exam, normal oropharynx, mucous membranes moist and TM's normal bilaterally Respiratory Respiratory exam: Present normal lung sounds bilaterally Cardiovascular Cardiovascular exam: Present irregular rhythm and systolic murmur Back Exam Back 1 view image: 1. TENDER Neurological Exam Neurological exam: Present alert, oriented X3 and other ([place]) Skin Skin exam: Present warm and intact Medical Decision Making Medical Records Medical records reviewed: Yes I reviewed the patient's medical records. [place] Inquiry Pt receiving controlled substance: No [place] was queried for this patient: No Vital Signs: 06/11/23 13:25 Temperature 97.8 F Temperature Source Oral Pulse Rate [Right Brachial] 74 Respiratory Rate 18 Blood Pressure [Right Arm] 131/76 Blood Pressure Mean [Right Arm] 94 Blood Pressure Source [Right Arm] Automatic Cuff Blood Pressure Position [Right Arm] Sitting 02 Sat by Pulse Oximetry 97 Oxygen Delivery Method Nasal Cannula Oxygen Flow Rate (LPM) 2.5 Lab Data Lab results reviewed: Yes I reviewed the patient's lab results. 06/11/23 13:45 06/11/23 13:45 Orders (Tests/Meds): ED MEDICATIONS Generic Name Dose Route Start Last Admin Trade Name Freq PRN Reason Stop Dose Admin Sodium Chloride 1,000 mls @ 50 mls/hr 06/11/23 13:45 Sod Chlor 0.9% 1000ml Bag IV 07/11/23 13:44 .Q20H SHRUTHI Sodium Chloride 10 ml 06/11/23 13:38 Sodium Chloride 0.9% 10ml Flush Syringe IV 06/11/23 13:39 ONCE ONE ORDERS Category Date Time Status CBC Man Diff [Complete Blood Count Man Dif] Stat Lab 06/11/23 13:37 Ordered CMP [Comprehensive Metabolic Panel] Stat Lab 06/11/23 13:37 Ordered Physician Consults Physician Consulted: DR ARREDONDO Time: 14:47 Reason -: Admission and Pt condition Comment/Response: WANTS PT EVALUATED IN ER
[2023-06-11 13:46] LABS: Apearance,Urine Cloudy (Clear); Bilirubin,Urine 2+ (Negative); Blood, Urine Negative (Negative); Color,Urine Dark Yellow (Yellow); Glucose,Urine (UA) 100 (Negative); Ketones,Urine TRACE (Negative); Protein,Urine 1+ (Negative); Specific Gravity, Urine 1.025 (1.005-1.030); UTC Leukocyte Esterase,Urine Negative (Negative); UTC Nitrate,Urine Negative (Negative); Urobilinogen,Urine >=8 EU/dl (0.2)
[2023-06-11] MEDS: SODIUM CHLORIDE 0.9% 500ML BAG 500 ML IV (13:59)
[2023-06-11] MEDS: SODIUM CHLORIDE 0.9% 10ML FLUSH SYRINGE 10 ML IV (13:59)
[2023-06-11 14:04] LABS: MANUAL DIFFERENTIAL MANUAL DIFFERENTIAL (MANUAL DIFF)
[2023-06-11 14:07] LABS: Chloride 101 mmol/L (98-107); Sodium 130 mmol/L (136-145)
[2023-06-11 14:08] LABS: Potassium 3.7 mmoL/L (3.5-5.1)
[2023-06-11 14:10] LABS: Alanine Aminotransferase 81 U/L (12-78); Albumin Level 3.9 g/dl (3.5-5.0); Albumin/Globulin Ratio 1.3 (1.1-1.8); Alkaline Phosphatase 149 U/L (38-126); Anion Gap 8.7 mEq/L (5-15); Aspartate Amino Transferase 152 U/L (14-36); Bilirubin,Total 1.8 mg/dl (0.2-1.3); Blood Urea Nitrogen 9 mg/dl (7-17); Calcium 9.1 mg/dl (8.4-10.2); Carbon Dioxide 24 mmol/L (22.0-30.0); Creatinine Clearance Estimated 78 mL/min (50-200); Estimated Glomerular Filt Rate 72 ml/min (>60); GFR (African American) 87 ML/MIN (>60); Globulin 2.9 g/dL (1.3-3.2); Glucose 119 mg/dl (74-100); Total Protein,Serum 6.8 g/dl (6.3-8.2)
[2023-06-11 14:16] LABS: Basophils % 0.7 % (0.1-2.0); Eosinophils % 0.7 % (0.1-12.0); Hematocrit 30.5 % (37.0-47.0); Hemoglobin 9.1 g/dL (12.2-16.2); Lymphocytes # 0.9 K/mm3 (0.7-4.5); Lymphocytes % 19.8 % (10-50); Mean Corpuscular HGB Conc 29.9 g/dL (31.8-35.4); Mean Corpuscular Hemoglobin 24.4 pg (27.0-31.2); Mean Corpuscular Volume 81.8 fl (81-99); Mean Platelet Volume 8.8 fl (7.4-10.4); Monocytes # 0.3 K/mm3 (0.1-1.0); Monocytes % 5.3 % (1.7-9.3); Neutrophils # 3.5 K/mm3 (1.8-7.8); Neutrophils % 73.5 % (37.0-80.0); Red Blood Count 3.73 M/mm3 (4.20-5.40); Red Cell Distribution Width 20.9 % (11.5-17.5); White Blood Count 4.7 K/mm3 (4.8-10.8)
[2023-06-11 14:34] LABS: Platelet Count 32 K/mm3 (142-424)
[2023-06-11 14:50] LABS: Eosinophils % 1 % (0-3); Lymphocytes % 15 % (10-50); Monocytes % 5 % (2-9); Neutrophils % 79 % (42-76); Platelet Estimate Marked Decrease; Total Cells Counted 100
[2023-06-11 14:51] LABS: Microcytosis 1+; Ovalocytes 1+; Tear Drop Cells 1+
--- NOTE | 2023-06-11 15:16 | PC.NURSE ---
pt arrived to room 8 from [facility]
--- NOTE | 2023-06-11 15:55 | CT_ITS ---
PROCEDURE INFORMATION: Exam: CT Abdomen And Pelvis With Contrast Exam date and time: 06/11/2023 6:25 PM Age: 68 years old Clinical indication: Abdominal pain; Additional info: L CVA pain lifting, vomiting, diarrhea TECHNIQUE: Imaging protocol: Computed tomography of the abdomen and pelvis with contrast. Radiation optimization: All CT scans at this facility use at least one of these dose optimization techniques: automated exposure control; mA and/or kV adjustment per patient size (includes targeted exams where dose is matched to clinical indication); or iterative reconstruction. Contrast material: ISOVUE; Contrast volume: 75 ml; Contrast route: IV; COMPARISON: CT ABDOMEN PELVIS W CON 01/06/2022 1:51 AM FINDINGS: Lungs: Right middle lobe and lingular atelectasis and/or scarring. 11 mm noncalcified irregular pulmonary nodule within the right middle lobe (series 3, image 4). Liver: Normal. Gallbladder and bile ducts: Normal. Pancreas: Normal. Spleen: Normal. Adrenal glands: Normal. No mass. Kidneys and ureters: Simple right renal cyst, for which no further evaluation necessary. Stomach and bowel: Normal. Appendix: No evidence of appendicitis. Intraperitoneal space: Unremarkable. No free air. No significant fluid collection. Vasculature: Atherosclerotic disease of the visualized distal thoracic aorta. Atherosclerotic disease of the abdominal aorta and iliac arteries. Phleboliths within the pelvis. Lymph nodes: Unremarkable. No enlarged lymph nodes. Urinary bladder: Unremarkable as visualized. Reproductive: Unremarkable as visualized. Bones/joints: Mild degenerative changes of the hips and sacroiliac joints. Multilevel thoracolumbar spine degenerative disc space narrowing and osteophyte formation. Soft tissues: Small fat containing umbilical hernia. IMPRESSION: 1. No acute abdominal or pelvic abnormality. 2. 11 mm noncalcified irregular pulmonary nodule within the right middle lobe (series 3, image 4), slightly increased in size from comparison study. Infectious/inflammatory versus neoplastic process possible.For both low risk and high risk patients, consider CT Chest at 3 months, PET/CT, or biopsy. (Reference: Sharlene) REFERENCES: Sharlene Benjamin et al. Guidelines for Management of Incidental Pulmonary Nodules Detected on CT Images: From the Fleischner Society 2017. Radiology. 2017;284(1):228-243.
[2023-06-11 16:02] LABS: Microscopic, Urine URINE MICROSCOPIC (MICROSCOPIC)
--- NOTE | 2023-06-11 16:06 | HMH.EDGENADL ---
Discharge Plan Disposition Patient Disposition: Home, Self-Care Prescriptions Prescriptions: No Action gabapentin 100 mg capsule 100 mg PO DAILY Patient Comments: TAKE 1 CAPSULE BY MOUTH THREE TIMES DAILY levalbuterol tartrate 45 mcg/actuation HFA aerosol inhaler 2 puff INHALATION Q4HP PRN (Reason: Shortness Of Breath) Ashu [employer]esphere 160-9-4.8 mcg/actuation HFA aerosol inhaler 2 puff INHALATION BID Patient Comments: INHALE 2 PUFFS TWICE DAILY FOR 30 DAYS losartan 50 mg tablet 50 mg PO DAILY Patient Comments: TAKE 1 TABLET BY MOUTH ONCE DAILY Referrals Follow up/Referrals: Boo Carpenter MD [Primary Care Provider] - See instructions Cole Lockett MD [Staff Physician] - See instructions Activity Restrictions/Add. Instructions Additional Instructions/Restrictions: At this time it was felt you are safe to be discharged home. If new or worsening symptoms please do not hesitate to return the emergency department. Please call and schedule appointment with Dr. Kearney early next week for checking your platelets (blood clotting). If symptoms of vomiting and diarrhea persist please call and schedule appointment with Dr. Carpenter as discussed. There was an incidental small spot on your lung that was found, please follow-up with Dr. Carpenter for this, it is not currently worrisome but needs to be watched. Please take your medicine as prescribed. Clinical Impressions Clinical Impression: Thrombocytopenia, Transaminitis, Hyperbilirubinemia, Vomiting, Diarrhea, Pulmonary nodule Instructions Patient Instructions: DI for Diarrhea and Traveler's Diarrhea -- Adult, DI for Diarrhea and Traveler's Diarrhea -- Child, DI for Nausea -- Adult, DI for Nausea -- Child Discharge ED Provider: Sekou Perez General Adult HPI General Chief complaint: Nausea/Vomiting/Diarrhea Stated complaint: vomiting, back pain, no appetite Time Seen by Provider: 06/11/23 13:40 Mode of Arrival: Wheelchair Source of Information: Patient Limitations: No Limitations Description of Symptoms (Recalled from ER Triage Doc. by RN): pt presents from [facility] for further evaluation. pt reports she has had n/v/d since last tuesday. pt reports general unwell feeling. pt does wear oxygen 2L at baseline. History of Present Illness HPI narrative: Patient is a 68-year-old female with past medical history of previous gastrointestinal bleeding secondary to ulcers, chronic back pain on the right side who presents emergency department for evaluation of nausea, vomiting, diarrhea. Onset was acute, occurring over the last 3 days, multiple positive sick contacts. Patient is having back pain in her same spot however it is much worse than normal, right thoracolumbar paraspinal area. No significant dysuria. No localized abdominal pain. She feels as if she is dehydrated. Patient presented to urgent care today where workup was remarkable for stable anemia, severe thrombocytopenia platelet count 32, stable hyponatremia, mild transaminitis and mild hyperbilirubinemia and was transferred here for continued evaluation. Related Data Home Medications Medication Instructions Recorded Confirmed budesonide 160 mcg-glycopyr 9 2 puff inhalation BID Copd 05/06/23 06/11/23 mcg-formot 4.8 mcg/actuation HFA inhaler ([employer]) levalbuterol tartrate 45 2 puff inhalation Q4HP PRN 05/06/23 06/11/23 mcg/actuation aerosol inhaler Shortness Of Breath losartan 50 mg tablet 50 mg PO DAILY High Blood Pressure 05/06/23 06/11/23 gabapentin 100 mg capsule 100 mg PO DAILY 06/11/23 06/11/23 Allergies Allergy/AdvReac Type Severity Reaction Status Date / Time No Known Allergies Allergy Verified 05/18/23 08:53 [facility] Disclaimer: The information contained in this section may have been updated after the patient was seen, as this information can be updated by other users. 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) Smoking Status: Former smoker tobacco type: cigarettes packs per day: 1 second hand exposure: No alcohol intake: never current occupational status: disabled Travel in the last 8 weeks: None household members: children housing: house current occupational exposures/hazards: No caffeine: Yes ROS Obtained: Yes Systems reviewed as appropriate & no additional complaints except as documented Physical Exam General General appearance: alert and in no apparent distress Head Head exam: atraumatic and normocephalic Eye Eye exam: Present PERRL and EOMI ENT ENT exam: Present mucous membranes moist Neck Neck exam: Present normal inspection Chest Chest inspection: Present normal inspection and symmetric chest wall rise Respiratory Respiratory exam: Present normal lung sounds bilaterally; Absent respiratory distress Cardiovascular Cardiovascular exam: Present regular rate Abdominal Exam Abdominal exam: Present soft; Absent tenderness Extremities Exam Extremities exam: Present normal inspection Neurological Exam Neurological exam: Present alert Psychiatric Psychiatric exam: Present normal affect Skin Skin exam: Present warm and dry Medical Decision Making [place] Inquiry Pt receiving controlled substance: No Vital Signs: 06/11/23 13:25 06/11/23 15:30 06/11/23 15:37 Temperature 97.8 F 98.3 F Temperature Source Oral Oral Pulse Rate 76 Pulse Rate [Right Brachial] 74 88 Respiratory Rate 18 15 Blood Pressure 141/78 H Blood Pressure [Right Arm] 131/76 146/94 H Blood Pressure Mean [Right Arm] 94 111 Blood Pressure Source [Right Arm] Automatic Cuff Blood Pressure Position [Right Arm] Sitting 02 Sat by Pulse Oximetry 97 100 100 Oxygen Delivery Method Nasal Cannula Nasal Cannula Room Air Oxygen Flow Rate (LPM) 2.5 06/11/23 16:00 06/11/23 16:30 06/11/23 17:00 Temperature Temperature Source Pulse Rate 80 71 63 Pulse Rate [Right Brachial] Respiratory Rate Blood Pressure 152/82 H 152/82 H 148/71 H Blood Pressure [Right Arm] Blood Pressure Mean [Right Arm] Blood Pressure Source [Right Arm] Blood Pressure Position [Right Arm] 02 Sat by Pulse Oximetry 100 99 100 Oxygen Delivery Method Nasal Cannula Nasal Cannula Nasal Cannula Oxygen Flow Rate (LPM) 06/11/23 17:30 06/11/23 18:00 Temperature Temperature Source Pulse Rate 67 81 Pulse Rate [Right Brachial] Respiratory Rate Blood Pressure 154/80 H 138/71 Blood Pressure [Right Arm] Blood Pressure Mean [Right Arm] Blood Pressure Source [Right Arm] Blood Pressure Position [Right Arm] 02 Sat by Pulse Oximetry 100 99 Oxygen Delivery Method Nasal Cannula Oxygen Flow Rate (LPM) Lab Data Lab Results 06/11/23 13:37: Urine Color Dark yellow, Urine Appearance Cloudy, Urine pH 6.0, Ur Specific [place] 1.025, Urine Protein 1+, Urine Glucose (UA) 100, Urine Ketones Trace, Urine Blood Negative, Urine Nitrate Negative, Urine Bilirubin 2+ A, Urine Urobilinogen >=8, Ur Leukocyte Esterase Negative 06/11/23 13:41: Urine Color Yellow, Urine Appearance Clear, Urine pH 6.5, Ur Specific [place] 1.025, Urine Protein Trace, Urine Glucose (UA) Negative, Urine Ketones Trace, Urine Blood Negative, Urine Nitrate Negative, Urine Bilirubin 1+ A, Urine Urobilinogen 4.0, Ur Leukocyte Esterase Negative, Urine RBC None, Urine WBC 3-5, Ur Squamous Epith Cells Occasional, Urine Bacteria 3+ 06/11/23 13:45: WBC 4.7 L, RBC 3.73 L, Hgb 9.1 L, Hct 30.5 L, MCV 81.8, MCH 24.4 L, MCHC 29.9 L, RDW 20.9 H, Plt Count 32 L*, MPV 8.8, Neut % (Auto) 73.5, Lymph % (Auto) 19.8, Bureau % (Auto) 5.3, Eos % (Auto) 0.7, Baso % (Auto) 0.7, Neut # (Auto) 3.5, Lymph # (Auto) 0.9, Bureau # (Auto) 0.3, Eos # (Auto) 0.0, Baso # (Auto) 0.0, Total Counted 100, Neutrophils % (Manual) 79 H, Lymphocytes % (Manual) 15, Monocytes % (Manual) 5, Eosinophils % (Manual) 1, Platelet Estimate Marked decrease, Microcytosis 1+, Tear Drop Cells 1+, Ovalocytes 1+, Sodium 130 L, Potassium 3.7, Chloride 101, Carbon Dioxide 24, Anion Gap 8.7, BUN 9, Creatinine 0.80, Estimated Creat Clear 78, Estimated GFR 72, Est GFR ( Amer) 87, Glucose 119 H, Calcium 9.1, Total Bilirubin 1.8 H, Direct Bilirubin 0.9 H, AST 152 H, ALT 81 H, Alkaline Phosphatase 149 H, Total Protein 6.8, Albumin 3.9, Globulin 2.9, Albumin/Globulin Ratio 1.3, Lipase 164 06/11/23 17:10: PT 12.4, INR 1.16 H, Fibrinogen 185 L 04/13/24 13:45 06/11/23 13:45 Orders (Tests/Meds): ED MEDICATIONS Discontinued Medications Generic Name Dose Route Start Last Admin Trade Name Abisai PRN Reason Stop Dose Admin Sodium Chloride 1,000 mls @ 50 mls/hr 06/11/23 13:45 06/11/23 13:56 Sod Chlor 0.9% 1000ml Bag IV 07/11/23 13:44 Not Given .Q20H SHRUTHI Lactated Ringer's 1,000 mls @ 999 mls/hr 06/11/23 16:00 06/11/23 16:14 Lactated Ringer's 1000 Ml Bag IV 06/11/23 17:00 999 mls/hr .Q1H1M ONE Administration Iopamidol 75 ml 06/11/23 18:24 06/11/23 18:25 Iopamidol-370 (76%);100ml Bottle IV 06/11/23 18:25 75 ml ONCE ONE Administration Ketorolac Tromethamine 15 mg 06/11/23 16:11 06/11/23 16:13 Ketorolac 30mg/Ml Vial IV 06/11/23 16:12 15 mg ONCE ONE Administration Methocarbamol 1,000 mg 06/11/23 16:11 06/11/23 16:13 Methocarbamol 500mg Tablet PO 06/11/23 16:12 1,000 mg ONCE ONE Administration Ondansetron HCl 4 mg 06/11/23 16:00 06/11/23 16:13 Ondansetron 4mg/2ml Vial IV 06/11/23 16:01 4 mg ONCE ONE Administration Sodium Chloride 10 ml 06/11/23 13:38 06/11/23 13:59 Sodium Chloride 0.9% 10ml Flush Syringe IV 06/11/23 13:39 10 ml ONCE ONE Administration Sodium Chloride 500 ml 06/11/23 13:56 06/11/23 13:59 Sodium Chloride 0.9% 500ml Bag IV 06/11/23 13:57 500 ml ONCE ONE Administration Sodium Chloride 10 ml 06/11/23 18:24 06/11/23 18:25 Sodium Chloride 0.9% 10ml Syr (Rad Only) IV 06/11/23 18:25 10 ml ONCE ONE Administration ORDERS Category Date Time Status CT abdomen pelvis w con Stat Cat Scan 06/11/23 15:55 Completed Bilirubin,Direct Stat Lab 06/11/23 13:45 Completed CBC Man Diff [Complete Blood Count Man Dif] Stat Lab 06/11/23 13:45 Completed CMP [Comprehensive Metabolic Panel] Stat Lab 06/11/23 13:45 Completed Fibrinogen Stat Lab 06/11/23 17:10 Completed Lipase Stat Lab 06/11/23 13:45 Completed PT INR [Prothrombin Time INR] Stat Lab 06/11/23 17:10 Completed UA [Urinalysis and Microscopic] Stat Lab 06/11/23 13:41 Completed Urine Culture Stat Micro 06/11/23 13:41 Received Medical Decision Narrative: In summary patient is a 68-year-old female past medical history described above presents emergency department for evaluation of laboratory abnormalities, nausea, vomiting, diarrhea. Patient is hemodynamically stable nontoxic-appearing upon arrival, afebrile. Differential diagnosis includes viral syndrome, cirrhosis, right upper quadrant pathology, among others. Workup will be conducted with hematologic labs, urinalysis, CT abdomen pelvis IV contrast. Initial inventions include Zofran and crystalloid bolus. Workup reviewed by me, stable anemia, acute severe thrombocytopenia platelet count 32,000. Per chart review patient has had thrombocytopenia before of undetermined etiology, hyponatremia is stable. Patient has elevated liver markers which are mild, elevated bilirubin which has been elevated previously. Patient has no abdominal tenderness, no significant leukocytosis, afebrile and no dilatation of the gallbladder ducts, normal lipase. Given this no concern for acute surgical hepatobiliary pathology or infection. There is an incidental 11 mm noncalcified pulmonary nodule for which follow-up CT was recommended. The abnormal blood findings were relayed to the patient and she will follow-up with Dr. Kearney next week. Upon repeat evaluation patient had persistent severe back pain for which single dose oxycodone was felt to be reasonable. Patient was given return precautions. Critical Care Critical Care Time Critical Care Time: No
[2023-06-11 16:07] LABS: Bilirubin,Direct 0.9 mg/dl (0.0-0.4); Lipase 164 U/L (23-300)
[2023-06-11 16:07] LABS: Appearance,Urine CLEAR (Clear); Bilirubin,Urine 1+ (Negative); Blood, Urine Negative (Negative); Color,Urine YELLOW (Yellow); Glucose,Urine (UA) Negative (Negative); Ketones,Urine TRACE (Negative); Leukocyte Esterase,Urine Negative (Negative); Nitrate,Urine Negative (Negative); PH,Urine 6.5 (5.0-8.5); Protein,Urine TRACE (Negative); Specific Gravity, Urine 1.025 (1.005-1.030)
[2023-06-11] MEDS: KETOROLAC 30MG/ML VIAL 15 MG IV (16:13)
[2023-06-11] MEDS: ONDANSETRON 4MG/2ML VIAL 4 MG IV (16:13)
[2023-06-11] MEDS: METHOCARBAMOL 500MG TABLET 1000 MG PO (16:13)
[2023-06-11] MEDS: LACTATED RINGERS 1000ML 1,000 ML 999 ML IV (16:14)
[2023-06-11 16:26] LABS: Bacteria,Urine 3+ /lpf; Squamous Epithelial Cell,Urine Occasional #/hpf (0-5)
[2023-06-11 17:38] LABS: Fibrinogen 185 mg/dL (229.9-363.5); INR 1.16 (0.9-1.1); Prothrombin Time 12.4 seconds (10.1-12.5)
--- NOTE | 2023-06-11 18:20 | PC.NURSE ---
pt at ct at this time
[2023-06-11] MEDS: SODIUM CHLORIDE 0.9% 10ML SYR (RAD ONLY) 10 ML IV (18:25)
[2023-06-11] MEDS: IOPAMIDOL-370 (76%);100ML BOTTLE 75 ML IV (18:25)
--- NOTE | 2023-06-11 18:29 | PC.NURSE ---
pt back to room
[2023-06-11] MEDS: OXYCODONE 5MG IMMEDIATE RELEASE TABLET 5 MG PO (19:48)
--- NOTE | 2023-06-16 08:00 | PC.NURSE ---
attempted to call pt and daughter to update about new prescription for antibiotic order per , no answer at this time, will call back
--- NOTE | 2023-06-16 12:40 | PC.NURSE ---
attempted to call pt and daughter again about urine culture, no response at this time
--- NOTE | 2023-06-16 17:02 | PC.NURSE ---
spoke with pt family who states the pt is hearing impaired. updated family that an antibiotic has been called into [facility] for pt to take due to her urine culture.
== END 2023-06-11 19:57 | disposition home or self-care (01) ==
LOC: UTC 14:48 → ER 15:15
PROVIDERS: Nurse Practitioner Family; Emergency Provider Emergency Medicine; PCP Internal Medicine Adolescent Medicine
DX: R11.2 Nausea with vomiting, unspecified; R74.01 Elevation of levels of liver transaminase levels; E87.1 Hypo-osmolality and hyponatremia; E80.6 Other disorders of bilirubin metabolism; D69.6 Thrombocytopenia, unspecified; R19.7 Diarrhea, unspecified; B96.29 Other Escherichia coli [E. coli] as the cause of diseases classified elsewhere; R91.1 Solitary pulmonary nodule; I10 Essential (primary) hypertension; M54.9 Dorsalgia, unspecified
CPT/HCPCS: 74177; 80053; 81001; 81003; 82248; 83690; 85007; 85014; 85018; 85048; 85049; 85384; 85610; 87086; 96361; 96374; 96375; 99284; J2405; Q9967

== ENCOUNTER 2023-12-14 13:20 | Outpatient (CLI) | payer MEDICARE, OTHER, SELFPAY | END 2023-12-14 23:59 | disposition home or self-care (01) | LOC: RT 13:22 | PROVIDERS: PCP Internal Medicine Adolescent Medicine; Visit Provider Internal Medicine Adolescent Medicine | DX: I48.19 Other persistent atrial fibrillation (principal); I10 Essential (primary) hypertension; J96.11 Chronic respiratory failure with hypoxia; I49.1 Atrial premature depolarization | CPT/HCPCS: 93270 ==

== ENCOUNTER 2024-01-21 11:16 | Outpatient (CLI) | payer MEDICARE, OTHER, SELFPAY ==
[2024-01-21 11:56] LABS: Basophils # 0.1 K/mm3 (0-0.2); Basophils % 0.9 % (0.1-2.0); Eosinophils # 0.7 K/mm3 (0.0-0.4); Eosinophils % 8.9 % (0.1-12.0); Hematocrit 29.8 % (37.0-47.0); Hemoglobin 9.3 g/dL (12.2-16.2); Lymphocytes # 1.4 K/mm3 (0.7-4.5); Lymphocytes % 17.5 % (10-50); Mean Corpuscular HGB Conc 31.2 g/dL (31.8-35.4); Mean Corpuscular Hemoglobin 22.9 pg (27.0-31.2); Mean Corpuscular Volume 73.3 fl (81-99); Mean Platelet Volume 9.4 fl (7.4-10.4); Monocytes # 0.6 K/mm3 (0.1-1.0); Monocytes % 7.8 % (1.7-9.3); Neutrophils # 5.1 K/mm3 (1.8-7.8); Platelet Count 144 K/mm3 (142-424); Red Blood Count 4.07 M/mm3 (4.20-5.40); Red Cell Distribution Width 17.9 % (11.5-17.5); White Blood Count 7.9 K/mm3 (4.8-10.8)
[2024-01-21 12:11] LABS: Triiodothryronine (T3) Uptake 35 % (23.5-40.5)
[2024-01-21 12:51] LABS: Albumin Level 3.7 g/dl (3.5-5.0); Chloride 94 mmol/L (98-107); Potassium 3.5 mmoL/L (3.5-5.1); Sodium 133 mmol/L (136-145)
[2024-01-21 12:53] LABS: Alanine Aminotransferase 50 U/L (12-78); Anion Gap 11.5 mEq/L (5-15); Aspartate Amino Transferase 48 U/L (14-36); Blood Urea Nitrogen 10 mg/dl (7-17); Carbon Dioxide 31 mmol/L (22.0-30.0); Estimated Glomerular Filt Rate 72 ml/min (>60); GFR (African American) 87 ML/MIN (>60)
[2024-01-21 12:54] LABS: Albumin/Globulin Ratio 1.3 (1.1-1.8); Alkaline Phosphatase 154 U/L (38-126); Bilirubin,Total 0.4 mg/dl (0.2-1.3); Calcium 8.6 mg/dl (8.4-10.2); Globulin 2.8 g/dL (1.3-3.2); Glucose 110 mg/dl (74-100); Total Protein,Serum 6.5 g/dl (6.3-8.2)
[2024-01-21 13:10] LABS: Free Thyroxine Index 2.5 ug/dL (5.93-13.13)
[2024-01-21 13:24] LABS: Thyroid Stimulating Hormone 1.17 uIU/mL (0.465-4.68)
== END 2024-01-21 23:59 | disposition home or self-care (01) ==
PROVIDERS: PCP Internal Medicine Adolescent Medicine; Visit Provider Internal Medicine Adolescent Medicine
DX: I48.0 Paroxysmal atrial fibrillation (principal); Z87.19 Personal history of other diseases of the digestive system
CPT/HCPCS: 36415; 80053; 84436; 84443; 84479; 85025

== ENCOUNTER 2024-02-12 13:35 | Emergency (ER) | payer MEDICARE, OTHER, SELFPAY ==
[2024-02-12 15:08] VITALS: BP 154/80; PULSE 97; RESP 18; TEMP 36.6; O2SAT 99; BMI 33.5
--- NOTE | 2024-02-12 15:10 | EXP.UTC ---
Discharge Plan Disposition Patient Disposition: Home, Self-Care Condition: Good Prescriptions Prescriptions: New methylprednisolone 4 mg Tablets,Dose Pack 4 mg PO DIRECTED 6 Days Qty: 21 0RF Rx Instructions: Take 1 pack as directed for 6 days methocarbamol 500 mg tablet 500 mg PO BIDP PRN (Reason: muscle spasm) Qty: 20 0RF No Action gabapentin 100 mg capsule 100 mg PO DAILY Patient Comments: TAKE 1 CAPSULE BY MOUTH THREE TIMES DAILY ondansetron 4 mg tablet,disintegrating 4 mg PO Q8H PRN (Reason: nausea and vomiting) 4 Days Qty: 12 0RF cephalexin 500 mg capsule 500 mg PO BID 10 Days Qty: 20 0RF levalbuterol tartrate 45 mcg/actuation HFA aerosol inhaler 2 puff INHALATION Q4HP PRN (Reason: Shortness Of Breath) Breztri Aerosphere 160-9-4.8 mcg/actuation HFA aerosol inhaler 2 puff INHALATION BID Patient Comments: INHALE 2 PUFFS TWICE DAILY FOR 30 DAYS losartan 50 mg tablet 50 mg PO DAILY Patient Comments: TAKE 1 TABLET BY MOUTH ONCE DAILY Referrals Follow up/Referrals: Boo Carpenter MD [Primary Care Provider] - See instructions Activity Restrictions/Add. Instructions Additional Instructions/Restrictions: Go home and rest. It would be best if you rested tomorrow too. No heavy lifting. No twisting. Take the oral medications as directed. The muscle relaxer (robaxin-methocarbamol) will make you drowsy, so don't drive or operate heavy machinery after taking it. Don't start the oral steroids (medrol dose pack) until tomorrow, since you had the shots in here today. Follow up with your regular doctor. GO TO THE ER FOR ANY WORSENING SYMPTOMS OR CONCERN, ESPECIALLY BOWEL OR BLADDER ISSUES, SADDLE AREA NUMBNESS, FEVER, ETC Clinical Impressions Clinical Impression: Back muscle spasm, Back pain Instructions Patient Instructions: Ketorolac Injection, Dexamethasone Injection Print Language Print Language: Brazilian Discharge ED Provider: Nagi Fierro [facility] [place] HPI General Stated complaint: back pain, no accident Time Seen by Provider: 02/12/24 15:09 Related Data Home Medications ?Medication ?Instructions ?Recorded ?Confirmed budesonide 160 mcg-glycopyr 9 2 puff inhalation BID Copd 05/06/23 06/11/23 mcg-formot 4.8 mcg/actuation HFA inhaler (Breztri Aerosphere) levalbuterol tartrate 45 2 puff inhalation Q4HP PRN 05/06/23 02/12/24 mcg/actuation aerosol inhaler Shortness Of Breath losartan 50 mg tablet 50 mg PO DAILY High Blood Pressure 05/06/23 02/12/24 gabapentin 100 mg capsule 100 mg PO DAILY 06/11/23 06/11/23 Previous Rx's ?Medication ?Instructions ?Recorded ondansetron 4 mg disintegrating 4 mg PO Q8H PRN nausea and 06/11/23 tablet vomiting 4 days #12 tabs cephalexin 500 mg capsule 500 mg PO BID 10 days #20 caps 06/16/23 methocarbamol 500 mg tablet 500 mg PO BIDP PRN muscle spasm 02/12/24 #20 tabs methylprednisolone 4 mg tablets in 4 mg PO DIRECTED 6 days #21 tabs 02/12/24 a dose pack Allergies Allergy/AdvReac Type Severity Reaction Status Date / Time No Known Allergies Allergy Verified 05/18/23 08:53 [facility] Disclaimer: The information contained in this section may have been updated after the patient was seen, as this information can be updated by other users. 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) Smoking Status: Former smoker tobacco type: cigarettes packs per day: 1 second hand exposure: No alcohol intake: never current occupational status: disabled Travel in the last 8 weeks: None household members: children housing: house current occupational exposures/hazards: No caffeine: Yes Have you lived/traveled outside US in past 30 days?: No Contact w/someone who lives/traveled outside US past 30 days?: No Exposure to someone with infectious disease in past 14 days?: No Do you have a fever (greater than 100.4 F or 38 C)?: No Have you tested positive for COVID-19: No Exposed to someone with COVID-19 in past 14 days?: No Do you have a sore throat?: No Do you have a cough?: No Do you have any weakness?: No Do you have any diarrhea?: No Are you experiencing any unusual bleeding?: No Do you have any muscle aches/pain?: No Do you have any abdominal pain?: No Are you experiencing loss of taste or smell?: No ROS Obtained: Yes All systems reviewed & no additional complaints except as documented Constitutional Constitutional: Denies chills and Denies fever(s) Eyes Eyes: Denies eye discharge ENT Ears, Nose, Mouth, and Throat: Denies dizziness, Denies otalgia, Denies neck pain and Denies sore throat Cardiovascular Cardiovascular: Denies chest pain Respiratory Respiratory: Denies shortness of breath, Denies chest congestion, Denies cough, Denies stridor and Denies wheezing Gastrointestinal Gastrointestingal: Denies nausea or vomiting Musculoskeletal Musculoskeletal: Reports as per HPI, Reports back pain and Denies neck pain Integumentary/Breasts Skin/Breast: Denies rash Neurologic Neurologic: Denies dizziness and Denies paresthesias Allergic/Immunologic Allergic/Immunologic: Denies wheezing Physical Exam General General appearance: alert and in no apparent distress Head Head exam: atraumatic, normocephalic and normal inspection Eye Eye exam: Present normal appearance, PERRL and EOMI ENT ENT exam: Present normal exam, normal oropharynx, mucous membranes moist, TM's normal bilaterally and normal external ear exam Neck Neck exam: Present normal inspection, full ROM and trachea midline; Absent meningismus or lymphadenopathy Chest Chest inspection: Present normal inspection and symmetric chest wall rise; Absent tenderness Respiratory Respiratory exam: Present normal lung sounds bilaterally; Absent respiratory distress Cardiovascular Cardiovascular exam: Present regular rate and normal rhythm; Absent JVD Abdominal Exam Abdominal exam: Present soft and normal bowel sounds; Absent distention, tenderness or guarding Extremities Exam Extremities exam: Present normal inspection, full ROM and normal capillary refill; Absent calf tenderness Back Exam Back exam: Present normal inspection; Absent tenderness Neurological Exam Neurological exam: Present alert, oriented X3, CN II-XII intact, normal gait and reflexes normal; Absent motor sensory deficit Psychiatric Psychiatric exam: Present normal affect and normal mood Skin Skin exam: Present warm, dry, intact and normal color Lymphatic Lymphatic Findings: no adenopathy Medical Decision Making Medical Records Medical records reviewed: No I reviewed the patient's medical records. Screening: Per USPSTF and CDC recommendations, given the prevalence of disease in our region, it is our hospital?s policy to screen for HIV and viral Hepatitis for all patients aged 18 and over and those with ongoing risk factors. [place] Inquiry Pt receiving controlled substance: No
[2024-02-12] MEDS: KETOROLAC 60MG/2ML VIAL 30 MG IM (15:48)
[2024-02-12] MEDS: DEXAMETHASONE 4MG/ML 1ML VIAL 8 MG IM (15:48)
[2024-02-12 16:08] VITALS: BP 154/80; PULSE 97; RESP 18; TEMP 36.6
== END 2024-02-12 16:13 | disposition home or self-care (01) ==
PROVIDERS: Emergency Provider Nurse Practitioner Family; PCP Internal Medicine Adolescent Medicine
DX: M62.830 Muscle spasm of back (principal); M54.9 Dorsalgia, unspecified
CPT/HCPCS: 99212; G0381; J1100; J1885

== ENCOUNTER 2024-02-23 12:30 | Emergency (ER) | payer MEDICARE, OTHER, SELFPAY ==
[2024-02-23 12:31] VITALS: BP 154/53; PULSE 85; RESP 16; TEMP 36.9; O2SAT 100; BMI 33.5
[2024-02-23 13:16] LABS: Coronavirus 19, PCR Not Detected (NotDetected); Influenza A, PCR Not Detected (NotDetected); Influenza B, PCR Not Detected (NotDetected)
[2024-02-23] MEDS: METHOCARBAMOL 500MG TABLET 1500 MG PO (14:28)
[2024-02-23 14:30] LABS: Microscopic, Urine URINE MICROSCOPIC (MICROSCOPIC)
[2024-02-23 14:41] LABS: Albumin Level 4.1 g/dl (3.5-5.0); Chloride 98 mmol/L (98-107)
[2024-02-23 14:42] LABS: Appearance,Urine CLEAR (Clear); Bilirubin,Urine Negative (Negative); Blood, Urine TRACE-I (Negative); Color,Urine YELLOW (Yellow); Glucose,Urine (UA) Negative (Negative); Ketones,Urine 1+ (Negative); Leukocyte Esterase,Urine TRACE (Negative); Nitrate,Urine Negative (Negative); Protein,Urine TRACE (Negative)
[2024-02-23 14:42] LABS: Potassium 4.4 mmoL/L (3.5-5.1); Sodium 126 mmol/L (136-145)
[2024-02-23 14:44] LABS: Alanine Aminotransferase 20 U/L (12-78); Anion Gap 12.4 mEq/L (5-15); Aspartate Amino Transferase 30 U/L (14-36); Blood Urea Nitrogen 6 mg/dl (7-17); Carbon Dioxide 20 mmol/L (22.0-30.0); Creatinine Clearance Estimated 81 mL/min (50-200); Estimated Glomerular Filt Rate 55 ml/min (>60); GFR (African American) 67 ML/MIN (>60)
[2024-02-23 14:45] LABS: Albumin/Globulin Ratio 1.5 (1.1-1.8); Alkaline Phosphatase 110 U/L (38-126); Bilirubin,Total 0.6 mg/dl (0.2-1.3); Calcium 9.5 mg/dl (8.4-10.2); Globulin 2.8 g/dL (1.3-3.2); Glucose 99 mg/dl (74-100); Total Protein,Serum 6.9 g/dl (6.3-8.2)
[2024-02-23 14:56] LABS: Basophils % 0.5 % (0.1-2.0); Hematocrit 28.5 % (37.0-47.0); Hemoglobin 8.6 g/dL (12.2-16.2); Lymphocytes % 14.4 % (10-50); Mean Corpuscular HGB Conc 30.2 g/dL (31.8-35.4); Mean Corpuscular Volume 72.9 fl (81-99); Mean Platelet Volume 10.8 fl (7.4-10.4); Monocytes % 8.8 % (1.7-9.3); Neutrophils % 72.8 % (37.0-80.0); Platelet Count 102 K/mm3 (142-424); Red Blood Count 3.91 M/mm3 (4.20-5.40); Red Cell Distribution Width 16.9 % (11.5-17.5); White Blood Count 8.4 K/mm3 (4.8-10.8)
[2024-02-23 14:57] LABS: Eosinophils # 0.3 K/mm3 (0.0-0.4); Lymphocytes # 1.2 K/mm3 (0.7-4.5); Monocytes # 0.7 K/mm3 (0.1-1.0); Neutrophils # 6.1 K/mm3 (1.8-7.8)
--- NOTE | 2024-02-23 15:10 | ED_ITS ---
Discharge Plan Disposition Patient Disposition: Home, Self-Care Prescriptions Prescriptions: New prednisone 20 mg tablet 20 mg PO DAILY 5 Days Qty: 5 0RF amoxicillin-pot clavulanate 875-125 mg tablet 1 tab PO BID 7 Days Qty: 14 0RF azithromycin 500 mg tablet 500 mg PO DAILY 2 Days Qty: 2 0RF Rx Instructions: start on day 2 of therapy albuterol sulfate 90 mcg/actuation HFA aerosol inhaler 2 inh inhalation Q4H PRN (Reason: shortness of breath or wheezing) Qty: 8.5 2RF methocarbamol 750 mg tablet 1,500 mg PO TID 5 Days Qty: 30 0RF No Action gabapentin 100 mg capsule 100 mg PO DAILY Patient Comments: TAKE 1 CAPSULE BY MOUTH THREE TIMES DAILY ondansetron 4 mg tablet,disintegrating 4 mg PO Q8H PRN (Reason: nausea and vomiting) 4 Days Qty: 12 0RF cephalexin 500 mg capsule 500 mg PO BID 10 Days Qty: 20 0RF levalbuterol tartrate 45 mcg/actuation HFA aerosol inhaler 2 puff INHALATION Q4HP PRN (Reason: Shortness Of Breath) Breztri Aerosphere 160-9-4.8 mcg/actuation HFA aerosol inhaler 2 puff INHALATION BID Patient Comments: INHALE 2 PUFFS TWICE DAILY FOR 30 DAYS losartan 50 mg tablet 50 mg PO DAILY Patient Comments: TAKE 1 TABLET BY MOUTH ONCE DAILY methylprednisolone 4 mg Tablets,Dose Pack 4 mg PO DIRECTED 6 Days Qty: 21 0RF Rx Instructions: Take 1 pack as directed for 6 days methocarbamol 500 mg tablet 500 mg PO BIDP PRN (Reason: muscle spasm) Qty: 20 0RF methocarbamol 500 mg tablet 500 mg PO TID PRN (Reason: muscle sprasm) Qty: 21 0RF Referrals Follow up/Referrals: Boo Carpenter MD [Primary Care Provider] - See instructions Clinical Impressions Clinical Impression: Acute exacerbation of chronic obstructive pulmonary disease, Multifocal pneumonia, Acute hyponatremia Print Language Print Language: Paraguayan Discharge ED Provider: Tim[facility] HPI General Chief complaint: PAIN Stated complaint: nausea back pain Time Seen by Provider: 02/23/24 12:45 Mode of Arrival: Ambulatory Source of Information: Patient Limitations: No Limitations Description of Symptoms (Recalled from ER Triage Doc. by RN): PT TO THE ED WITH NAUSEA, POST NASAL DRIP AND BACK PAIN. 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 PT DENIES ANY VOMINTING, CHEST PAIN, SOB OR NEW INJURY TO BACK. History of Present Illness HPI narrative: Please note that above description of symptoms, in this electronic medical record under categorization of recalled from ER triage doctor by RN are reflective of an initial nursing assessment, however, is not reflective of my full history and physical exam that was personally taken and clarified. Consequentially, this preceding description of symptoms, which may include the patient's categorized chief complaint in the EMR, do not reflect my personal clinical impression, and the ultimate description of history of present illness and patient stated complaints should be deferred to this section of the note. Unless stated otherwise or congruent with this section of the note, additional signs, symptoms, or incongruence should be interpreted as inaccurate with my clinical impression. Related Data Home Medications ?Medication ?Instructions ?Recorded ?Confirmed budesonide 160 mcg-glycopyr 9 2 puff inhalation BID Copd 05/06/23 06/11/23 mcg-formot 4.8 mcg/actuation HFA inhaler (Breztri Aerosphere) levalbuterol tartrate 45 2 puff inhalation Q4HP PRN 05/06/23 02/12/24 mcg/actuation aerosol inhaler Shortness Of Breath losartan 50 mg tablet 50 mg PO DAILY High Blood Pressure 05/06/23 02/12/24 gabapentin 100 mg capsule 100 mg PO DAILY 06/11/23 06/11/23 Previous Rx's ?Medication ?Instructions ?Recorded ondansetron 4 mg disintegrating 4 mg PO Q8H PRN nausea and 06/11/23 tablet vomiting 4 days #12 tabs cephalexin 500 mg capsule 500 mg PO BID 10 days #20 caps 06/16/23 methocarbamol 500 mg tablet 500 mg PO BIDP PRN muscle spasm 02/12/24 #20 tabs methylprednisolone 4 mg tablets in 4 mg PO DIRECTED 6 days #21 tabs 02/12/24 a dose pack methocarbamol 500 mg tablet 500 mg PO TID PRN muscle sprasm 02/20/24 #21 tabs albuterol sulfate 90 mcg/actuation 2 inh inhalation Q4H PRN shortness 02/23/24 aerosol inhaler of breath or wheezing #8.5 grams amoxicillin 875 mg-potassium 1 tab PO BID 7 days #14 tabs 02/23/24 clavulanate 125 mg tablet azithromycin 500 mg tablet 500 mg PO DAILY 2 days #2 tabs 02/23/24 methocarbamol 750 mg tablet 1,500 mg (2 x 750 mg) PO TID 5 02/23/24 days #30 tabs prednisone 20 mg tablet 20 mg PO DAILY 5 days #5 tabs 02/23/24 Allergies Allergy/AdvReac Type Severity Reaction Status Date / Time No Known Allergies Allergy Verified 05/18/23 08:53 [facility] Disclaimer: The information contained in this section may have been updated after the patient was seen, as this information can be updated by other users. 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: No Exposure to someone with infectious disease in past 14 days?: No Do you have a fever (greater than 100.4 F or 38 C)?: No Have you tested positive for COVID-19: No Exposed to someone with COVID-19 in past 14 days?: No Do you have a sore throat?: No Do you have a cough?: No Do you have any weakness?: No Do you have any diarrhea?: No Are you experiencing any unusual bleeding?: No Do you have any muscle aches/pain?: No Do you have any abdominal pain?: No Are you experiencing loss of taste or smell?: No Other 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 Have you received the Flu Vaccine for this season: No Have you received the Pneumonia Vaccine: Yes ROS Obtained: Yes All systems reviewed & no additional complaints except as documented Physical Exam General General appearance: alert Head Head exam: atraumatic and normocephalic Eye Eye exam: Present normal appearance, PERRL and EOMI Neck Neck exam: Present normal inspection, full ROM and trachea midline Respiratory Respiratory exam: Absent respiratory distress, wheezes, stridor, accessory muscle use or prolonged expiratory phase Cardiovascular Cardiovascular exam: Present other (Pulses equal symmetric in upper and lower extremities) Abdominal Exam Abdominal exam: Present soft; Absent distention, tenderness or pulsatile mass Extremities Exam Extremities exam: Absent edema Back Exam Back exam: Present paraspinal tenderness (Right-sided paraspinal muscle tenderness) Neurological Exam Neurological exam: Present alert, oriented X3 and CN II-XII intact; Absent motor sensory deficit Skin Skin exam: Present warm and dry; Absent diaphoresis or erythema Medical Decision Making Medical Records Medical records reviewed: Yes I reviewed the patient's medical records. Screening: Per USPSTF and CDC recommendations, given the prevalence of disease in our region, it is our hospital?s policy to screen for HIV and viral Hepatitis for all patients aged 18 and over and those with ongoing risk factors. [place] Inquiry Pt receiving controlled substance: No [place] was queried for this patient: No Vital Signs: 02/23/24 12:31 Temperature 98.4 F Temperature Source Oral Pulse Rate [Left Radial] 85 Respiratory Rate 16 Blood Pressure [Right Arm] 154/53 H Blood Pressure Mean [Right Arm] 86 Blood Pressure Source [Right Arm] Automatic Cuff Blood Pressure Position [Right Arm] Sitting 02 Sat by Pulse Oximetry 100 Oxygen Delivery Method Room Air Lab Data Lab Results 02/23/24 13:12: SARS-CoV-2 (PCR) Not detected, Influenza A Untype (PCR) Not detected, Influenza Type B (PCR) Not detected 02/23/24 14:24: Urine Color Yellow, Urine Appearance Clear, Urine pH 6.0, Ur Specific [place] 1.020, Urine Protein Trace, Urine Glucose (UA) Negative, Urine Ketones 1+, Urine Blood Trace-i, Urine Nitrate Negative, Urine Bilirubin Negative, Urine Urobilinogen 1.0, Ur Leukocyte Esterase Trace, Urine RBC Occasional, Urine WBC 5-10, Ur Squamous Epith Cells Occasional, Urine Bacteria Trace 02/23/24 14:28: WBC 8.4, RBC 3.91 L, Hgb 8.6 L, Hct 28.5 L, MCV 72.9 L, MCH 22.0 L, MCHC 30.2 L, RDW 16.9, Plt Count 102 L, MPV 10.8 H, Neut % (Auto) 72.8, Lymph % (Auto) 14.4, Bath % (Auto) 8.8, Eos % (Auto) 3.0, Baso % (Auto) 0.5, Neut # (Auto) 6.1, Lymph # (Auto) 1.2, Bath # (Auto) 0.7, Eos # (Auto) 0.3, Baso # (Auto) 0.0, Sodium 126 L, Potassium 4.4, Chloride 98, Carbon Dioxide 20 L, Anion Gap 12.4, BUN 6 L, Creatinine 1.00, Estimated Creat Clear 81, Estimated GFR 55 L , Est GFR ( Amer) 67, Glucose 99, Calcium 9.5, Total Bilirubin 0.6, AST 30, ALT 20, Alkaline Phosphatase 110, Total Protein 6.9, Albumin 4.1, Globulin 2.8, Albumin/Globulin Ratio 1.5 02/23/24 14:28 02/23/24 14:28 Orders (Tests/Meds): ED MEDICATIONS Discontinued Medications Generic Name Dose Route Start Last Admin Trade Name Freq PRN Reason Stop Dose Admin Amoxicillin/Clavulanate Potassium 1 each 02/23/24 15:36 Amoxicillin/Clavulanate Potassium 875/125mg Tablet PO 02/23/24 15:37 ONCE ONE Azithromycin 500 mg 02/23/24 15:36 Azithromycin 250mg Tablet PO 02/23/24 15:37 ONCE ONE Methocarbamol 1,500 mg 02/23/24 13:43 02/23/24 14:28 Methocarbamol 500mg Tablet PO 02/23/24 13:44 1,500 mg ONCE ONE Administration ORDERS Category Date Time Status CXR --portable [XR chest portable] Stat Exams 02/23/24 15:11 Taken CBC w/Auto Diff [Complete Blood Count Auto Diff] Stat Lab 02/23/24 14:28 Completed CMP [Comprehensive Metabolic Panel] Stat Lab 02/23/24 14:28 Completed Rapid PCR Covid and Flu A/B Stat Lab 02/23/24 13:12 Completed UA [Urinalysis and Microscopic] Stat Lab 02/23/24 14:24 Completed Medical Decision Narrative: 68-year-old female OPD on home oxygen, chronic back pain presenting with cough and back spasm. Patient states that she has been having coughing symptoms for the last couple of days, now having right-sided back spasms from all the coughing. Nonproductive cough, no fevers or chills, no other acute symptoms. History was obtained via conversation with patient. On arrival, patient hemodynamically stable, alert, oriented x4, appropriate, GCS 15, moving all extremities spontaneously, pupils equal and reactive to light. Full physical exam performed and significant for uncomfortable appearing woman who was leaning over the table in the room due to back pain. Right sided paraspinal muscle tenderness and spasm. No midline tenderness. Lungs are clear bilaterally without wheezes, rales, or rhonchi. Differential includes COPD exacerbation, bronchitis, pneumonia, back spasm, UTI, nephrolithiasis, among others. Patient was given Robaxin p.o. for symptomatic management and correction of underlying abnormalities. Workup independently interpreted and significant for nonactionable CBC, chemistry other than new onset hyponatremia 126. Urinalysis negative. On independent interpretation of imaging, patient appears to have multifocal pneumonia. See radiology read for full review of final results. On reevaluation, feeling much better with meds that were given here and able to sit with minimal discomfort. Legionella antigen was sent. Given patient presentation, workup, history, this most likely represents multifocal pneumonia, COPD exacerbation, and muscular spasms. Patient states she has been eating less salt because it lennon her tongue in the setting of being on Breztri inhaler. Recommended that she continue supplementing with salt as she needs. Also recommended she take both antibiotics. She voiced her understanding. Prednisone also sent to pharmacy. Patient also requesting refill on as needed albuterol inhaler, this was also sent. Because patient at baseline without signs or symptoms of clinical decompensation, deemed appropriate for discharge. Results were relayed to patient who voiced understanding and were agreeable to outpatient management and follow up. I discussed my clinical impression with patient and answered all questions. At this time, the evidence for any other entities in the differential is insufficient to warrant any further testing or ED observation. This was explained as well. Advisory was given that persistent or worsening symptoms require further evaluation. I confirmed the understanding of this discussion. [employer] disclaimer Much of this encounter note is an electronic frame carver spindle spoken language to printed text. Electronic frame carver spindle of the spoken language may permit errors. Although I have reviewed the note, some errors may still exist. Critical Care Critical Care Time Critical Care Time: No
--- NOTE | 2024-02-23 15:11 | XR_ITS ---
FINAL REPORT CLINICAL HISTORY: Acute cough, copd, back spasm COMPARISON: 05/06/2023 FINDINGS: A single view of the chest was obtained. The heart is normal in size. The mediastinum is unremarkable. Lucency in the bilateral upper lobes is probably related to centrilobular emphysema. There is scarring at the lung bases. An ill-defined opacity in the left apex is new from the prior exam. There is no pleural effusion. There is no pneumothorax. There is no acute osseous abnormality. IMPRESSION: Ill-defined opacity in left apex is new from the prior exam. Infused thoracic CT is recommended to better characterize. Reviewed, Interpreted and Dictated by Steve Camejo MD Transcribed by Billie Gunn Authenticated and [facility]
[2024-02-23 15:14] LABS: RBC,Urine Occasional #/hpf (0-3); Squamous Epithelial Cell,Urine Occasional #/hpf (0-5)
[2024-02-23 15:15] LABS: Bacteria,Urine Trace /lpf
[2024-02-23] MEDS: AZITHROMYCIN 250MG TABLET 500 MG PO (15:40)
[2024-02-23] MEDS: AMOXICILLIN/CLAVULANATE POTASSIUM 875/125MG TABLET 1 EACH PO (15:40)
[2024-02-23 15:50] VITALS: BP 150/62; PULSE 80; RESP 18; TEMP 36.8; O2SAT 3
[2024-02-27 16:12] LABS: Legionella pneumophila Urinary Negative (Negative)
== END 2024-02-23 15:50 | disposition home or self-care (01) ==
PROVIDERS: Emergency Provider Emergency Medicine; PCP Internal Medicine Adolescent Medicine
DX: E87.1 Hypo-osmolality and hyponatremia (principal); J18.9 Pneumonia, unspecified organism; J44.1 Chronic obstructive pulmonary disease with (acute) exacerbation; M54.9 Dorsalgia, unspecified; R11.0 Nausea
CPT/HCPCS: 71045; 80053; 81001; 85025; 87636; 99283

== ENCOUNTER 2024-06-15 10:37 | Emergency (ER) | payer MEDICARE, OTHER, SELFPAY ==
[2024-06-15 10:58] VITALS: BP 105/65; PULSE 89; RESP 22; TEMP 37.6; O2SAT 96; BMI 27.4
--- NOTE | 2024-06-15 10:59 | PC.NURSE ---
Dr Way at bedside
--- NOTE | 2024-06-15 11:03 | XR_ITS ---
FINAL REPORT TECHNIQUE: Chest PA & Lateral CLINICAL HISTORY: New productive cough, COPD history COMPARISON: 02/23/2024 FINDINGS: 2 views of the chest were performed. The heart is at the upper limits of normal in size. The mediastinum is within normal limits. There is some patchy airspace opacity in the right lower lobe, which is new since previous exam, probably related to a developing focus of pneumonia. There is scarring at the left lung base. There are no pleural effusions. There is no pneumothorax. The bony thorax appears intact. IMPRESSION: Right lower lobe patchy airspace opacity, probable developing focus of pneumonia. Reviewed, Interpreted and Dictated by Steve Camejo MD Transcribed by Vivian Dykes Authenticated and [facility]
[2024-06-15 11:08] VITALS: BP 95/63; PULSE 93; O2SAT 94
--- NOTE | 2024-06-15 11:17 | ED_ITS ---
Discharge Plan Disposition Patient Disposition: Home, Self-Care Prescriptions Prescriptions: New doxycycline hyclate 100 mg capsule 100 mg PO BID 5 Days Qty: 10 0RF dexamethasone 6 mg tablet 6 mg PO DAILY Qty: 5 0RF No Action gabapentin 100 mg capsule 100 mg PO DAILY Patient Comments: TAKE 1 CAPSULE BY MOUTH THREE TIMES DAILY ondansetron 4 mg tablet,disintegrating 4 mg PO Q8H PRN (Reason: nausea and vomiting) 4 Days Qty: 12 0RF cephalexin 500 mg capsule 500 mg PO BID 10 Days Qty: 20 0RF levalbuterol tartrate 45 mcg/actuation HFA aerosol inhaler 2 puff INHALATION Q4HP PRN (Reason: Shortness Of Breath) Breztri Aerosphere 160-9-4.8 mcg/actuation HFA aerosol inhaler 2 puff INHALATION BID Patient Comments: INHALE 2 PUFFS TWICE DAILY FOR 30 DAYS losartan 50 mg tablet 50 mg PO DAILY Patient Comments: TAKE 1 TABLET BY MOUTH ONCE DAILY methylprednisolone 4 mg Tablets,Dose Pack 4 mg PO DIRECTED 6 Days Qty: 21 0RF Rx Instructions: Take 1 pack as directed for 6 days methocarbamol 500 mg tablet 500 mg PO BIDP PRN (Reason: muscle spasm) Qty: 20 0RF methocarbamol 500 mg tablet 500 mg PO TID PRN (Reason: muscle sprasm) Qty: 21 0RF prednisone 20 mg tablet 20 mg PO DAILY 5 Days Qty: 5 0RF amoxicillin-pot clavulanate 875-125 mg tablet 1 tab PO BID 7 Days Qty: 14 0RF azithromycin 500 mg tablet 500 mg PO DAILY 2 Days Qty: 2 0RF Rx Instructions: start on day 2 of therapy albuterol sulfate 90 mcg/actuation HFA aerosol inhaler 2 inh inhalation Q4H PRN (Reason: shortness of breath or wheezing) Qty: 8.5 2RF methocarbamol 750 mg tablet 1,500 mg PO TID 5 Days Qty: 30 0RF Referrals Follow up/Referrals: Boo Carpenter MD [Primary Care Provider] - See instructions Activity Restrictions/Add. Instructions Additional Instructions/Restrictions: Antibiotic and steroid for the next 5 days. While taking doxycycline, limit sunlight exposure. It can cause severe sunburns even if you do not typically get sunburn. Be sure to wear hats, long sleeves, sunscreen if you are out in the sun for prolonged periods of time while taking doxycycline. Call your family doctor to establish care for this visit to the emergency department and schedule follow-up within 48 hours to ensure improvement. If you have any worsening of your condition or any other concerning signs or symptoms, return to the emergency department or your primary care doctor for further evaluation. Clinical Impressions Clinical Impression: Right lower lobe pneumonia Print Language Print Language: Namibian Discharge ED Provider: [facility] Adult HPI General Chief complaint: Upper Respiratory Infection Stated complaint: congestion cough soa nausea Time Seen by Provider: 06/15/24 10:41 Mode of Arrival: Family Vehicle Source of Information: Patient, Spouse and Medical Record Description of Symptoms (Recalled from ER Triage Doc. by RN): Pt c/o being severly congested , excessive mucous & productive cough, and chills. States she gets bronchitis all the time and worried about it turning into pneumonia . Denies any increased SOA. She is on 2LPM NC all the time d/t COPD. History of Present Illness HPI narrative: Please note that above description of symptoms, in this electronic medical record under categorization of recalled from ER triage doctor by RN are reflective of an initial nursing assessment, however, is not reflective of my full history and physical exam that was personally taken and clarified. Consequentially, this preceding description of symptoms, which may include the patient's categorized chief complaint in the EMR, do not reflect my personal clinical impression, and the ultimate description of history of present illness and patient stated complaints should be deferred to this section of the note. Unless stated otherwise or congruent with this section of the note, additional signs, symptoms, or incongruence should be interpreted as inaccurate with my clinical impression. Related Data Home Medications ?Medication ?Instructions ?Recorded ?Confirmed budesonide 160 mcg-glycopyr 9 2 puff inhalation BID Copd 05/06/23 06/11/23 mcg-formot 4.8 mcg/actuation HFA inhaler (Breztri Aerosphere) levalbuterol tartrate 45 2 puff inhalation Q4HP PRN 05/06/23 02/12/24 mcg/actuation aerosol inhaler Shortness Of Breath losartan 50 mg tablet 50 mg PO DAILY High Blood Pressure 05/06/23 02/12/24 gabapentin 100 mg capsule 100 mg PO DAILY 06/11/23 06/11/23 Previous Rx's ?Medication ?Instructions ?Recorded ondansetron 4 mg disintegrating 4 mg PO Q8H PRN nausea and 06/11/23 tablet vomiting 4 days #12 tabs cephalexin 500 mg capsule 500 mg PO BID 10 days #20 caps 06/16/23 methocarbamol 500 mg tablet 500 mg PO BIDP PRN muscle spasm 02/12/24 #20 tabs methylprednisolone 4 mg tablets in 4 mg PO DIRECTED 6 days #21 tabs 02/12/24 a dose pack methocarbamol 500 mg tablet 500 mg PO TID PRN muscle sprasm 02/20/24 #21 tabs albuterol sulfate 90 mcg/actuation 2 inh inhalation Q4H PRN shortness 02/23/24 aerosol inhaler of breath or wheezing #8.5 grams amoxicillin 875 mg-potassium 1 tab PO BID 7 days #14 tabs 02/23/24 clavulanate 125 mg tablet azithromycin 500 mg tablet 500 mg PO DAILY 2 days #2 tabs 02/23/24 methocarbamol 750 mg tablet 1,500 mg (2 x 750 mg) PO TID 5 02/23/24 days #30 tabs prednisone 20 mg tablet 20 mg PO DAILY 5 days #5 tabs 02/23/24 dexamethasone 6 mg tablet 6 mg PO DAILY #5 tabs 06/15/24 doxycycline hyclate 100 mg capsule 100 mg PO BID 5 days #10 caps 06/15/24 Allergies Allergy/AdvReac Type Severity Reaction Status Date / Time No Known Allergies Allergy Verified 05/18/23 08:53 [facility] Disclaimer: The information contained in this section may have been updated after the patient was seen, as this information can be updated by other users. 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 (Reviewed 06/11/23 @ 14:42 by Lexi Cuello ([facility]), MACHINE DYER) History of hypertension Atrial fibrillation Surgical History (Reviewed 06/11/23 @ 14:42 by Lexi Cuello ([facility]), MACHINE DYER) History of esophagogastroduodenoscopy (EGD) History of bilateral tubal ligation Family History (Reviewed 06/11/23 @ 14:42 by Lexi Cuello ([facility]), MACHINE DYER) Family history of myocardial infarction Father Lung cancer Mother Social History (Reviewed 06/11/23 @ 14:42 by Lexi Cuello ([facility]), MACHINE DYER) Smoking Status: Never smoker second hand exposure: No alcohol intake: never current occupational status: disabled Travel in the last 8 weeks: None household members: children housing: house current occupational exposures/hazards: No caffeine: Yes Have you lived/traveled outside [place] in past 30 days?: No Contact w/someone who lives/traveled outside US past 30 days?: No Exposure to someone with infectious disease in past 14 days?: No Do you have a fever (greater than 100.4 F or 38 C)?: No Have you tested positive for COVID-19: No Exposed to someone with COVID-19 in past 14 days?: No Do you have a sore throat?: No Do you have a cough?: No Do you have any weakness?: No Do you have any diarrhea?: No Are you experiencing any unusual bleeding?: No Do you have any muscle aches/pain?: No Do you have any abdominal pain?: No Are you experiencing loss of taste or smell?: No Other 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 Have you received the Flu Vaccine for this season: No Have you received the Pneumonia Vaccine: Yes ROS Obtained: Yes All systems reviewed & no additional complaints except as documented Physical Exam General General appearance: alert Head Head exam: atraumatic and normocephalic Eye Eye exam: Present normal appearance, PERRL and EOMI Neck Neck exam: Present normal inspection, full ROM and trachea midline Respiratory Respiratory exam: Present normal lung sounds bilaterally and other (Intermittently coughing); Absent respiratory distress, wheezes, stridor, accessory muscle use or prolonged expiratory phase Cardiovascular Cardiovascular exam: Present regular rate, normal rhythm and other (Pulses equal symmetric in upper and lower extremities) Abdominal Exam Abdominal exam: Present soft; Absent distention, tenderness or pulsatile mass Extremities Exam Extremities exam: Absent edema Neurological Exam Neurological exam: Present alert, oriented X3 and CN II-XII intact; Absent motor sensory deficit Skin Skin exam: Present warm and dry; Absent diaphoresis or erythema Medical Decision Making Medical Records Medical records reviewed: Yes I reviewed the patient's medical records. Screening: Per USPSTF and CDC recommendations, given the prevalence of disease in our region, it is our hospital?s policy to screen for HIV and viral Hepatitis for all patients aged 18 and over and those with ongoing risk factors. [place] Inquiry Pt receiving controlled substance: No S[place] was queried for this patient: No Vital Signs: 06/15/24 10:58 06/15/24 11:08 06/15/24 11:52 Temperature 99.6 F Temperature Source Oral Pulse Rate 93 H 75 Pulse Rate [Right] 89 Respiratory Rate 22 16 Blood Pressure 95/63 L 109/60 L Blood Pressure [Right Arm] 105/65 L Blood Pressure Mean [Right Arm] 78 Blood Pressure Source [Right Arm] Automatic Cuff 02 Sat by Pulse Oximetry 96 94 L 95 Oxygen Delivery Method Nasal Cannula Nasal Cannula Oxygen Flow Rate (LPM) 2 2 Orders (Tests/Meds): ED MEDICATIONS Discontinued Medications Generic Name Dose Route Start Last Admin Trade Name Freq PRN Reason Stop Dose Admin Ondansetron HCl 4 mg 06/15/24 11:21 06/15/24 11:44 Ondansetron 4mg Odt SL 06/15/24 11:22 4 mg ONCE ONE Administration ORDERS Category Date Time Status CXR 2 view (NOT portable) [XR chest 2V] Stat Exams 06/15/24 11:03 Completed Medical Decision Narrative: 69-year-old female history of COPD on 2 L nasal cannula not still smoking presenting with cough. She states that she gets bronchitis and pneumonia very easily, so started coughing a couple days prior to this and feeling congested, came in for further evaluation. She states that the cough is productive of thick, yellow to clear sputum but not every time she coughs. No chest pain, she is feeling a little short of breath. No fevers, but has felt chilled, which responds to blankets. History was obtained via conversation with patient. On arrival, patient hemodynamically stable, alert, oriented x4, appropriate, GCS 15, moving all extremities spontaneously, pupils equal and reactive to light. Full physical exam performed and significant for very clinically well-appearing female no acute distress. She is borderline hypotensive, but nontachycardic. She does state that she has not eaten or drank much in the last 48 hours due to nausea. Differential includes bronchitis, pneumonia, mild COPD exacerbation, among others. Patient placed on continuous cardiac monitoring and continuous pulse ox with initial blood pressure 105/65, heart rate 89, saturation 96% on 2 L. Patient was given Zofran p.o. for symptomatic management and correction of underlying abnormalities. Workup independently interpreted and significant for right lower lobe patchy opacities consistent with early pneumonia versus atelectasis. On reevaluation, patient resting comfortably. Given doxycycline and dexamethasone. given patient presentation, workup, history, this most likely represents mild COPD exacerbation in the setting of early pneumonia. Because patient at baseline without signs or symptoms of clinical decompensation, deemed appropriate for discharge. Results were relayed to patient who voiced understanding and were agreeable to outpatient management and follow up. I discussed my clinical impression with patient and answered all questions. At this time, the evidence for any other entities in the differential is insufficient to warrant any further testing or ED observation. This was explained as well. Advisory was given that persistent or worsening symptoms require further evaluation. I confirmed the understanding of this discussion. Financial Economist disclaimer Much of this encounter note is an electronic purchasing department clerk spoken language to printed text. Electronic purchasing department clerk of the spoken language may permit errors. Although I have reviewed the note, some errors may still exist. Critical Care Critical Care Time Critical Care Time: No
[2024-06-15] MEDS: ONDANSETRON 4MG ODT 4 MG SL (11:44)
[2024-06-15 11:52] VITALS: BP 109/60; PULSE 75; RESP 16; O2SAT 95
--- NOTE | 2024-06-15 12:26 | PC.NURSE ---
Called radiology to check on status of cxr. instrumentation technologist states it is locked and should be read shortly. Dr Way updated with this.
--- NOTE | 2024-06-15 12:30 | PC.NURSE ---
Dr Way is s/w Dr Houser
[2024-06-15] MEDS: DEXAMETHASONE 4MG TABLET 10 MG PO (13:21)
[2024-06-15] MEDS: DOXYCYCLINE HYCL 100 MG TABLET PO (13:21)
[2024-06-15 13:22] VITALS: BP 128/73; PULSE 82; RESP 20; TEMP 37.2; O2SAT 97
== END 2024-06-15 13:27 | disposition home or self-care (01) ==
PROVIDERS: Emergency Provider Emergency Medicine; PCP Internal Medicine Adolescent Medicine
DX: J44.0 Chronic obstructive pulmonary disease with (acute) lower respiratory infection (principal); J18.9 Pneumonia, unspecified organism; R06.02 Shortness of breath; Z99.81 Dependence on supplemental oxygen
CPT/HCPCS: 71046; 99283; J8540; Q0162

== ENCOUNTER 2024-10-04 09:59 | Outpatient (CLI) | payer MEDICARE, OTHER, SELFPAY ==
--- NOTE | 2024-10-04 | CT_ITS ---
FINAL REPORT TECHNIQUE: Axial images were obtained from the lung apex to the mid abdomen by computed tomography. This study was performed with techniques to keep radiation doses as low as reasonably achievable (ALARA). Individualized dose reduction techniques using automated exposure control or adjustment of mA and/or kV according to the patient's size were employed. CLINICAL HISTORY: SCREENING FORMER SMOKER QUIT 10 YEARS AGO, 1PPD X53 YEARS COMPARISON: 05/06/2023 FINDINGS: CHEST CT LOW DOSE CTDI vol (mGy): 2.90 DLP (mGy-cm): 105.25 There are a few small scattered mediastinal lymph nodes. Individual nodes measure up to 1.3 cm. These are more numerous than typically seen. Subcarinal nodes have decreased in size since prior exam. The heart is normal in size. There is no pericardial or pleural effusion. There is scarring in the right middle lobe and lingula. Tiny nodular densities are seen at the left base. A focus on image 62, series 3 measures 4 mm. There is a 3 mm pleural-based focus more posteriorly on image 62, series 3. There is a nodular density at the medial right base measuring 6 mm in greatest dimension. Finding is best seen on image 56 of series 601. Limited images of the upper abdomen are unremarkable. IMPRESSION: Nodular density medial right base measures 6 mm. Other pulmonary nodules as detailed above. Lung RADS category 3. Recommend 6 month follow-up low-dose chest CT. Reviewed, Interpreted and Dictated by Steve Camejo MD Transcribed by Samantha Logan Authenticated and . [facility]
--- OUTSIDE RECORDS SUMMARY | 2024-10-04 10:08 | XMS_ITS | Clinical Summary ---
Author Organization [facility] are -[place] Address [address] [place] [address] Phone Care Team Providers Care Scaffolding Helper Name Role Phone Rosa BEAVER Nasrin Meena Primary Care Physician + Conditions or Problems Problem Name Problem Code Onset Date Status Entry Date Provider Comment Standard Description Annotate Cerumen 683836848 (SNOMED CT) 04/20 Inactive 04/22 Nasrin Meenaarcenio Lee TILE BURNER Wax in ear canal Wellness examination , routine medical [id number] (SNOMED CT) 04/20 Inactive 04/20 Nasrin Meena Lee TILE BURNER Encounter for check up Gastroenter itis, viral 143688302 (SNOMED CT) 04/20 Inactive 04/20 Nasrin Meena Lee TILE BURNER Viral gastroenteritis Screening, colon cancer 255406613 (SNOMED CT) 04/20 Inactive 04/20 Nasrin Meena Lee TILE BURNER Screening for malignant neoplasm of colon Mammogram yearly screening 40311782 (SNOMED CT) 04/20 Inactive 04/20 Nasrin Meena Lee TILE BURNER Screening mammography Medications Medication Instructions Start Date Stop Date Generic Name [facility] Provider ZOFRAN 4 MG ORAL TABLET TAKE 1 TABLET BY MOUTH EVERY 6 HOURS NEEDED FOR NAUSEA 1 ONDANSETRON HCL [id number] Nasrin Meena Lee TILE BURNER Medications Administered No information available. Allergies, Adverse Reactions, Alerts Observed no known allergies at Results No information available. Plan of Care Type Date Detail Referral Surgery Jayden carvajal MD [facility], [address] [facility] [place], [address] Referral Surgery Jayden carvajal MD [facility], [address] [facility] [address] [place], [place], [address] Referral excluded fr om report: Pending order Mammogram Pending order CBC no diff Pending order CMP Pending order Lipid Panel Pending order TSH reflex to fr ee T4 Pending order TSH reflex to fr ee T4 Pending Order exclud ed from report: Pending order Lipid Panel Pending Order exclud ed from report: Pending order CMP Pending Order exclud ed from report: Pending order CBC no diff Pending Order exclud ed from report: Pending order Mammogram Pending Order exclud ed from report: Procedures Code Procedure Name Date Entry Date [facility] Test # TSH reflex to free T4 57783 [facility] Test # Lipid Panel 1 [id number] [facility] Test # CMP 1 [facility]# [id number] CBC no diff Mammo LAUREL Mammogram Surgery Surgery Jayden Gibbs MD [facility]-[id number] Medication Reconciliation [facility]-[id number] Giving encouragement to exercise [id number] Remove Impacted Cerumen 1 or 2 ears [id number] Vital Signs Date Name Value Unit Description BMI (Body Mass Index) 28.02 kg/m2 Bod y Mass Index (Ratio) Body Temperature 98.6 [degF] temperat ure E&M Body Temperature 37 Trudy temperat ure in centigrade E&M BP Diastolic 70 mm[Hg] blood pressu re, diastolic BP Systolic 103 mm[Hg] blood pressur e, systolic BSA (Body Surface Area) 1.91 b merritt surface area Heart Rate 93 /min pulse rate Height 66 [in_us] height E&M Height 167.64 cm height in cent imeters E&M Respiratory Rate 16 /min respirat ory rate E&M Weight Measured 173 [lb_av] weight E& M Weight Measured 173 [lb_av] weight E& M Weight Measured 78.64 kg weight in kilograms E&M Immunizations No information available. Advance Directives Directive Description Start Date DISCUSSED - NO DECISION MADE
== END 2024-10-04 23:59 | disposition home or self-care (01) ==
LOC: RAD 10:00
PROVIDERS: PCP Internal Medicine Adolescent Medicine; Visit Provider Nurse Practitioner Family
DX: Z12.2 Encounter for screening for malignant neoplasm of respiratory organs (principal); R91.8 Other nonspecific abnormal finding of lung field; Z87.891 Personal history of nicotine dependence
CPT/HCPCS: 71271